=== PATIENT | male | born 1945 | race Caucasian/White ===

== ENCOUNTER 2019-04-30 05:51 | Inpatient (IN) | payer MEDICARE, BC ==
[~2019-04-30 05:51] MED LIST: Buffered Lidocaine 1% SYRIN* 1 ML/SYRINGE INTRADERM ONE
[2019-04-30] MEDS ORDERED: Lactated Ringers 1000 ML Bag* 1,000 ML IV SCH (06:00)
[2019-04-30] MEDS ORDERED: Famotidine IV* 10 MG/ML 2 ML (20 mg) IV ONE (06:00)
[2019-04-30] MEDS ORDERED: Buffered Lidocaine 1% SYRIN* 1 ML/SYRINGE INTRADERM ONE ×2 (06:20→07:14)
[2019-04-30] MEDS ORDERED: Famotidine IV* 10 MG/ML 2 ML (20 mg) ONE (06:20)
[2019-04-30] MEDS ORDERED: ceFAZolin 2 GM in NS PREMIX(*) 2 GM/100 ML BAG IVPB ONE ×2 (06:20→12:35)
[2019-04-30] MEDS ORDERED: Lidocaine 1% MPF wEPI 200,000* 30 ML SDV ONE (06:46)
[2019-04-30] MEDS ORDERED: Bacitracin INJECTION* 50,000 UNITS ONE ×2 (06:47→14:02)
[2019-04-30] MEDS ORDERED: Thrombin 5,000 UNITS* 1 APPLIC KIT - topical use - TOPICAL ONE (06:47)
[2019-04-30 07:38] LABS: Hematocrit 46 % (42-52); Hemoglobin 16.1 g/dL (14.0-18.0); Mean Corpuscular HGB Conc 35 g/dL (31-36); Mean Corpuscular Hemoglobin 32 pg (27-31); Mean Corpuscular Volume 90 fL (80-94); Mean Platelet Volume 8.1 fL (7.4-10.4); Platelet Count 122 10^3/uL (150-450); Red Blood Count 5.08 10^6 /uL (4.18-5.48); Red Cell Distribution Width 13 % (10-15); White Blood Count 3.4 10^3/uL (3.5-10.8)
[2019-04-30] MEDS ORDERED: fentaNYL* 50 MCG/ML 5 ML VIAL (250 MCG VIAL) ONE (07:54)
[2019-04-30] MEDS ORDERED: Midazolam* 1 MG/ML 5 ML VIAL (5 MG) ONE (07:54)
[2019-04-30] MEDS ORDERED: Lidocaine 2% PF * 5 ML VIAL ONE (07:59)
[2019-04-30] MEDS ORDERED: DiMENhydriNATE IV* 50 MG/ML VIAL ONE (07:59)
[2019-04-30] MEDS ORDERED: Dexamethasone IV* 4 MG/ML 1 ML (4 MG) ONE (07:59)
[2019-04-30] MEDS ORDERED: Propofol* 500 MG/50 ML BTL ONE ×2 (07:59→10:42)
[2019-04-30] MEDS ORDERED: Succinylcholine* 20 MG/ML 10 ML VIAL ONE (07:59)
[2019-04-30] MEDS ORDERED: Propofol* 10 MG/ML 20 ML BTL ONE ×3 (07:59→14:12)
[2019-04-30] MEDS ORDERED: Ondansetron INJ* 2 MG/ML VIAL ONE (07:59)
[2019-04-30] MEDS ORDERED: fentaNYL* 50 MCG/ML 2 ML VIAL (100 MCG VIAL) ONE (11:35)
[2019-04-30] MEDS ORDERED: Naloxone* 0.4 MG/ML 1 ML VIAL IV PRN (12:58)
[2019-04-30] MEDS ORDERED: DiMENhydriNATE IV* 50 MG/ML VIAL IV PUSH PRN (12:58)
[2019-04-30] MEDS ORDERED: Acetaminophen IV 1GM/100ML * 1,000 MG/100 ML VIAL IVPB ONE (12:58)
[2019-04-30] MEDS ORDERED: Phenylephrine 10 MG/ML VIAL* 1 ML VIAL ONE (13:26)
[2019-04-30] MEDS ORDERED: Phenylephrine 40 MCG/ML SYRINGE ONE (13:26)
[2019-04-30] MEDS ORDERED: HYDROcodone/ACETAMIN 5-325 MG* 1 TAB PO PRN (15:35)
[2019-04-30] MEDS ORDERED: HYDROmorphone INJ1* 1 MG/ML SYRINGE ONE (15:36)
[2019-04-30] MEDS ORDERED: Acetaminophen IV 1GM/100ML * 100 ML ONE (15:36)
[2019-04-30] MEDS: HYDROmorphone INJ1* 1 MG/ML SYRINGE IV PRN ×5 (15:42→16:23)
[2019-04-30] MEDS ORDERED: Acetaminophen TAB* 325 MG PO PRN (15:59)
--- NOTE | 2019-04-30 18:07 | CONSULT ---
Subjective Date of Service: 04/30/19 Interval History: Date of admission 04/30/2019 Date of consult 04/30/2019 Service: Neurosurgery CC: s/p spine surgery Reason for consult: Cardiac management HISTORY OF PRESENT ILLNESS: Mr. Romeo is a 73-year-old man with a history as below admitted for an elective spine surgery that was uncomplicated. He currently has back pain but denies any CP, dyspnea, palpitations or lightheadedness. His who used to direct palliative medicine at this hospital is at bedside. PAST MEDICAL HISTORY: Significant for: 1. Immune thrombocytopenia. 2. Atrial fibrillation. 3. Lumbar disk disease. 4. Depression. 5. Parkinson's. 6. Chronic diastolic congestive heart failure. Most recent LvEF 01/2019 was 50% 7. History of coronary artery disease with mitral valve repair and bypass surgery. 8. Hypertension. 9. Hyperlipidemia. 10. Paroxysmal atrial fibrillation s/p ablation no longer on anticoagulation, had FIDEL thrombus following MV surgery. 11. VT s/p pacemaker/ICD PAST SURGICAL HISTORY: 1. Bypass surgery. 2. Mitral valve repair. 3. Cardiac catheterization. 4. Pacemaker/icd placement. 5. Bilateral hernia repair. 6. Angioplasty. 7. Laminectomy L3-L4. 8. Fusion of the left toe and right foot. ALLERGIES: To STATINS. FAMILY HISTORY: Father with heart disease, mother with hypertension, sister with diabetes, sister with lung cancer. SOCIAL HISTORY: The patient denies any tobacco. Reports occasional alcohol use. Denies any illicit drug use. He lives with his domestic partner, Sada. Surrogate decision maker in the event he is unable to make his own medical decisions is his partner, Sada. He is a full code. Medications Active Medications: Acetaminophen (Tylenol Tab*) 487.5 mg PO Q6H PRN PRN Reason: PAIN Alprazolam (Xanax Tab*) 3 mg PO BEDTIME EMILEE Amantadine HCl (Symmetrel Cap*) 100 mg PO BID EMILEE Atorvastatin Calcium (Lipitor*) 20 mg PO BEDTIME EMILEE; Protocol Carbidopa/Levodopa (Sinemet 25/100 Tab(*)) 3 tab PO TID EMILEE Docusate Sodium (Colace Cap*) 100 mg PO BID EMILEE Entacapone (Comtan(Nf)) 200 mg PO TID EMILEE Lactated Ringer's (Lactated Ringers 1000 Ml Bag*) 1,000 mls @ 75 mls/hr IV .per rate [facility] Losartan Potassium (Cozaar Tab*) 25 mg PO QAM [facility] Nft: Cyanocobalamin/Cobamamide [Vitamin B-12 5,000 Mcg Tab Sl] 5,000 Mcg) 5, 000 mcg PO QAM [facility] Oxycodone HCl (Roxycodone Tab*) 5 mg PO Q4H PRN PRN Reason: PAIN Oxycodone/Acetaminophen (Percocet 5/325 Tab*) 1 tab PO Q4H PRN PRN Reason: PAIN Sotalol HCl (Betapace Tab*) 80 mg PO BID [facility] Home Medications: ALPRAZolam TAB* [Xanax TAB*] 3 mg PO BEDTIME 11/10/13 [History Confirmed ] Amantadine CAP* [Symmetrel CAP*] 100 mg PO BID 11/10/13 [History Confirmed 04/30] Carbidopa/Levodop 25/100 MG(*) [Sinemet 25/100 TAB(*)] 3 tab PO TID 11/10/13 [ History Confirmed 04/30/19] Cannabidiol (Cbd) Extract [Epidiolex] 100 mg PO BEDTIME 03/30/19 [History Confirmed 04/30/19] Cyanocobalamin/Cobamamide [Vitamin B-12 5,000 Mcg Tab Sl] 5,000 mcg PO QAM 03/30 [History Confirmed 04/30/19] Docusate Sodium [Colace] 100 mg PO BID 03/30/19 [History Confirmed 04/30/19] Entacapone 200 mg PO TID 03/30/19 [History Confirmed 04/30/19] Irbesartan 75 mg PO QAM 03/30/19 [History Confirmed 04/30/19] Rosuvastatin Calcium [Crestor] 10 mg PO BEDTIME 03/30/19 [History Confirmed ] Sotalol HCl [Sotalol] 80 mg PO BID 03/30/19 [History Confirmed 04/30/19] Acetaminophen [Acetaminophen Extra Strength] 500 - 1,000 mg PO Q6H PRN 04/23/19 [History Confirmed 04/30/19] Review of Systems - Measurements Intake and Output: Intake and Output Last 24 Hours 06/04/29/19 04/30/19 05/01/19 06:59 06:59 06:59 06:59 Intake Total 2850 Output Total 600 Balance 2250 Weight 215 lb 220 lb 7.396 oz Intake: IV Fluids 2850 LR 2850 Output: Bentley 600 Other: Estimated Blood Loss 200 Comment - Review of Systems Constitutional Symptoms: Negative: Weight Gain, Weight Loss, Weakness Dermatology: Negative: Skin Lesions, Skin Lumps HEENT: Negative: Change in Hearing, Vertigo Eyes: Negative: Change in Vision, Double Vision Thyroid: Negative: Palpitations Pulmonary: Negative: Cough, Sputum, Respiratory Distress, Exercise Intolerance Cardiology: Negative: Chest Pain, Shortness of Breath, Palpitations, Swelling of Ankles, Peripheral Vascular Dis, Edema, Faintness, Syncope, Claudication, Paroxysmal Nocturnal Dyspnea, Orthopnea Gastroenterology: Negative: Abdominal Pain, Nausea, Vomiting, Anorexia, Blood in Stools, Haematemesis, Melena Genital - Urinary: Negative: Dysuria, Hematuria Musculoskeletal: Negative: Joint Pain, Joint Stiffness Endocrinology: Negative: Family Hx Endocrine Disorders, Polydipsia, Polyuria Hematologic/Lymphatic: Negative: Use of Anticoagulant, Use of Antiplatelet Drugs Neurology: Positive: Normal Negative: Migraines, Change in Vision, Diplopia, Change in Speech, Change in Sphincter Function, Hx Seizures Psychiatry: Negative: Unusual Anxiety, Suicidal Ideation Allergic/Immunologic: Negative: Hx HIV, Immunocompromise Review of Systems Statement: All other review of systems negative, unless stated above. Objective Vital Signs: Temp Pulse Resp BP Pulse Ox 97.4 F 80 8 119/85 100 04/30/19 17:04 04/30/19 17:04 04/30/19 17:04 04/30/19 17:04 04/30/19 17:04 Oxygen Devices in Use Now: Nasal Cannula Appearance: nad, pleasant Ears/Nose/Mouth/Throat: Clear Oropharnyx Neck: NL Appearance and Movements; NL JVP, Trachea Midline Respiratory: Symmetrical Chest Expansion and Respiratory Effort, Clear to Auscultation Cardiovascular: - - RRR, no significant murmur, icd site intact and surgical scar noted Abdominal: NL Sounds; No Tenderness; No Distention Extremities: No Edema, No Clubbing, Cyanosis Skin: No Rash or Ulcers Neurological: Alert and Oriented x 3 Laboratory Results: Diagnostic Imaging: Provider: Gurvinder Gutierrez MD DATE OF CARDIAC CATHETERIZATION: 03/23/2016. INDICATION FOR PROCEDURE: Patient with nonsustained ventricular tachycardia with progressive shortness of breath with exertion, asked by Dr. Jerez to perform diagnostic study to rule out the presence of worsening coronary artery disease with history of prior stents in the past involving reportedly the LAD and the right coronary artery with subsequent bypass to the right coronary artery and valve repair of a flail mitral valve leaflet. Left ventriculography could not be performed as the patient virtually had runs of nonsustained ventricular tachycardia and accuracy would be suboptimal. No attempts were made to suppress this with antiarrhythmic therapy given the fact that the plan was for ablation therapy if there was no progression of coronary artery disease. 1. HEMODYNAMIC DATA: Left heart catheterization - ascending aortic pressure was recorded at 97/64 with a mean of 81. Left ventricular pressure 101/left ventricular end-diastolic pressure on normal beats of 14 to 16 mmHg. 2. CORONARY ARTERIOGRAPHY: A. Right coronary artery - totally occluded in its mid segment with diffuse disease seen proximally leading to an 85 percent stenosis prior to an acute marginal branch. There was no antegrade flow to the distal right coronary artery (this was supplied via the vein graft to the right coronary artery). B. Left coronary artery: 1. Left main - widely patent. 2. Left anterior descending artery - there was calcium seen in the proximal portion. The mid stent was seen in the left anterior descending artery. There was mild to moderate in stent restenosis, the degree of narrowing noted to be approximately 30 to 35 percent. The rest of the left anterior descending artery supplied multiple diagonal branches. There was no significant lesion seen. 3. Circumflex artery - a nondominant vessel supplying a thin first obtuse marginal branch followed by a moderate size mid obtuse marginal branch. The moderate size mid obtuse marginal branch appeared to have a proximal/ostial narrowing of 55 to 60 percent in its worst view, appearing less in other views. The continuation of the circumflex supplied two low lying obtuse marginal branches. No significant disease was seen past this point. Vein graft to right coronary artery widely patent with good anastomosis. There was retrograde filling to the posterior left ventricular branch. No significant obstruction was visualized involving the PDA or the posterior left ventricular branch. OVERALL ASSESSMENT: Mild/mild to moderate in stent restenosis in the left anterior descending artery of 35, perhaps approaching 40 percent. No significant narrowing. 55 to 60 percent ostial to proximal narrowing of a moderate size mid obtuse marginal branch. Totally occluded mid right coronary artery with an 85 percent lesion seen just prior to a mid acute marginal branch to the right ventricle. Normal blood flow to the PDA and posterior left ventricular branch via a patent vein graft to the PDA. Normal left ventricular end-diastolic pressure on normal sinus beats with the inability to obtain an accurate left ventriculogram due to ventricular tachycardia, and as such it was not attempted. EKG Data: ekg 04/30/2019 AP-ASSESSMENT DIRECTOR several [place] beats 04/26/2019 nsr several paced beat small inferior q waves st depression [id number] qtc 441 Assessment/Plan Patient s/p elective spine surgery 1. MV repair 2. CAD s/p CABG/CA - LVEF 50% 3. VT - s/p PM/ICD 4. Afib s/p PVI - Has been in NSR - Not on AC or aspirin due to ITP continue sotalol 80 mg po bid continue ARB check bmp, mg tomorrow at very least should be on aspirin now that platelets are stable but with post- operative status this can be deferred to Dr. Gallegos as an outpatient Thank you for allowing me to participate in the cardiovascular care of this patient. Please do not hesitate to contact me with questions or concerns.
[2019-04-30] MEDS: Lactated Ringers 1000 ML Bag* 1,000 ML IV SCH (18:39)
[2019-04-30] MEDS: oxyCODONE/Acetamin 5/325 MG* TAB PO PRN ×2 (18:43→23:30)
--- NOTE | 2019-04-30 20:42 | OP ---
DATE OF OPERATION: 04/30/19 - ROOM #ICU-01 DATE OF : 49 SURGEON: Bo Maya MD MEDICAL SERVICES MANAGER: JULIO CESAR Gonzalez. The case was done with assistance of surgical PA because of the complexity of the case. ANESTHESIA: General. PRE-OP DIAGNOSES: 1. Degenerative disk disease. 2. Adjacent level disease. POST-OP DIAGNOSES: 1. Degenerative disk disease. 2. Adjacent level disease. OPERATIVE PROCEDURE: The patient underwent left L3-4 MIS TLIF with revision of previous instrumentation and fusion at L4 and L5 with removal of L5 pedicle screws, replacement of L4 pedicle screws and placement of L3 pedicle screws with PEEK expandable interbody cage with left iliac crest bone graft through a separate incision, locally harvested autograft and DBX with intraoperative navigation, intraoperative monitoring. ESTIMATED BLOOD LOSS: 100 cc. COMPLICATIONS: None. SUMMARY: The patient is a very pleasant 73-year-old gentleman with multiple medical comorbidities including Parkinson's disease, heart disease, ITP, who has a history of L4-5 posterolateral fusion with pedicle screws and decompression by Dr. Hanna in 2010. The patient returned with complaints of back pain radiating to both lower extremities, left worse than the right, with MRI findings consistent with adjacent level disease. The patient, after failing conservative treatment modalities was offered the option of surgical intervention in the form of revision of L4-5 instrumentation and fusion and left L3-4 TLIF. After explaining the expectations, limitations, and possible complications of the procedure to the patient and his with complications including, but not limited to bleeding, infection, risk of injury to adjacent structures, coma, paralysis, , need for additional procedures, anesthesia risks, stroke, blindness, cancer, instability, hardware failure, adjacent level disease, pseudoarthrosis, spinal fluid leak, possibility of hematoma, intraabdominal content injury, loss of bladder or bowel control, need for transfusions, massive bleeding, need for prolonged ICU stay, prolonged hospitalization, prolonged rehabilitation, need for tracheostomy or gastrostomy ; the patient and his were agreeable to proceed with surgery and informed consent was obtained. The patient understood that his condition may not improve and in fact may get worse after surgery and that he may need to have additional procedures in the future. He also understood that operative plan may be modified according to intraoperative findings and conditions and that the procedure may be abandoned or done in more than 1 stages. DESCRIPTION OF PROCEDURE: The patient was brought to the operating room and was placed under general anesthesia by the anesthesia team. He was carefully positioned prone on the Miko table and all bony prominences were meticulously padded. His skin was prepped and draped in the standard fashion. After appropriate surgical pause and patient identification, the previous midline incision was identified and extended slightly caudal and more cephalad. The skin was undermined to gain access through a lateral approach, of the Mari type. Through a separate skin incision, left iliac crest bone graft was harvested with a Corex needle and the navigation star was secured in place. Intraoperative O-arm imaging was obtained and the patient's data was transferred to the navigation platform under stereotactic navigation. The trajectories of L3 pedicle screws as well as the position of the L4 and L5 pedicle screws were determined. Two small paramedian incisions were made on the dorsal fascia and under stereotactic navigation, the tubular retractor system was brought into the field exposing the right side L4 and L5 pedicle screws through a Mari trajectory. The screw head caps were then gently removed. Synthes Click'X System was used before. The priscila was then gently removed and the L4 and L5 pedicle screws on the right were removed. The right L4 pedicle screw was then replaced with 6.5x50mm Medtronic Voyager ATS pedicle screws while a same size new pedicle screw was placed on L3 after creating a instructor pilot hole with high-speed drill and cannulating the pedicle with awl-tip tap. The procedure was then repeated for the instrumentation on the left side. Then , attention was brought out to place the METRx retractor system over the left L3 -4 facet in conjunction with the left L3 lamina as well as base of the spinous process. After exposing all the bony elements, high-speed drill and Kerrison punches were used to perform a medial facetectomy, partial laminectomy, as well as partial removal of the pars, as well as removal of part of the superior L4 lamina. Locally harvested bone graft was saved to use for the arthrodesis part of the procedure. The ligamentum flavum was then gently elevated and removed with Kerrison punches. The thecal sac as well as the L4 nerve root were readily identified and were gently retracted. A standard diskectomy and preparation of the disk space was performed after incising the annulus fibrosus with a #15 surgical blade. A series of pituitary rongeurs, dilators and curettes were used to perform the preparation of the endplate and disk space. Then, a mixture of iliac crest bone graft, locally harvested autograft and DBX were placed into the disk space and a 10-mm expandable Elevate Medtronic PEEK cage was inserted after being packed with the mixture of the bone graft. The cage was then expanded and after confirmation of meticulous hemostasis, copious irrigation, and meticulous inspection, the tubular retractor was removed. The priscila size was then determined with use of a caliper and 2 cobalt chrome rods were inserted with the same facia wound incisions and secured with screw head caps. A second O-arm imaging was obtained, which confirmed excellent placement of all hardware. After copious irrigation, confirmation of meticulous hemostasis, and after securing the screw head caps and removing the priscila inserters, the dorsal fascia defects were closed with 0 interrupted Vicryl sutures and the wound was closed by layers with inverted interrupted 0 and 2-0 Vicryl sutures for subcutaneous tissue. 2-0 inverted interrupted Vicryl sutures were used to approximate the subcutaneous tissue at the left iliac crest incision. Both incisions were covered with Dermabond. At the end of the procedure, all counts were reported to be correct. The patient remained hemodynamically stable and intraoperative electro-physiological monitoring remained stable throughout the case. The patient was then turned supine, was extubated and was transferred to Recovery in excellent condition. [id number]/[facility] #: [id number] KEIKO
[2019-04-30] MEDS: ALPRAZolam TAB* 0.5 MG PO SCH (21:12)
[2019-04-30] MEDS: Amantadine CAP* 100 MG PO SCH (21:13)
[2019-04-30] MEDS: Docusate CAP* 100 MG PO SCH (21:13)
[2019-04-30] MEDS: CMCS: Entacapone (NF) 200 MG TAB PO SCH (21:13)
[2019-04-30] MEDS: Atorvastatin* 20 MG TAB PO SCH (21:13)
[2019-04-30] MEDS: Sotalol TAB* 80 MG PO SCH (21:13)
[2019-04-30] MEDS: Carbidopa/Levodop 25/100 MG TAB(*) PO SCH (21:13)
[2019-05-01] MEDS: oxyCODONE TAB* 5 MG TAB PO PRN ×4 (01:12→23:46)
--- NOTE | 2019-05-01 03:07 | CONS ---
[facility] MEDICINE CONSULTATION REPORT: DATE OF CONSULT: 04/30/19 PROVIDER: Kellen Herrera NP ATTENDING PHYSICIAN: Dr. Maya. CONSULTING PHYSICIAN: John Pritchard M.D. REASON FOR CONSULT: Co-management of chronic medical conditions. HISTORY OF PRESENT ILLNESS: Mr. Romeo is a 73-year-old male with a past medical history significant for ITP, atrial fibrillation, past history of apical appendage clot, hypertension, hyperlipidemia, lumbar disk disease, depression, Parkinson's, atrial fibrillation, chronic diastolic congestive heart failure, hyperlipidemia, who presented to [facility] for an elective decompression surgery and fusion of the L-spine with Dr. Maya. For complete details, please see the dictated H and P from Dr. Maya. In brief, the patient had ongoing pain, failed conservative measures. Therefore, opted to have lumbar fusion with Dr. Maya. Due to his history of ITP, atrial fibrillation, Parkinson's, depression, history of coronary artery disease and chronic diastolic congestive heart failure, hypertension, hyperlipidemia, we were asked to consult to help co- manage his chronic medical conditions. PAST MEDICAL HISTORY: Significant for: 1. Immune thrombocytopenia. 2. Atrial fibrillation. 3. Lumbar disk disease. 4. Depression. 5. Parkinson's. 6. Chronic diastolic congestive heart failure. 7. History of coronary artery disease with mitral valve repair and bypass surgery. 8. Hypertension. 9. Hyperlipidemia. PAST SURGICAL HISTORY: 1. Bypass surgery. 2. Mitral valve repair. 3. Cardiac catheterization. 4. Pacemaker placement. 5. Bilateral hernia repair. 6. Angioplasty. 7. Laminectomy L3-L4. 8. Fusion of the left toe and right foot. HOME MEDICATIONS: 1. Alprazolam 3 mg p.o. at bedtime. 2. Symmetrel 100 mg p.o. b.i.d. 3. Atorvastatin 20 mg at bedtime. 4. Carbidopa/levodopa 25/100 3 tablets 3 times a day. 5. Acetaminophen extra strength 500 to 1000 mg every 6 hours as needed for pain. 6. Vitamin B12 5000 mcg p.o. q.a.m. 7. Colace 100 mg p.o. b.i.d. 8. Irbesartan 75 mg p.o. daily. 9. Crestor 10 mg p.o. daily. 10. Sotalol 80 mg p.o. b.i.d. 11. Entacapone 200 mg p.o. t.i.d. ALLERGIES: To STATINS. FAMILY HISTORY: Father with heart disease, mother with hypertension, sister with diabetes, sister with lung cancer. SOCIAL HISTORY: The patient denies any tobacco. Reports occasional alcohol use. Denies any illicit drug use. He lives with his domestic partner, Sada. Surrogate decision maker in the event he is unable to make his own medical decisions is his partner, Sada. He is a full code. REVIEW OF SYSTEMS: He denies any fever, chills, unintended weight loss, chest pain, or edema. Denies any cough, hemoptysis, or shortness of breath. He does report he had an episode of vomiting approximately 2 days ago. No diarrhea or abdominal pain. No hematuria or dysuria. Denies any focal weakness or sensory loss. He does complain of left leg weakness and gait abnormality that is chronic. The left leg is worse than the right due to his Parkinson's. No visual complaints. He does report occasional difficulty swallowing. Denies any arthralgias or myalgias, rashes, lesions or open sores, psychosis or anxiety. PHYSICAL EXAMINATION: General: At this time, Mr. Romeo is a 73-year-old male. He is resting comfortably in his hospital room in bed. He is in no acute distress. Vital Signs: Blood pressure 124/64, heart rate 81, respirations are 16, O2 saturation 99%, temperature of 97.4. HEENT: Head is atraumatic, normocephalic. Eyes: EOMs are intact. Sclerae anicteric and not pale. Oral mucosa appeared to be moist. Neck is supple. Lungs are clear to auscultation bilaterally. No wheezes, rales, or rhonchi. Cardiac: S1, S2. Regular rate and rhythm. No rubs or gallops. Abdomen is soft and nontender. Bowel sounds are present x4. Extremities: He is able to feel bilateral lower extremities. Pedal pulses are +2. Sensation is intact. Neurologic: He is awake, alert, oriented x3. Speech is clear. Thought process is intact. There are no gross focal deficits. LABORATORY DATA AND DIAGNOSTIC STUDIES: WBCs are 3.4, RBCs 5.08, hemoglobin 16.1, hematocrit was 46, platelet count was 122. INR on 04/23/19 was 1.05. Sodium was 139, potassium 4.0, chloride 102, carbon dioxide 32, anion gap was 5 , BUN was 23, creatinine 1.02, glucose was 90, calcium 9.8. Urine was within normal limits with exception of specific gravity of 1.033, ketones were trace. IMPRESSION AND PLAN: Mr. Romeo is a 73-year-old male with past medical history significant for atrial fibrillation with ICD pacemaker, immune thrombocytopenia, lumbar disk disease, depression, Parkinson's, coronary artery disease, status post bypass, hypertension, hyperlipidemia, and chronic diastolic congestive heart failure, who presented to [facility] for an elective lumbar fusion with Dr. Maya. In the immediate postoperative period, he has no complaints. Our recommendations are as follows: 1. Status post lumbar TLIF revision and fusion at L4-L5. Management per Neurosurgery. PT/OT per Neurosurgery. Pain management per Neurosurgery. Bowel regimen per Neurosurgery. 2. Atrial fibrillation and coronary artery disease. I agree with the recommendations from Cardiology. We will get an EKG, repeat a BMP and mag in the a.m. and continue him on his sotalol for atrial fibrillation. 3. Hypertension. We will continue on Avapro 75 mg p.o. daily. 4. Hyperlipidemia. He will continue on his Crestor 10 mg p.o. daily as previously prescribed. 5. Parkinson's. The patient currently takes Sinemet 25/100 3 tablets 3 times a day. I would recommend that we continue his Sinemet as previously prescribed. 6. Anxiety, depression. He should continue on alprazolam 3 mg as previously prescribed. 7. Immune thrombocytopenia. I would recommend repeat CBC and monitor the patient's platelet count. I would avoid anticoagulation unless advised by Hematology and Oncology. We will defer DVT prophylaxis to Oncology and Neurosurgery. 8. FEN. He can have a heart healthy, caffeine okay diet. 9. Code status. He is a full code. 10. DVT prophylaxis. Per Neurosurgery and Hematology-Oncology. TIME SPENT: Time spent on this consultation was 60 minutes, greater than half the time was spent at the bedside reviewing events leading thus far to this hospitalization, performing physical exam and reviewing my plan of care. I discussed this with my attending, Dr. John Pritchard; he is in agreement with my plan. KELLEN HERRERA, FILM DEVELOPING MACHINE OPERATOR [id number]/[facility] #: [id number] [facility] HOSPITALDeonte
[2019-05-01 05:44] LABS: Hematocrit 41 % (42-52); Hemoglobin 14.3 g/dL (14.0-18.0); Mean Corpuscular HGB Conc 35 g/dL (31-36); Mean Corpuscular Hemoglobin 32 pg (27-31); Mean Corpuscular Volume 91 fL (80-94); Mean Platelet Volume 7.8 fL (7.4-10.4); Platelet Count 105 10^3/uL (150-450); Red Blood Count 4.49 10^6 /uL (4.18-5.48); Red Cell Distribution Width 13 % (10-15); White Blood Count 7.3 10^3/uL (3.5-10.8)
[2019-05-01 06:07] LABS: BUN/Creatinine Ratio 16.8 (8-20); Calcium 8.7 mg/dL (8.6-10.3); EGFR African American 94.6 (>60); EGFR Non-African American 78.2 (>60); Magnesium 1.7 mg/dL (1.9-2.7); Potassium 4.4 mmol/L (3.5-5.0)
[2019-05-01] MEDS: oxyCODONE/Acetamin 5/325 MG* TAB PO PRN ×4 (07:03→23:46)
[2019-05-01] MEDS: Lactated Ringers 1000 ML Bag* 1,000 ML IV SCH (07:03)
[2019-05-01] MEDS ORDERED: Magnesium Sulfate IV* 3 GM in NS 0.9% 100 ML* 100 ML IVPB ONE (07:58)
[2019-05-01] MEDS ORDERED: NS 0.9% 100 ML* 100 ML ONE (08:36)
--- NOTE | 2019-05-01 08:36 | PN ---
Progress Note - Progress Note Date of Service: 05/01/19 SOAP: Subjective: 73 y/o male post TLIF of L3/L4, L4/L5 POD # 1 with ITP, AFIB, and BPH, patient is recovering well in ICU. He reports improvement with his radicular and axial pain. He does have some discomfort around the incision, but feels pain has been well controlled with pain medication. The order was put to D/C rubalcava, but patient wanted to keep it in because he typically has frequent urination due to his BPH. This morning he denies SOB, CP or palpations. He has been tolerating orals over night. Patient doing well, will possible be transferred to step down unit. Objective: Vital Signs - 12 hr Temp Pulse Resp BP Pulse Ox 05/01/19 08:01 71 22 111/65 99 05/01/19 08:00 64 23 96 05/01/19 07:03 12 05/01/19 07:01 13 103/59 99 05/01/19 07:00 23 98 05/01/19 06:00 99.1 F 70 11 87/50 100 05/01/19 05:00 68 11 77/47 98 05/01/19 04:00 70 10 84/47 94 05/01/19 03:44 98.9 F 05/01/19 03:02 70 11 78/48 96 05/01/19 03:00 71 12 79/47 97 05/01/19 02:01 76 9 88/49 94 05/01/19 02:00 83 20 95 05/01/19 01:00 80 12 99/66 98 05/01/19 00:18 85 21 93 05/01/19 00:01 86 13 80/55 95 05/01/19 00:00 78 12 94 04/30/19 23:36 99.7 F 04/30/19 23:30 17 04/30/19 23:01 81 7 107/58 97 04/30/19 23:00 84 3 97 04/30/19 22:00 77 16 95 04/30/19 21:12 17 04/30/19 21:00 70 13 99 General: Patient laying flat in bed, NAD Neuro: GCS 15. A&O x 3, CN - XII grossly intact, EOM intact. UPE motor strength 5/5, LE motor strength 5/5 bilaterally Derm: wound C/D/I Assessment: 73 y/o post TLIF of L3/L4, L4/L5 POD#1 doing well, having some some post op pain controlled with medication. Patient has been stable in ICU and will possible be transferred out to step down unit. Plan: 1) Transfer to step down unit 2) continue follow up Medicine recommendations 3) Follow up Cardiology recommendations 4) Follow up Hematology recommendations 5) work with PT/OT 6) Follow up CBC results monitor platelet count 7) Get AP lateral Xrays this morning.
[2019-05-01] MEDS: Sotalol TAB* 80 MG PO SCH ×2 (08:43→21:48)
[2019-05-01] MEDS: Amantadine CAP* 100 MG PO SCH ×2 (08:43→21:47)
[2019-05-01] MEDS: Losartan TAB* 25 MG PO SCH (08:43)
[2019-05-01] MEDS: Carbidopa/Levodop 25/100 MG TAB(*) PO SCH ×3 (08:43→21:48)
[2019-05-01] MEDS: Docusate CAP* 100 MG PO SCH ×2 (08:44→21:48)
[2019-05-01] MEDS: CMCS: Entacapone (NF) 200 MG TAB PO SCH ×3 (08:44→21:49)
[2019-05-01] MEDS: COBAMAMIDE PO SCH (08:45)
[2019-05-01] MEDS: CYANOCOBALAMIN PO SCH (08:45)
--- NOTE | 2019-05-01 09:26 | PN ---
Subjective Date of Service: 05/01/19 Interval History: f/u POD 1 spine surgery, CAD/CABG, MV repair, VT, PM/ICD, Pafib patient has low back pain no cp or dyspnea tele: NSR, paced rhythm intermittent, pvcs Medications Active Medications: Acetaminophen (Tylenol Tab*) 487.5 mg PO Q6H PRN PRN Reason: PAIN Last Admin: 05/01/19 08:43 Dose: 487.5 mg Alprazolam (Xanax Tab*) 3 mg PO BEDTIME [facility] Last Admin: 04/30/19 21:12 Dose: 3 mg Amantadine HCl (Symmetrel Cap*) 100 mg PO BID [facility] Last Admin: 05/01/19 08:43 Dose: 100 mg Atorvastatin Calcium (Lipitor*) 20 mg PO BEDTIME [facility]; Protocol Last Admin: 04/30/19 21:13 Dose: 20 mg Carbidopa/Levodopa (Sinemet 25/100 Tab(*)) 3 tab PO TID [facility] Last Admin: 05/01/19 08:43 Dose: 3 tab Docusate Sodium (Colace Cap*) 100 mg PO BID [facility] Last Admin: 05/01/19 08:44 Dose: 100 mg Entacapone (Comtan(Nf)) 200 mg PO TID [facility] Last Admin: 05/01/19 08:44 Dose: 200 mg Lactated Ringer's (Lactated Ringers 1000 Ml Bag*) 1,000 mls @ 75 mls/hr IV .per rate [facility] Last Admin: 05/01/19 07:03 Dose: 75 mls/hr Magnesium Sulfate 3 gm/ Sodium (Chloride) 106 mls @ 53 mls/hr IVPB ONCE ONE Stop: 05/01/19 09:57 Last Admin: 05/01/19 08:40 Dose: 53 mls/hr Losartan Potassium (Cozaar Tab*) 25 mg PO QAM [facility] Last Admin: 05/01/19 08:43 Dose: 25 mg Nft: Cyanocobalamin/Cobamamide [Vitamin B-12 5,000 Mcg Tab Sl] 5,000 Mcg) 5, 000 mcg PO QAM [facility] Last Admin: 05/01/19 08:45 Dose: Not Given Oxycodone HCl (Roxycodone Tab*) 5 mg PO Q4H PRN PRN Reason: PAIN Last Admin: 05/01/19 01:12 Dose: 5 mg Oxycodone/Acetaminophen (Percocet 5/325 Tab*) 1 tab PO Q4H PRN PRN Reason: PAIN Last Admin: 05/01/19 07:03 Dose: 1 tab Sotalol HCl (Betapace Tab*) 80 mg PO BID [facility] Last Admin: 05/01/19 08:43 Dose: 80 mg Objective Vital Signs: Temp Pulse Resp BP Pulse Ox 99.1 F 72 16 109/67 96 05/01/19 08:00 05/01/19 09:01 05/01/19 09:01 05/01/19 09:01 05/01/19 09:01 Oxygen Devices in Use Now: Nasal Cannula Appearance: nad, pleasant Ears/Nose/Mouth/Throat: Clear Oropharnyx Neck: NL Appearance and Movements; NL JVP, Trachea Midline Respiratory: Symmetrical Chest Expansion and Respiratory Effort, Clear to Auscultation Cardiovascular: - - RRR, no significant murmur, icd site intact and surgical scar noted Abdominal: NL Sounds; No Tenderness; No Distention Extremities: No Edema, No Clubbing, Cyanosis Skin: No Rash or Ulcers Neurological: Alert and Oriented x 3 Laboratory Results: 05/01/19 05:27 05/01/19 05:27 mg 1.7 this am Diagnostic Imaging: Provider: Gurvinder Gutierrez MD DATE OF CARDIAC CATHETERIZATION: 03/23/2016. INDICATION FOR PROCEDURE: Patient with nonsustained ventricular tachycardia with progressive shortness of breath with exertion, asked by Dr. Jerez to perform diagnostic study to rule out the presence of worsening coronary artery disease with history of prior stents in the past involving reportedly the LAD and the right coronary artery with subsequent bypass to the right coronary artery and valve repair of a flail mitral valve leaflet. Left ventriculography could not be performed as the patient virtually had runs of nonsustained ventricular tachycardia and accuracy would be suboptimal. No attempts were made to suppress this with antiarrhythmic therapy given the fact that the plan was for ablation therapy if there was no progression of coronary artery disease. 1. HEMODYNAMIC DATA: Left heart catheterization - ascending aortic pressure was recorded at 97/64 with a mean of 81. Left ventricular pressure 101/left ventricular end-diastolic pressure on normal beats of 14 to 16 mmHg. 2. CORONARY ARTERIOGRAPHY: A. Right coronary artery - totally occluded in its mid segment with diffuse disease seen proximally leading to an 85 percent stenosis prior to an acute marginal branch. There was no antegrade flow to the distal right coronary artery (this was supplied via the vein graft to the right coronary artery). B. Left coronary artery: 1. Left main - widely patent. 2. Left anterior descending artery - there was calcium seen in the proximal portion. The mid stent was seen in the left anterior descending artery. There was mild to moderate in stent restenosis, the degree of narrowing noted to be approximately 30 to 35 percent. The rest of the left anterior descending artery supplied multiple diagonal branches. There was no significant lesion seen. 3. Circumflex artery - a nondominant vessel supplying a thin first obtuse marginal branch followed by a moderate size mid obtuse marginal branch. The moderate size mid obtuse marginal branch appeared to have a proximal/ostial narrowing of 55 to 60 percent in its worst view, appearing less in other views. The continuation of the circumflex supplied two low lying obtuse marginal branches. No significant disease was seen past this point. Vein graft to right coronary artery widely patent with good anastomosis. There was retrograde filling to the posterior left ventricular branch. No significant obstruction was visualized involving the PDA or the posterior left ventricular branch. OVERALL ASSESSMENT: Mild/mild to moderate in stent restenosis in the left anterior descending artery of 35, perhaps approaching 40 percent. No significant narrowing. 55 to 60 percent ostial to proximal narrowing of a moderate size mid obtuse marginal branch. Totally occluded mid right coronary artery with an 85 percent lesion seen just prior to a mid acute marginal branch to the right ventricle. Normal blood flow to the PDA and posterior left ventricular branch via a patent vein graft to the PDA. Normal left ventricular end-diastolic pressure on normal sinus beats with the inability to obtain an accurate left ventriculogram due to ventricular tachycardia, and as such it was not attempted. EKG Data: ekg 04/30/2019 [employer] several hopi beats 04/26/2019 nsr several paced beat small inferior q waves st depression v4-v6 qtc 441 Assessment/Plan Patient s/p elective spine surgery 1. MV repair 2. CAD s/p CABG/CO - LVEF 50% 3. VT - s/p PM/ICD 4. Afib s/p PVI - Has been in NSR - Not on AC or aspirin due to ITP continue sotalol 80 mg po bid continue ARB mg 1.7, give 3 grams IV x 1 now (ordered). Advised start oral supplement as outpatient have level rechecked at some point at very least should be on aspirin now that platelets are stable but with post- operative status this can be deferred to Dr. Gallegos as an outpatient Thank you for allowing me to participate in the cardiovascular care of this patient. Please do not hesitate to contact me with questions or concerns.
[2019-05-01] MEDS: Polyethylene Glycol 3350* 17 GM PACKET PO SCH (12:31)
[2019-05-01] MEDS ORDERED: Cyclobenzaprine TAB* 10 MG PO PRN (16:30)
--- NOTE | 2019-05-01 17:58 | PN ---
Progress Note - Progress Note Date of Service: 05/01/19 SOAP: Subjective: [Patient is POD #1 s/p TLIF. Neurosurgery requested hematology consultation due to h/o ITP. Platelets had been stable at ~35-45K since 2015 without major bleeding episodes. Due to increasing back pain secondary to spinal stenosis and plans for a surgical procedure his ITP was treated initially with high dose dexamethasone starting the end of January. He unfortunately did not respond to dexamethasone and was treated with IVIG after which he had a good response and his preoperative platelets were 120K. Patient reports he is doing well postoperatively. No bleeding complications. Transferred out of ICU to surgical floor earlier today. Objective: [ Vital Signs: Temp Pulse Resp BP Pulse Ox 98.0 F 88 18 110/64 98 05/01/19 15:32 05/01/19 15:32 05/01/19 16:47 05/01/19 15:32 05/01/19 15:32 Acetaminophen (Tylenol Tab*) 487.5 mg PO Q6H PRN PRN Reason: PAIN Last Admin: 05/01/19 08:43 Dose: 487.5 mg Alprazolam (Xanax Tab*) 3 mg PO BEDTIME [facility] Last Admin: 04/30/19 21:12 Dose: 3 mg Amantadine HCl (Symmetrel Cap*) 100 mg PO BID [facility] Last Admin: 05/01/19 08:43 Dose: 100 mg Atorvastatin Calcium (Lipitor*) 20 mg PO BEDTIME [facility]; Protocol Last Admin: 04/30/19 21:13 Dose: 20 mg Carbidopa/Levodopa (Sinemet 25/100 Tab(*)) 3 tab PO TID [facility] Last Admin: 05/01/19 14:08 Dose: 3 tab Cyclobenzaprine HCl (Flexeril Tab*) 10 mg PO TID PRN PRN Reason: muscle ache Last Admin: 05/01/19 16:47 Dose: 10 mg Docusate Sodium (Colace Cap*) 100 mg PO BID [facility] Last Admin: 05/01/19 08:44 Dose: 100 mg Entacapone (Comtan(Nf)) 200 mg PO TID [facility] Last Admin: 05/01/19 14:08 Dose: 200 mg Losartan Potassium (Cozaar Tab*) 25 mg PO QAM [facility] Last Admin: 05/01/19 08:43 Dose: 25 mg Nft: Cyanocobalamin/Cobamamide [Vitamin B-12 5,000 Mcg Tab Sl] 5,000 Mcg) 5, 000 mcg PO QAM [facility] Last Admin: 05/01/19 08:45 Dose: Not Given Oxycodone HCl (Roxycodone Tab*) 5 mg PO Q4H PRN PRN Reason: PAIN Last Admin: 05/01/19 13:08 Dose: 5 mg Oxycodone/Acetaminophen (Percocet 5/325 Tab*) 1 tab PO Q4H PRN PRN Reason: PAIN Last Admin: 05/01/19 13:07 Dose: 1 tab Polyethylene Glycol/Electrolytes (Miralax*) 17 gm PO DAILY [facility] Last Admin: 05/01/19 12:31 Dose: 17 gm Sotalol HCl (Betapace Tab*) 80 mg PO BID [facility] Last Admin: 05/01/19 08:43 Dose: 80 mg Laboratory Results - last 24 hr 05/01/19 05/01/19 05:27 05:27 WBC 7.3 RBC 4.49 Hgb 14.3 Hct 41 L MCV 91 MCH 32 H MCHC 35 RDW 13 Plt Count 105 L MPV 7.8 Sodium 135 Potassium 4.4 Chloride 103 Carbon Dioxide 28 Anion Gap 4 BUN 16 Creatinine 0.95 Est GFR ( Amer) 94.6 Est GFR (Non-Af Amer) 78.2 BUN/Creatinine Ratio 16.8 Glucose 123 H Calcium 8.7 Magnesium 1.7 L Exam: Gen: Relatively well appearing 73 yo male in NAD HEENT: MMM CV: RRR Resp: CTA MS: not examined Skin: no obvious bleeding/bruising] Assessment: [This is a 73 yo male with longstanding history of ITP treated in 02/2019 with IVIG with a subsequent positive response. He has had no bleeding complications perioperatively.] Plan: [1. h/o ITP - platelets remain stable and >100K - recommend daily CBC - if platelets fall, will repeat IVIG 2. Spinal stenosis s/p TLIF - management per neurosurgery Dispo: hematology will follow daily CBC]
--- NOTE | 2019-05-01 18:45 | PN ---
Subjective Date of Service: 05/01/19 Interval History: Seen this morning in ICU before he was transferred to [facility]. He report mild numbness of his right thigh but otherwise no acute events. Surgery cleared him to start PT. taking po well. pain seems to be controlled. Mag was 1.7 supplemented by Cardiology already. Past Medical History: Unchanged from Admission Objective Active Medications: Acetaminophen (Tylenol Tab*) 487.5 mg PO Q6H PRN PRN Reason: PAIN Last Admin: 05/01/19 08:43 Dose: 487.5 mg Alprazolam (Xanax Tab*) 3 mg PO BEDTIME [facility] Last Admin: 04/30/19 21:12 Dose: 3 mg Amantadine HCl (Symmetrel Cap*) 100 mg PO BID [facility] Last Admin: 05/01/19 08:43 Dose: 100 mg Atorvastatin Calcium (Lipitor*) 20 mg PO BEDTIME [facility]; Protocol Last Admin: 04/30/19 21:13 Dose: 20 mg Carbidopa/Levodopa (Sinemet 25/100 Tab(*)) 3 tab PO TID [facility] Last Admin: 05/01/19 14:08 Dose: 3 tab Cyclobenzaprine HCl (Flexeril Tab*) 10 mg PO TID PRN PRN Reason: muscle ache Last Admin: 05/01/19 16:47 Dose: 10 mg Docusate Sodium (Colace Cap*) 100 mg PO BID [facility] Last Admin: 05/01/19 08:44 Dose: 100 mg Entacapone (Comtan(Nf)) 200 mg PO TID [facility] Last Admin: 05/01/19 14:08 Dose: 200 mg Losartan Potassium (Cozaar Tab*) 25 mg PO QAM [facility] Last Admin: 05/01/19 08:43 Dose: 25 mg Nft: Cyanocobalamin/Cobamamide [Vitamin B-12 5,000 Mcg Tab Sl] 5,000 Mcg) 5, 000 mcg PO QAM [facility] Last Admin: 05/01/19 08:45 Dose: Not Given Oxycodone HCl (Roxycodone Tab*) 5 mg PO Q4H PRN PRN Reason: PAIN Last Admin: 05/01/19 13:08 Dose: 5 mg Oxycodone/Acetaminophen (Percocet 5/325 Tab*) 1 tab PO Q4H PRN PRN Reason: PAIN Last Admin: 05/01/19 13:07 Dose: 1 tab Polyethylene Glycol/Electrolytes (Miralax*) 17 gm PO DAILY [facility] Last Admin: 05/01/19 12:31 Dose: 17 gm Sotalol HCl (Betapace Tab*) 80 mg PO BID [facility] Last Admin: 05/01/19 08:43 Dose: 80 mg Vital Signs - 8 hr 05/01/19 05/01/19 05/01/19 11:18 12:36 13:07 Temperature 99 F Pulse Rate 70 Respiratory 18 16 18 Rate Blood Pressure 98/54 (mmHg) O2 Sat by Pulse 98 Oximetry 05/01/19 05/01/19 05/01/19 13:08 15:07 15:32 Temperature 98.0 F Pulse Rate 88 Respiratory 18 16 16 Rate Blood Pressure 110/64 (mmHg) O2 Sat by Pulse 98 Oximetry 05/01/19 16:47 Temperature Pulse Rate Respiratory 18 Rate Blood Pressure (mmHg) O2 Sat by Pulse Oximetry Oxygen Devices in Use Now: None Appearance: awake, alert. no distress Eyes: No Scleral Icterus Ears/Nose/Mouth/Throat: NL Teeth, Lips, Gums, Mucous Membranes Moist Neck: NL Appearance and Movements; NL JVP, Trachea Midline Respiratory: Symmetrical Chest Expansion and Respiratory Effort, Clear to Auscultation Cardiovascular: NL Sounds; No Murmurs; No JVD, RRR Abdominal: NL Sounds; No Tenderness; No Distention Extremities: No Edema Neurological: Alert and Oriented x 3 Result Diagrams: 05/01/19 05:27 05/01/19 05:27 Microbiology and Other Data: Microbiology 04/30/19 17:09 Nasal Screen MRSA (PCR) - Final Nasal Mrsa Not Detected Assess/Plan/Problems-Billing Assessment: 73 y/o male admitted for TLIF of L3/L4, L4/L5 POD # 1 history of ITP, Parkinson , Afib, CAD we were to follow and comanage his parkinsons along with his Hematology for ITP and CAD/Afib with Cardiology - Patient Problems (1) Lumbar stenosis Current Visit: Yes Status: Acute Code(s): M48.061 - SPINAL STENOSIS, LUMBAR REGION WITHOUT NEUROGENIC YEN SNOMED Code(s): 15959377 Comment: - s/p TLIF of L3/L4, L4/L5 POD # 1 - Pain and activity as per neurosurgery (2) History of ITP Current Visit: Yes Status: Acute Code(s): Z86.2 - PRSNL HISTORY OF [facility] Code(s): 940072302 Comment: - Hematology on board - CBC daily and treatment with IVIG if platelet drops (3) Afib Current Visit: Yes Status: Acute Code(s): I48.91 - UNSPECIFIED ATRIAL FIBRILLATION SNOMED Code(s): 15493245 Comment: - Cardiology on board - s/p PPM/ICD. Continue sotalol 80 mg po bid and ARB losartan 25 mg daily - Mg 1.7, s/p 3 grams IV x 1 ordered by cardiology - f/u BMP ang mag in am (4) Depression Current Visit: Yes Status: Acute Code(s): F32.9 - MAJOR DEPRESSIVE DISORDER , SINGLE EPISODE, UNSPECIFIED SNOMED Code(s): 27134675 Comment: - Xanax 3 mg at bedtime (5) Parkinson disease Current Visit: Yes Status: Acute Code(s): G20 - PARKINSON'S DISEASE SNOMED Code(s): 54558264 Comment: - Continue sinemet 25/100 3 tabs tid - Continue amantadine 100 mg bid - Continue entacapone 200mg tid (6) Hyperlipidemia Current Visit: Yes Status: Acute Code(s): E78.5 - HYPERLIPIDEMIA, UNSPECIFIED SNOMED Code(s): 82727968 Comment: - Atorvastatin 20 mg HS (7) Hypertension Current Visit: Yes Status: Acute Code(s): I10 - ESSENTIAL (PRIMARY) HYPERTENSION SNOMED Code(s): 16652972 (8) DVT prophylaxis Current Visit: Yes Status: Acute Code(s): Z29.9 - ENCOUNTER FOR PROPHYLACTIC MEASURES, UNSPECIFIED SNOMED Code(s): 381629764 Comment: - AT present time ambulation - heparin product contraindicated given his ITP, however if needed for any other reason arixtra off label can be utilized.
[2019-05-01] MEDS: Atorvastatin* 20 MG TAB PO SCH (21:48)
[2019-05-01] MEDS: ALPRAZolam TAB* 0.5 MG PO SCH (21:50)
[2019-05-02 06:10] LABS: Hematocrit 39 % (42-52); Hemoglobin 13.4 g/dL (14.0-18.0); Mean Corpuscular HGB Conc 35 g/dL (31-36); Mean Corpuscular Hemoglobin 31 pg (27-31); Mean Corpuscular Volume 90 fL (80-94); Mean Platelet Volume 7.7 fL (7.4-10.4); Platelet Count 98 10^3/uL (150-450); Red Blood Count 4.32 10^6 /uL (4.18-5.48); Red Cell Distribution Width 13 % (10-15); White Blood Count 6.3 10^3/uL (3.5-10.8)
[2019-05-02 06:11] LABS: ABS Eosinophils 0.1 10^3/ul (0-0.6); ABS Neutrophils 4.1 10^3/ul (1.5-7.7); Eosinophil % 1.1 %; Lymphocyte % 16.3 %; Nucleated Red Blood Cells % 0.1
[2019-05-02 06:22] LABS: BUN/Creatinine Ratio 18.8 (8-20); Calcium 8.3 mg/dL (8.6-10.3); EGFR African American 115.3 (>60); EGFR Non-African American 95.3 (>60); Magnesium 1.9 mg/dL (1.9-2.7); Potassium 3.7 mmol/L (3.5-5.0)
--- NOTE | 2019-05-02 08:43 | PN ---
Progress Note - Progress Note Date of Service: 05/02/19 SOAP: Subjective: 73 y/o male s/p TLIF POD #2, he was transferred to [facility] yesterday, he been doing well. Patient reports that his pain has improved, but has some some discomfort around incision. Patient has been getting out of bed to use restroom, but has not walked with PT/OT. He reports having some dizziness with standing. The pain in his back and legs have improved, reports some numbness in the right lateral thigh that is improving. He tolerates orals, has been passing gas, but has not had BM. Overall patient is doing is currently pending OT consult to possible referral to [facility]. Objective: Vital Signs - 12 hr Temp Pulse Resp BP Pulse Ox 05/02/19 07:25 99.4 F 61 16 113/66 96 05/02/19 03:26 98.3 F 76 18 117/68 98 05/02/19 02:01 18 05/01/19 23:51 16 05/01/19 23:46 16 05/01/19 23:23 98.9 F 56 16 105/64 92 05/01/19 21:50 18 05/01/19 21:28 18 05/01/19 21:27 18 General: laying in bed elevated comfortable, at bed side. Neuro: GCS 15, A&O x 3, CN II - XII, UPE motor strength 5/5, LE motor strength 5/5, decrease sensation of lateral thigh with light touch. Abdomen: Soft non tender, BS active in all quadrants Derm: wound C/D/I Assessment: 73 y/o male post TLIF POD # 2, pain control better managed, patient still feel a little unsteady on feet, will possible need some acute rehab. Plan: D/C planning to [facility] Continue to follow platelet continue Continue work with PT/OT Follow Medicine Recommendations Follow Cardiology recommendations Follow Hematology recommendations Give suppository PRN
[2019-05-02] MEDS: oxyCODONE TAB* 5 MG TAB PO PRN ×3 (09:01→22:20)
[2019-05-02] MEDS: oxyCODONE/Acetamin 5/325 MG* TAB PO PRN ×3 (09:01→17:43)
[2019-05-02] MEDS: Carbidopa/Levodop 25/100 MG TAB(*) PO SCH ×3 (09:20→20:31)
[2019-05-02] MEDS: Sotalol TAB* 80 MG PO SCH ×2 (09:20→20:31)
[2019-05-02] MEDS: Amantadine CAP* 100 MG PO SCH ×2 (09:22→20:30)
[2019-05-02] MEDS: Docusate CAP* 100 MG PO SCH ×2 (09:24→20:30)
[2019-05-02] MEDS: CMCS: Entacapone (NF) 200 MG TAB PO SCH ×3 (09:25→20:32)
[2019-05-02] MEDS: Polyethylene Glycol 3350* 17 GM PACKET PO SCH (09:25)
[2019-05-02] MEDS: Losartan TAB* 25 MG PO SCH (09:26)
[2019-05-02] MEDS: COBAMAMIDE PO SCH (09:31)
[2019-05-02] MEDS: CYANOCOBALAMIN PO SCH (09:31)
[2019-05-02] MEDS: Bisacodyl SUPP* 10 MG SUPP PR PRN (12:00)
[2019-05-02] MEDS ORDERED: Potassium Chlor TAB* 10 MEQ TAB.ER PO ONE (18:26)
--- NOTE | 2019-05-02 18:29 | PN ---
Subjective Date of Service: 05/02/19 Interval History: f/u POD 2 spine surgery, CAD/CABG, MV repair, VT, PM/ICD, Pafib sitting up currently no cp or dyspnea Medications Active Medications: Acetaminophen (Tylenol Tab*) 487.5 mg PO Q6H PRN PRN Reason: PAIN Last Admin: 05/01/19 08:43 Dose: 487.5 mg Alprazolam (Xanax Tab*) 3 mg PO BEDTIME [facility] Last Admin: 05/01/19 21:50 Dose: 3 mg Amantadine HCl (Symmetrel Cap*) 100 mg PO BID [facility] Last Admin: 05/02/19 09:22 Dose: 100 mg Atorvastatin Calcium (Lipitor*) 20 mg PO BEDTIME [facility]; Protocol Last Admin: 05/01/19 21:48 Dose: 20 mg Bisacodyl (Dulcolax Supp*) 10 mg [place] DAILY PRN PRN Reason: CONSTIPATION Last Admin: 05/02/19 12:00 Dose: 10 mg Carbidopa/Levodopa (Sinemet 25/100 Tab(*)) 3 tab PO TID [facility] Last Admin: 05/02/19 14:10 Dose: 3 tab Cyclobenzaprine HCl (Flexeril Tab*) 10 mg PO TID PRN PRN Reason: muscle ache Last Admin: 05/01/19 16:47 Dose: 10 mg Docusate Sodium (Colace Cap*) 100 mg PO BID [facility] Last Admin: 05/02/19 09:24 Dose: 100 mg Entacapone (Comtan(Nf)) 200 mg PO TID [facility] Last Admin: 05/02/19 14:10 Dose: 200 mg Losartan Potassium (Cozaar Tab*) 25 mg PO QAM [facility] Last Admin: 05/02/19 09:26 Dose: 25 mg Magnesium Oxide (Magox 400 Tab*) 400 mg PO DAILY [facility] Nft: Cyanocobalamin/Cobamamide [Vitamin B-12 5,000 Mcg Tab Sl] 5,000 Mcg) 5, 000 mcg PO QAM [facility] Last Admin: 05/02/19 09:31 Dose: Not Given Oxycodone HCl (Roxycodone Tab*) 5 mg PO Q4H PRN PRN Reason: PAIN Last Admin: 05/02/19 13:00 Dose: 5 mg Oxycodone/Acetaminophen (Percocet 5/325 Tab*) 1 tab PO Q4H PRN PRN Reason: PAIN Last Admin: 05/02/19 17:43 Dose: 1 tab Pneumococcal Polyvalent Vaccine (Pneumococcal Vac 23-Polyvalent*) 0.5 ml IM .ONCE ONE Stop: 05/03/19 09:01 Polyethylene Glycol/Electrolytes (Miralax*) 17 gm PO DAILY [facility] Last Admin: 05/02/19 09:25 Dose: 17 gm Potassium Chloride (Klor Con Er Tab*) 40 meq PO ONCE ONE Stop: 05/02/19 18:27 Sotalol HCl (Betapace Tab*) 80 mg PO BID [facility] Last Admin: 05/02/19 09:20 Dose: 80 mg Objective Vital Signs: Temp Pulse Resp BP Pulse Ox 97.6 F 80 16 100/57 99 05/02/19 15:18 05/02/19 15:18 05/02/19 17:43 05/02/19 15:18 05/02/19 15:18 Oxygen Devices in Use Now: None Appearance: nad, pleasant Ears/Nose/Mouth/Throat: Clear Oropharnyx Neck: NL Appearance and Movements; NL JVP, Trachea Midline Respiratory: Symmetrical Chest Expansion and Respiratory Effort Cardiovascular: - - RRR, Abdominal: - - soft, not tender Extremities: No Edema Neurological: Alert and Oriented x 3 Laboratory Results: 05/02/19 05:33 05/02/19 05:33 Diagnostic Imaging: Provider: Gurvinder Gutierrez MD DATE OF CARDIAC CATHETERIZATION: 03/23/2016. INDICATION FOR PROCEDURE: Patient with nonsustained ventricular tachycardia with progressive shortness of breath with exertion, asked by Dr. Jerez to perform diagnostic study to rule out the presence of worsening coronary artery disease with history of prior stents in the past involving reportedly the LAD and the right coronary artery with subsequent bypass to the right coronary artery and valve repair of a flail mitral valve leaflet. Left ventriculography could not be performed as the patient virtually had runs of nonsustained ventricular tachycardia and accuracy would be suboptimal. No attempts were made to suppress this with antiarrhythmic therapy given the fact that the plan was for ablation therapy if there was no progression of coronary artery disease. 1. HEMODYNAMIC DATA: Left heart catheterization - ascending aortic pressure was recorded at 97/64 with a mean of 81. Left ventricular pressure 101/left ventricular end-diastolic pressure on normal beats of 14 to 16 mmHg. 2. CORONARY ARTERIOGRAPHY: A. Right coronary artery - totally occluded in its mid segment with diffuse disease seen proximally leading to an 85 percent stenosis prior to an acute marginal branch. There was no antegrade flow to the distal right coronary artery (this was supplied via the vein graft to the right coronary artery). B. Left coronary artery: 1. Left main - widely patent. 2. Left anterior descending artery - there was calcium seen in the proximal portion. The mid stent was seen in the left anterior descending artery. There was mild to moderate in stent restenosis, the degree of narrowing noted to be approximately 30 to 35 percent. The rest of the left anterior descending artery supplied multiple diagonal branches. There was no significant lesion seen. 3. Circumflex artery - a nondominant vessel supplying a thin first obtuse marginal branch followed by a moderate size mid obtuse marginal branch. The moderate size mid obtuse marginal branch appeared to have a proximal/ostial narrowing of 55 to 60 percent in its worst view, appearing less in other views. The continuation of the circumflex supplied two low lying obtuse marginal branches. No significant disease was seen past this point. Vein graft to right coronary artery widely patent with good anastomosis. There was retrograde filling to the posterior left ventricular branch. No significant obstruction was visualized involving the PDA or the posterior left ventricular branch. OVERALL ASSESSMENT: Mild/mild to moderate in stent restenosis in the left anterior descending artery of 35, perhaps approaching 40 percent. No significant narrowing. 55 to 60 percent ostial to proximal narrowing of a moderate size mid obtuse marginal branch. Totally occluded mid right coronary artery with an 85 percent lesion seen just prior to a mid acute marginal branch to the right ventricle. Normal blood flow to the PDA and posterior left ventricular branch via a patent vein graft to the PDA. Normal left ventricular end-diastolic pressure on normal sinus beats with the inability to obtain an accurate left ventriculogram due to ventricular tachycardia, and as such it was not attempted. EKG Data: ekg 04/30/2019 [facility]RIBUTION several platinum beats 04/26/2019 nsr several paced beat small inferior q waves st depression v4-v6 qtc 441 Assessment/Plan Patient s/p elective spine surgery pod 2 1. MV repair 2. CAD s/p CABG/AK - LVEF 50% 3. VT - s/p PM/ICD 4. 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 Given 40 meq k x 1 now (ordered) and mag oxide 400 mg po daily ( ordered) while on sotalol at very least should be on aspirin now that platelets are stable but with post- operative status this can be deferred to Dr. Gallegos as an outpatient Thank you for allowing me to participate in the cardiovascular care of this patient. Please do not hesitate to contact me with questions or concerns.
--- NOTE | 2019-05-02 18:32 | PN ---
Subjective Date of Service: 05/02/19 Interval History: seen late afternoon, sitting up in chair. participated in PT. No acute distress. Plt 98. no active bleed Past Medical History: Unchanged from Admission Objective Active Medications: Acetaminophen (Tylenol Tab*) 487.5 mg PO Q6H PRN PRN Reason: PAIN Last Admin: 05/01/19 08:43 Dose: 487.5 mg Alprazolam (Xanax Tab*) 3 mg PO BEDTIME [facility] Last Admin: 05/01/19 21:50 Dose: 3 mg Amantadine HCl (Symmetrel Cap*) 100 mg PO BID [facility] Last Admin: 05/02/19 09:22 Dose: 100 mg Atorvastatin Calcium (Lipitor*) 20 mg PO BEDTIME [facility]; Protocol Last Admin: 05/01/19 21:48 Dose: 20 mg Bisacodyl (Dulcolax Supp*) 10 mg [place] DAILY PRN PRN Reason: CONSTIPATION Last Admin: 05/02/19 12:00 Dose: 10 mg Carbidopa/Levodopa (Sinemet 25/100 Tab(*)) 3 tab PO TID [facility] Last Admin: 05/02/19 14:10 Dose: 3 tab Cyclobenzaprine HCl (Flexeril Tab*) 10 mg PO TID PRN PRN Reason: muscle ache Last Admin: 05/01/19 16:47 Dose: 10 mg Docusate Sodium (Colace Cap*) 100 mg PO BID [facility] Last Admin: 05/02/19 09:24 Dose: 100 mg Entacapone (Comtan(Nf)) 200 mg PO TID [facility] Last Admin: 05/02/19 14:10 Dose: 200 mg Losartan Potassium (Cozaar Tab*) 25 mg PO QAM [facility] Last Admin: 05/02/19 09:26 Dose: 25 mg Magnesium Oxide (Magox 400 Tab*) 400 mg PO DAILY [facility] Nft: Cyanocobalamin/Cobamamide [Vitamin B-12 5,000 Mcg Tab Sl] 5,000 Mcg) 5, 000 mcg PO QAM [facility] Last Admin: 05/02/19 09:31 Dose: Not Given Oxycodone HCl (Roxycodone Tab*) 5 mg PO Q4H PRN PRN Reason: PAIN Last Admin: 05/02/19 13:00 Dose: 5 mg Oxycodone/Acetaminophen (Percocet 5/325 Tab*) 1 tab PO Q4H PRN PRN Reason: PAIN Last Admin: 05/02/19 17:43 Dose: 1 tab Pneumococcal Polyvalent Vaccine (Pneumococcal Vac 23-Polyvalent*) 0.5 ml IM .ONCE ONE Stop: 05/03/19 09:01 Polyethylene Glycol/Electrolytes (Miralax*) 17 gm PO DAILY [facility] Last Admin: 05/02/19 09:25 Dose: 17 gm Sotalol HCl (Betapace Tab*) 80 mg PO BID [facility] Last Admin: 05/02/19 09:20 Dose: 80 mg Vital Signs - 8 hr 05/02/19 05/02/19 05/02/19 11:00 11:30 12:58 Temperature 98.2 F Pulse Rate 73 Respiratory 12 16 14 Rate Blood Pressure 101/52 (mmHg) O2 Sat by Pulse 96 Oximetry 05/02/19 05/02/19 05/02/19 13:00 14:40 15:18 Temperature 97.6 F Pulse Rate 80 Respiratory 14 16 16 Rate Blood Pressure 100/57 (mmHg) O2 Sat by Pulse 99 Oximetry 05/02/19 17:43 Temperature Pulse Rate Respiratory 16 Rate Blood Pressure (mmHg) O2 Sat by Pulse Oximetry Oxygen Devices in Use Now: None Appearance: resting in chair no distress Eyes: No Scleral Icterus Ears/Nose/Mouth/Throat: Mucous Membranes Moist Neck: NL Appearance and Movements; NL JVP, Trachea Midline Respiratory: Symmetrical Chest Expansion and Respiratory Effort Neurological: Alert and Oriented x 3 Result Diagrams: 05/03/19 05:48 05/03/19 05:48 Microbiology and Other Data: Microbiology 04/30/19 17:09 Nasal Screen MRSA (PCR) - Final Nasal Mrsa Not Detected Assess/Plan/Problems-Billing Assessment: 73 y/o male admitted for TLIF of L3/L4, L4/L5 POD # 1 history of ITP, Parkinson , Afib, CAD we were to follow and comanage his parkinsons along with his Hematology for ITP and CAD/Afib with Cardiology - Patient Problems (1) Lumbar stenosis Current Visit: Yes Status: Acute Code(s): M48.061 - SPINAL STENOSIS, LUMBAR REGION WITHOUT NEUROGENIC YEN SNOMED Code(s): 31516122 Comment: - s/p TLIF of L3/L4, L4/L5 POD # 2 - Pain and activity as per neurosurgery (2) History of ITP Current Visit: Yes Status: Acute Code(s): Z86.2 - PRSNL HISTORY OF DIS OF THE BLD/BLD-FORM ORG/IMMUN [facility] SNOMED Code(s): 036416594 Comment: - Hematology on board. Plt 98 05/02/19. - CBC daily and treatment with IVIG if platelet drops (3) Afib Current Visit: Yes Status: Acute Code(s): I48.91 - UNSPECIFIED ATRIAL FIBRILLATION SNOMED Code(s): 35217223 Comment: - Cardiology on board - s/p PPM/ICD. Continue sotalol 80 mg po bid and ARB losartan 25 mg daily - f/u BMP and lytes (4) Depression Current Visit: Yes Status: Acute Code(s): F32.9 - MAJOR DEPRESSIVE DISORDER , SINGLE EPISODE, UNSPECIFIED SNOMED Code(s): 28370711 Comment: - Xanax 3 mg at bedtime (5) Parkinson disease Current Visit: Yes Status: Acute Code(s): G20 - PARKINSON'S DISEASE SNOMED Code(s): 69162851 Comment: - Continue sinemet 25/100 3 tabs tid - Continue amantadine 100 mg bid - Continue entacapone 200mg tid (6) Hyperlipidemia Current Visit: Yes Status: Acute Code(s): E78.5 - HYPERLIPIDEMIA, UNSPECIFIED SNOMED Code(s): 63006512 Comment: - Atorvastatin 20 mg HS (7) Hypertension Current Visit: Yes Status: Acute Code(s): I10 - ESSENTIAL (PRIMARY) HYPERTENSION SNOMED Code(s): 93107014 (8) DVT prophylaxis Current Visit: Yes Status: Acute Code(s): Z29.9 - ENCOUNTER FOR PROPHYLACTIC MEASURES, UNSPECIFIED SNOMED Code(s): 083564962 Comment: - AT present time ambulation - heparin product contraindicated given his ITP, however if needed for any other reason arixtra off label can be utilized. Status and Disposition: Patient is medically stable, discharge plan as per neurosurgery. Will follow up prn
[2019-05-02] MEDS: Atorvastatin* 20 MG TAB PO SCH (20:29)
[2019-05-02] MEDS: Magnesium Oxide TAB* 400 MG PO SCH (20:31)
[2019-05-02] MEDS: ALPRAZolam TAB* 0.5 MG PO SCH (22:20)
[2019-05-03 05:54] LABS: ABS Eosinophils 0.1 10^3/ul (0-0.6); ABS Monocytes 0.9 10^3/ul (0-0.8); ABS Neutrophils 3.1 10^3/ul (1.5-7.7); Eosinophil % 1.8 %; Hematocrit 39 % (42-52); Hemoglobin 13.3 g/dL (14.0-18.0); Lymphocyte % 19.1 %; Mean Corpuscular HGB Conc 34 g/dL (31-36); Mean Corpuscular Hemoglobin 31 pg (27-31); Mean Corpuscular Volume 90 fL (80-94); Mean Platelet Volume 7.4 fL (7.4-10.4); Nucleated Red Blood Cells % 0.2; Platelet Count 107 10^3/uL (150-450); Red Blood Count 4.28 10^6 /uL (4.18-5.48); Red Cell Distribution Width 13 % (10-15); White Blood Count 5.1 10^3/uL (3.5-10.8)
[2019-05-03 06:11] LABS: BUN/Creatinine Ratio 17.1 (8-20); Calcium 9.1 mg/dL (8.6-10.3); EGFR African American 112.1 (>60); EGFR Non-African American 92.6 (>60); Magnesium 1.9 mg/dL (1.9-2.7); Phosphorus 2.8 mg/dL (2.5-5.0); Potassium 3.9 mmol/L (3.5-5.0)
[2019-05-03] MEDS: oxyCODONE/Acetamin 5/325 MG* TAB PO PRN ×2 (06:26→11:20)
[2019-05-03] MEDS: Polyethylene Glycol 3350* 17 GM PACKET PO SCH (08:48)
[2019-05-03] MEDS: Losartan TAB* 25 MG PO SCH (08:49)
[2019-05-03] MEDS: Magnesium Oxide TAB* 400 MG PO SCH (08:49)
[2019-05-03] MEDS: Carbidopa/Levodop 25/100 MG TAB(*) PO SCH (08:49)
[2019-05-03] MEDS: Amantadine CAP* 100 MG PO SCH (08:49)
[2019-05-03] MEDS: Docusate CAP* 100 MG PO SCH (08:50)
[2019-05-03] MEDS: Sotalol TAB* 80 MG PO SCH (08:50)
[2019-05-03] MEDS: CMCS: Entacapone (NF) 200 MG TAB PO SCH (08:51)
[2019-05-03] MEDS ORDERED: Pneumococcal *Vac Polyvalent 0.5 ML VIAL IM ONE (09:00)
[2019-05-03] MEDS: COBAMAMIDE PO SCH (09:12)
[2019-05-03] MEDS: CYANOCOBALAMIN PO SCH (09:12)
[2019-05-03] MEDS: Bisacodyl SUPP* 10 MG SUPP PR PRN (10:44)
[2019-05-03 11:19] VITALS: BP 125/73
[2019-05-03] MEDS ORDERED: Mineral Oil ENEMA* 1 BOTTLE PR ONE (11:20)
--- NOTE | 2019-05-04 00:46 | PN ---
Progress Note - Progress Note Date of Service: 05/03/19 SOAP: Subjective: []Delayed entry. Patient seen earlier in am in [facility]. No events ON. Tolerates PO well, Voids, Ambulates. Postop pain well controlled Objective: []VSS, Afebrile Wound s,c,d AAOx3, ROMY, CN II-XII grossly intact Motor 5/5 Sensory grossly intact to light touch Assessment: []73 yom Left L3-4 TLIF with revision of hardware, ITP Plan: []Monitor VS, Neurochecks Transfer to PMRU today. Monitor PLT Full instructions were given Appreciate IM, Oncology, PMRU care Ree Maya MD
--- NOTE | 2019-05-05 23:18 | DS ---
DISCHARGE SUMMARY: DATE OF ADMISSION: 04/30/19 DATE OF DISCHARGE: 05/03/19 Diagnosis on Discharge: Lumbar Spondylolisthesis ATTENDING PROVIDER: Dr. Maya * (DICTATED BY JULIO CESAR RAMIREZ) DISPOSITION ON DISCHARGE: Good. PLACE OF DISCHARGE: [facility]. HOSPITAL COURSE: This is a pleasant 73-year-old gentleman with multiple medical comorbidities including Parkinson's disease, heart disease, ITP, who has history of L4-5 post lateral fusion with pedicle screws and decompression with Dr. Hanna in 2010. This patient returned with complaints of back pain radiating to both lower extremities left worse than right. 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 After failing conservative treatment modalities, he was offered the option of surgical intervention in the form of revision of L4-5 with instrumentation and fusion and a left L3-L4 TLIF. The patient tolerated the procedure well and transferred to short-stay unit where he was under observation. He did well, but was unsteady with standing and walking. Physical Therapy and Occupational Therapy were consulted to work with him. It was recommended that he be discharged to the [facility] so he can continue therapy. Upon discharge, the patient was given discharge instructions, which included no heavy lifting, bending, twisting. His physical activity would be directed by the staff in the [facility] facility. The patient was also given a brace , which he was previously fitted for to wear anytime he standing upright. The patient will follow up with Neurosurgery [facility] in 1 week. It has been a pleasure to care for this patient. JULIO CESAR RAMIREZ [id number]/[facility] #: [id number] MTDD
== END 2019-05-03 13:30 | DRG 460 ==
LOC: AA 05:51 → ICU 17:02 → SSU 05-01 09:40
PROVIDERS: ADMIT Neurological Surgery; ATTEND Neurological Surgery
PROC: 0QP004Z Removal of Internal Fixation Device from Lumbar Vertebra, Open Approach (ICD-10-PCS; 2019-04-30)
PROC: 07DR3ZZ Extraction of Iliac Bone Marrow, Percutaneous Approach (ICD-10-PCS; 2019-04-30)
PROC: 0SG00AJ Fusion of Lumbar Vertebral Joint with Interbody Fusion Device, Posterior Approach, Anterior Column, Open Approach (ICD-10-PCS; principal; 2019-04-30 07:30)
DX: M48.062 Spinal stenosis, lumbar region with neurogenic claudication (principal); D69.3 Immune thrombocytopenic purpura; I47.2 Ventricular tachycardia; I50.32 Chronic diastolic (congestive) heart failure; I11.0 Hypertensive heart disease with heart failure; G20 Parkinson's disease; I48.0 Paroxysmal atrial fibrillation; D69.59 Other secondary thrombocytopenia; M51.36 Other intervertebral disc degeneration, lumbar region; I25.10 Atherosclerotic heart disease of native coronary artery without angina pectoris; F32.9 Major depressive disorder, single episode, unspecified; N40.1 Benign prostatic hyperplasia with lower urinary tract symptoms; R35.0 Frequency of micturition; E78.5 Hyperlipidemia, unspecified; Z95.1 Presence of aortocoronary bypass graft; Z95.810 Presence of automatic (implantable) cardiac defibrillator; I25.2 Old myocardial infarction; Z79.899 Other long term (current) drug therapy; Z79.1 Long term (current) use of non-steroidal anti-inflammatories (NSAID); Z88.8 Allergy status to other drugs, medicaments and biological substances; Z83.3 Family history of diabetes mellitus; Z82.49 Family history of ischemic heart disease and other diseases of the circulatory system; Z80.1 Family history of malignant neoplasm of trachea, bronchus and lung
CPT/HCPCS: 36415; 72100; 76000; 80048; 83735; 84100; 85025; 85027; 87641; 88300; 90732; 93005; 99232; A9270-GY; C1713; C9359; G8978-GP-CK; G8979-GP-CI; G8987-GO-CL; G8988-GO-CI; J0330; J0690; J1100; J1170; J1240; J2001; J2250; J2405; J2704; J3010; J3475

== ENCOUNTER 2019-05-03 09:32 | Inpatient (IN) | payer MEDICARE, BC ==
[2019-05-03] MEDS ORDERED: Al Hydrox/Mg Hydrox/Simet LIQ* 30 ML UDC PO PRN (11:15)
[2019-05-03] MEDS ORDERED: Bisacodyl SUPP* 10 MG SUPP PR PRN (11:15)
[2019-05-03] MEDS ORDERED: Mineral Oil ENEMA* 1 BOTTLE PR ONE (11:24)
[2019-05-03] MEDS: Carbidopa/Levodop 25/100 MG TAB(*) PO SCH ×2 (14:19→21:33)
[2019-05-03] MEDS: ENTACAPONE 200 MG PO SCH ×2 (14:20→21:33)
--- NOTE | 2019-05-03 14:25 | HP ---
CC: Dr. Whitfield; Dr. Gallegos; Dr. Maya; Dr. Jerez * REHABILITATION ADMISSION: DATE OF ADMISSION: 05/03/19 PRIMARY CARE PROVIDER: Dr. Gallegos. NEUROLOGIST: Dr. Whitfield. NEUROSURGEON: Dr. Maya. BENCH MOLDER: Dr. Jerez at [place]. REASON FOR ADMISSION: Status post L3-4 TLIF with revision of prior L4-5 fusion with PEEK and Parkinson disease. HISTORY OF PRESENT ILLNESS: This is a 73-year-old man with Parkinson disease, who over the course of the last year, had noticed increasing difficulty with walking. He developed numbness within his left leg and seemed weaker. He could no longer stand up straight. On followup with his neurologist, an MRI of the lumbar spine revealed that he had stenosis above the level of prior fusion at L4 -5 that he had had in 2009. At that point also, he had left leg numbness as well. CT lumbar spine without contrast was completed on 01/05/19 and showed severe narrowing of the central canal at L3-4 and mild narrowing at L2-3. He is known to have immune thrombocytopenia and therefore some preoperative planning with the help of Hematology/Oncology was necessary. Initially, he was given steroids, but his platelets did not respond to that. Then he received a series of doses of IVIG with good response. He was admitted on 04/30/[address] Maya for L3-4 TLIF with revision of prior L4-5 fusion with PEEK expandable interbody cage and left iliac crest bone graft. Postoperatively, he has been seen by Dr. Araya in Cardiology due to his history of paroxysmal atrial fibrillation, ventricular tachycardia, congestive heart failure, coronary artery disease status post CABG, mitral valve replacement, as well as management of his pacemaker and ICD that was placed in 2016. He has remained on his regular medications. He has been allowed to mobilize out of bed, using a brace. The patient notes that he has had some new right lateral thigh numbness since surgery. He still has numbness in his left foot but he feels like he is able to stand easier. He does have back pain that has been treated with narcotic pain medications and Tylenol. In this immediate postoperative period, he has not been on any DVT prophylaxis due to his history of ITP. Dr. Conroy today advises that he can use subcutaneous heparin for DVT prophylaxis as his platelets have been stable and today are 107. He has also been treated for hypomagnesemia with IV and oral replacement. He has also received some potassium replacement. Yesterday, he was dizzy while standing. Prior to admission, he was independent using a cane or walking stick as well as independent with ADLs. With physical therapy, he has required minimal assistance for bed mobility, minimal assist for transfers using a rolling walker and has been able to ambulate with contact guard assistance and cues using a rolling walker. With occupational therapy, he has required a maximum amount of assistance x2 for dressing and toileting. Bathing has not been tested. He has been constipated since admission. This was also a problem prior to his admission secondary to his Parkinson disease and he routinely used mineral oil with prune juice orally as well as MiraLAX and a variety of other laxatives. PAST MEDICAL HISTORY: 1. Parkinson disease. 2. Coronary artery disease status post coronary artery bypass graft surgery. 3. Status post mitral valve replacement with CABG and MVR, complicated by FIDEL thrombus. 4. Immune thrombocytopenia. 5. Lumbar stenosis status post L4-5 decompression and fusion in 2009 and L3-4 TLIF with revision of L4-5 on 04/30/19. See history of present illness. 6. Paroxysmal atrial fibrillation status post ablation. 7. History of ventricular tachycardia, status post pacemaker placement and ICD in 2016, followed at [place] by Dr. Jerez. 8. Depression. 9. History of congestive heart failure with ejection fraction 50%. 10. Hypertension. 11. Hyperlipidemia. 12. Status post bilateral hernia repair. 13. History of left toe and right foot fusions. 14. Anxiety. MEDICATIONS: 1. Sotalol 80 mg b.i.d. 2. Colace 100 mg b.i.d. 3. Entacapone 200 mg t.i.d. 4. Cozaar 25 mg q.a.m. which is substitution for irbesartan 75 mg daily. 5. Cyanocobalamin 5000 mcg q.a.m. 6. Lipitor 20 mg q.h.s. which is auto-sub for his home Crestor of 10 mg daily. 7. Magnesium oxide 400 mg daily. 8. MiraLAX 17 g daily. 9. Sinemet 25/100 three tablets t.i.d. 10. Amantadine 100 mg b.i.d. 11. Xanax 3 mg q.h.s. 12. Dulcolax suppository p.r.n. 13. Flexeril 10 mg t.i.d. p.r.n. muscle spasm. 14. Percocet 1 tablet q.4 hours p.r.n. pain. 15. Roxicodone 5 mg q.4 hours p.r.n. pain. 16. Tylenol 500mg p.o. q.6 hours p.r.n. pain. ALLERGIES: No known drug allergies. FAMILY HISTORY: Father, coronary artery disease. Mother, hypertension. Sister , diabetes mellitus. Sister, lung cancer. SOCIAL HISTORY: He lives with his female partner, Sada, who is also his healthcare proxy. Her phone number is [phone]. No smoking. He has occasional alcohol. Their home has no steps to enter. There are 3 levels but he plans to come in at the front of the home and then ascend 9 steps to the upstairs bedroom, where there is a bathroom and living space. Leticia is available to assist him after discharge as well as multiple friends. REVIEW OF SYSTEMS: See history of present illness and past medical history. He has not had a bowel movement since surgery. Remainder of the 13-system review is completed. No significant findings. PHYSICAL EXAMINATION GENERAL: Well-developed, well-nourished, appearing stated age. MENTAL STATUS: No acute distress. Alert and appropriate. VITAL SIGNS: Temperature 97.9, heart rate 84, oxygenation 99%, blood pressure 113/70, respirations 18. HEENT: Normocephalic, atraumatic. Oropharynx is clear. Moist mucous membranes. LUNGS: Clear to auscultation bilaterally. HEART: Currently regular rate and rhythm. ABDOMEN: Active bowel sounds. Soft, nontender, nondistended. EXTREMITIES: No clubbing, cyanosis, or edema. NEUROLOGIC EXAM: Cranial nerves II through XII are intact. He has slight masked facies. Motor exam shows 5/5 strength in bilateral upper and lower extremities with some mild pain limitations in the lower extremities. He has decreased sensation throughout his left foot as well as in his right great toe secondary to his toe and foot surgery. There is also a patch at the right lateral thigh that is also numb. Sensation is intact in bilateral upper extremities. At this time, I do not appreciate any cogwheeling or rigidity. MUSCULOSKELETAL EXAM: He has functional range of motion in all of his major joints except for those that have been fused in his feet. DIAGNOSTIC STUDIES/LAB DATA: Today, his magnesium is 1.9, potassium 3.9. White blood cells 5.1; hemoglobin 13.9; hematocrit 39; platelets 107, up from 98 yesterday. IMPRESSION: A 73-year-old man with Parkinson disease status post L3-4 TLIF with revision of prior L4-5 fusion, including left iliac crest bone graft. He will be admitted to [facility], so he can return to independent living with family support. PLAN: 1. Status post lumbar fusion. He will continue using the lumbar support when he is out of bed. His pain will be controlled. He is to follow up with Dr. Maya in 1 week. 2. DVT prophylaxis. I discussed this with Dr. Conroy as well as Dr. Maya. Hematology/Oncology feels that it is okay for him to have DVT prophylaxis at this point as long as his platelets are greater than 50,000. Neurosurgery prefers his platelets to be kept above 75,000 for at least 7 days postoperatively. He will be started on heparin 5000 units q.12 hours. We will also use SCD and TEDs. Daily CBC. 3. Immune thrombocytopenia. He will have daily CBCs to follow his platelet count. If his platelets dip below 75,000, consult with Hematology/Oncology on additional IVIG and consider discontinuation of heparin. 4. History of paroxysmal atrial fibrillation, ventricular tachycardia, coronary artery disease, mitral valve replacement, congestive heart failure. He has a pacemaker and ICD. Continue with current medications. He is to follow up with his [employer] advisor after discharge. Cardiology here has suggested considering starting aspirin as an outpatient since his platelets have been relatively stable. This is deferred to his outpatient providers. 5. Parkinson disease. Continue with his current medications. 6. Constipation. I will order a mineral oil enema and continue with scheduled bowel medications. Also, I will order mineral oil orally daily as he uses this routinely at home. 7. Anxiety. Continue with Xanax at bedtime. 8. Impaired mobility. He will be seen by Physical Therapy for bed mobility, transfer, gait, and stair training using a rolling walker with least restrictive assistive device. 9. Impaired self-care. He will be seen by Occupational Therapy for ADL training and equipment evaluation. This will include management of the brace. 10. Advance directives. He is a full code. His female partner, Leticia, is his healthcare proxy. Her phone number is [phone]. ESTIMATED LENGTH OF STAY: 5 to 7 days, then return to home with family support. Family training as appropriate. [id number]/CPS #: [id number] KEIKO
[2019-05-03] MEDS: oxyCODONE/Acetamin 5/325 MG* TAB PO PRN ×2 (16:01→22:30)
[2019-05-03] MEDS: Heparin VIAL(*) 5000 UNITS/ML VIAL (FIVE THOUSAND) SUBCUT SCH (19:49)
[2019-05-03] MEDS: oxyCODONE TAB* 5 MG TAB PO PRN (19:51)
[2019-05-03] MEDS: Senna TAB PO SCH (21:32)
[2019-05-03] MEDS: Docusate CAP* 100 MG PO SCH (21:32)
[2019-05-03] MEDS: Atorvastatin* 20 MG TAB PO SCH (21:32)
[2019-05-03] MEDS: Sotalol TAB* 80 MG PO SCH (21:32)
[2019-05-03] MEDS: Amantadine CAP* 100 MG PO SCH (21:32)
[2019-05-03] MEDS: ALPRAZolam TAB* 0.5 MG PO SCH (22:26)
[2019-05-04] MEDS: oxyCODONE TAB* 5 MG TAB PO PRN ×3 (02:43→16:45)
[2019-05-04 05:22] LABS: ABS Eosinophils 0.1 10^3/ul (0-0.6); ABS Monocytes 0.9 10^3/ul (0-0.8); ABS Neutrophils 2.9 10^3/ul (1.5-7.7); Eosinophil % 1.9 %; Hematocrit 38 % (42-52); Hemoglobin 13.1 g/dL (14.0-18.0); Lymphocyte % 20.5 %; Mean Corpuscular HGB Conc 34 g/dL (31-36); Mean Corpuscular Hemoglobin 31 pg (27-31); Mean Corpuscular Volume 90 fL (80-94); Mean Platelet Volume 7.7 fL (7.4-10.4); Nucleated Red Blood Cells % 0.1; Platelet Count 132 10^3/uL (150-450); Red Blood Count 4.23 10^6 /uL (4.18-5.48); Red Cell Distribution Width 13 % (10-15); White Blood Count 4.8 10^3/uL (3.5-10.8)
[2019-05-04] MEDS: oxyCODONE/Acetamin 5/325 MG* TAB PO PRN ×3 (05:36→21:11)
[2019-05-04 05:38] LABS: Albumin/Globulin Ratio 0.8 (1-3); BUN/Creatinine Ratio 15.7 (8-20); Calcium 8.6 mg/dL (8.6-10.3); EGFR Non-African American 84.3 (>60); Globulin 3.9 g/dL (2-4); Potassium 4.1 mmol/L (3.5-5.0); Total Bilirubin 0.6 mg/dL (0.2-1.0); Total Protein 6.9 g/dL (6.4-8.9)
[2019-05-04] MEDS: Carbidopa/Levodop 25/100 MG TAB(*) PO SCH ×3 (08:40→21:01)
[2019-05-04] MEDS: Magnesium Oxide TAB* 400 MG PO SCH (08:42)
[2019-05-04] MEDS: Losartan TAB* 25 MG PO SCH (08:42)
[2019-05-04] MEDS: Amantadine CAP* 100 MG PO SCH ×2 (08:42→20:59)
[2019-05-04] MEDS: Docusate CAP* 100 MG PO SCH ×2 (08:43→21:00)
[2019-05-04] MEDS: ENTACAPONE 200 MG PO SCH ×3 (08:43→21:00)
[2019-05-04] MEDS: Heparin VIAL(*) 5000 UNITS/ML VIAL (FIVE THOUSAND) SUBCUT SCH ×2 (08:45→20:59)
[2019-05-04] MEDS: Polyethylene Glycol 3350* 17 GM PACKET PO SCH (08:46)
[2019-05-04] MEDS: Mineral Oil, LAXITIVE* 30 ML UDC PO SCH (08:46)
[2019-05-04] MEDS: Sotalol TAB* 80 MG PO SCH ×2 (08:46→21:01)
[2019-05-04] MEDS: Cyanocobalamin TAB* 500 MCG PO SCH (08:50)
--- NOTE | 2019-05-04 18:02 | PN ---
Progress Note Date of Service: 05/04/19 Note: MARISOL NOLAN JR was visited. Therapy notes read and reviewed. We had a long talk about subcutaneous heparin and DVT prevention as well as his current labs. He has been refusing the subcutaneous heparin as he is very worried about his platelets and risk of bleeding. He has told me that he will continue to refuse heparin, and use TEDs and SCDs. He otherwise is ok. Current Medications: Active Medications Generic Name Dose Route Start Last Admin Trade Name Freq PRN Reason Stop Dose Admin Acetaminophen 650 mg 05/03/19 11:15 Tylenol Tab* PO Q6H PRN FEVER > 101 Al Hydrox/Mg Hydrox/Simethicone 30 ml 05/03/19 11:15 05/03/19 17:51 Maalox Plus* PO 30 ml Q6H PRN Administration INDIGESTION Alprazolam 3 mg 05/03/19 21:00 05/03/19 22:26 Xanax Tab* PO 3 mg BEDTIME EMILEE Administration Amantadine HCl 100 mg 05/03/19 21:00 05/04/19 08:42 Symmetrel Cap* PO 100 mg BID EMILEE Administration Atorvastatin Calcium 20 mg 05/03/19 21:00 05/03/19 21:32 Lipitor* PO 20 mg 2100 EMILEE Administration Bisacodyl 10 mg 05/03/19 11:15 Dulcolax Supp* [place] DAILY PRN CONSTIPATION Carbidopa/Levodopa 3 tab 05/03/19 14:00 05/04/19 13:25 Sinemet 25/100 Tab(*) PO 3 tab TID EMILEE Administration Cyanocobalamin 5,000 mcg 05/04/19 09:00 05/04/19 08:50 Vitamin B12 Tab* PO Not Given DAILY EMILEE Docusate Sodium 100 mg 05/03/19 21:00 05/04/19 08:43 Colace Cap* PO 100 mg BID EMILEE Administration Entacapone 200 mg 05/03/19 14:00 05/04/19 13:25 Comtan(Nf) PO 200 mg TID EMILEE Administration Heparin Sodium (Porcine) 5,000 units 05/03/19 21:00 05/04/19 08:45 Heparin Vial(*) SUBCUT Not Given Q12HR EMILEE Lactulose 30 ml 05/03/19 11:15 Lactulose* PO Q6H PRN CONSTIPATION Losartan Potassium 25 mg 05/04/19 09:00 05/04/19 08:42 Cozaar Tab* PO 25 mg DAILY EMILEE Administration Magnesium Hydroxide 30 ml 05/03/19 11:15 Milk Of Magnesia Liq* PO Q6H PRN CONSTIPATION Magnesium Oxide 400 mg 05/04/19 09:00 05/04/19 08:42 Magox 400 Tab* PO 400 mg DAILY EMILEE Administration Methocarbamol 750 mg 05/03/19 11:34 Robaxin Tab* PO TID PRN muscle spasm Mineral Oil 30 ml 05/04/19 09:00 05/04/19 08:46 Mineral Oil* PO Not Given DAILY EMILEE Oxycodone HCl 5 mg 05/03/19 11:34 05/04/19 16:45 Roxycodone Tab* PO 5 mg Q4H PRN Administration PAIN Oxycodone/Acetaminophen 1 tab 05/03/19 11:34 05/04/19 13:25 Percocet 5/325 Tab* PO 1 tab Q4H PRN Administration PAIN Polyethylene Glycol/Electrolytes 17 gm 05/04/19 09:00 05/04/19 08:46 Miralax* PO 17 gm DAILY EMILEE Administration Senna 2 tab 05/03/19 21:00 05/03/19 21:32 Senokot Tab* PO 2 tab BEDTIME EMILEE Administration Sotalol HCl 80 mg 05/03/19 21:00 05/04/19 08:46 Betapace Tab* PO 80 mg BID EMILEE Administration Vital Signs: Vital Signs Temp Pulse Resp BP Pulse Ox 97.8 F 67 18 107/66 97 05/04/19 15:26 05/04/19 15:26 05/04/19 16:45 05/04/19 15:26 05/04/19 15:26 Lab Results: Laboratory Results - last 24 hr 05/04/19 05/04/19 05:16 05:16 WBC 4.8 RBC 4.23 Hgb 13.1 L Hct 38 L MCV 90 MCH 31 MCHC 34 RDW 13 Plt Count 132 L MPV 7.7 Neut % (Auto) 59.0 Lymph % (Auto) 20.5 [place] % (Auto) 17.9 Eos % (Auto) 1.9 Baso % (Auto) 0.7 Absolute Neuts (auto) 2.9 Absolute Lymphs (auto) 1.0 Absolute Monos (auto) 0.9 H Absolute Eos (auto) 0.1 Absolute Basos (auto) 0.0 Absolute Nucleated RBC 0.0 Nucleated RBC % 0.1 Sodium 133 L Potassium 4.1 Chloride 101 Carbon Dioxide 30 Anion Gap 2 BUN 14 Creatinine 0.89 Est GFR ( Amer) 102.0 Est GFR (Non-Af Amer) 84.3 BUN/Creatinine Ratio 15.7 Glucose 139 H Calcium 8.6 Total Bilirubin 0.60 AST 17 ALT 3 L Alkaline Phosphatase 56 Total Protein 6.9 Albumin 3.0 L Globulin 3.9 Albumin/Globulin Ratio 0.8 L Exam: HEENT: EOMI LUNGS: Clear bilaterally HEART: Regular rhythm ABDOMEN: Soft +BS EXTREMITIES: Slightly increased tone NEUROLOGIC: Snesation intact. Muscle strength 4+/5 Assessment/Plan: 1. Lumbar Spinal Stenosis, S/P L3/4 TLIF with revision of L4/5 fusion with PEEK: PT/OT. Brace when OOB 2. Parkinson's Disease: Comtan/Sinemet/Amantadine 3. History of A Fib, S/P ablation: Betapace 4. History of ICD: stable 5. DVT Prophylaxis: SCDs and TEDs. He is refusing Heparin 6. Advanced Directives: Full code 7. Anxiety: Xanx 8. ITP: Platelets 132 K today 05/04/19 18:05 05/04/19 18:07 05/04/19 18:07
[2019-05-04] MEDS: Atorvastatin* 20 MG TAB PO SCH (21:00)
[2019-05-04] MEDS: Senna TAB PO SCH (21:00)
[2019-05-04] MEDS: ALPRAZolam TAB* 0.5 MG PO SCH (22:09)
[2019-05-05] MEDS: oxyCODONE TAB* 5 MG TAB PO PRN (00:33)
[2019-05-05 07:47] LABS: ABS Eosinophils 0.1 10^3/ul (0-0.6); ABS Lymphocytes 0.9 10^3/ul (1.0-4.8); ABS Monocytes 0.8 10^3/ul (0-0.8); ABS Neutrophils 2.1 10^3/ul (1.5-7.7); Eosinophil % 3.5 %; Hematocrit 38 % (42-52); Hemoglobin 13.6 g/dL (14.0-18.0); Lymphocyte % 23.3 %; Mean Corpuscular HGB Conc 36 g/dL (31-36); Mean Corpuscular Hemoglobin 32 pg (27-31); Mean Corpuscular Volume 90 fL (80-94); Mean Platelet Volume 7.4 fL (7.4-10.4); Platelet Count 142 10^3/uL (150-450); Red Blood Count 4.24 10^6 /uL (4.18-5.48); Red Cell Distribution Width 13 % (10-15); White Blood Count 3.9 10^3/uL (3.5-10.8)
[2019-05-05] MEDS: oxyCODONE/Acetamin 5/325 MG* TAB PO PRN ×4 (09:00→20:56)
[2019-05-05] MEDS: Carbidopa/Levodop 25/100 MG TAB(*) PO SCH ×3 (09:01→20:58)
[2019-05-05] MEDS: Amantadine CAP* 100 MG PO SCH ×2 (09:01→20:57)
[2019-05-05] MEDS: Docusate CAP* 100 MG PO SCH ×2 (09:02→21:00)
[2019-05-05] MEDS: Magnesium Oxide TAB* 400 MG PO SCH (09:02)
[2019-05-05] MEDS: ENTACAPONE 200 MG PO SCH ×3 (09:02→20:57)
[2019-05-05] MEDS: Losartan TAB* 25 MG PO SCH (09:02)
[2019-05-05] MEDS: Polyethylene Glycol 3350* 17 GM PACKET PO SCH (09:03)
[2019-05-05] MEDS: Sotalol TAB* 80 MG PO SCH ×2 (09:03→21:54)
[2019-05-05] MEDS: Heparin VIAL(*) 5000 UNITS/ML VIAL (FIVE THOUSAND) SUBCUT SCH ×2 (09:08→20:59)
[2019-05-05] MEDS: Cyanocobalamin TAB* 500 MCG PO SCH (09:08)
[2019-05-05] MEDS: Acetaminophen TAB* 325 MG PO PRN (10:50)
[2019-05-05] MEDS: Mineral Oil, LAXITIVE* 30 ML UDC PO SCH (11:03)
--- NOTE | 2019-05-05 11:55 | PN ---
Progress Note Date of Service: 05/05/19 Note: MARISOL Diaz AN HATCH was visited. Therapy notes read and reviewed. I observed him in therapy. He was better able to transfer in the gym than last night. Will discuss in interdisciplinary team rounds. He is saying one Percocet is not enough Current Medications: Active Medications Generic Name Dose Route Start Last Admin Trade Name Freq PRN Reason Stop Dose Admin Acetaminophen 650 mg 05/03/19 11:15 05/05/19 10:50 Tylenol Tab* PO 650 mg Q6H PRN Administration FEVER > 101 Al Hydrox/Mg Hydrox/Simethicone 30 ml 05/03/19 11:15 05/03/19 17:51 Maalox Plus* PO 30 ml Q6H PRN Administration INDIGESTION Alprazolam 3 mg 05/03/19 21:00 05/04/19 22:09 Xanax Tab* PO 3 mg BEDTIME EMILEE Administration Amantadine HCl 100 mg 05/03/19 21:00 05/05/19 09:01 Symmetrel Cap* PO 100 mg BID EMILEE Administration Atorvastatin Calcium 20 mg 05/03/19 21:00 05/04/19 21:00 Lipitor* PO 20 mg 2100 EMILEE Administration Bisacodyl 10 mg 05/03/19 11:15 Dulcolax Supp* [place] DAILY PRN CONSTIPATION Carbidopa/Levodopa 3 tab 05/03/19 14:00 05/05/19 09:01 Sinemet 25/100 Tab(*) PO 3 tab TID EMILEE Administration Cyanocobalamin 5,000 mcg 05/04/19 09:00 05/05/19 09:08 Vitamin B12 Tab* PO Not Given DAILY EMILEE Docusate Sodium 100 mg 05/03/19 21:00 05/05/19 09:02 Colace Cap* PO 100 mg BID EMILEE Administration Entacapone 200 mg 05/03/19 14:00 05/05/19 09:02 Comtan(Nf) PO 200 mg TID EMILEE Administration Heparin Sodium (Porcine) 5,000 units 05/03/19 21:00 05/05/19 09:08 Heparin Vial(*) SUBCUT Not Given Q12HR EMILEE Lactulose 30 ml 05/03/19 11:15 Lactulose* PO Q6H PRN CONSTIPATION Losartan Potassium 25 mg 05/04/19 09:00 05/05/19 09:02 Cozaar Tab* PO 25 mg DAILY EMILEE Administration Magnesium Hydroxide 30 ml 05/03/19 11:15 Milk Of Magnesia Liq* PO Q6H PRN CONSTIPATION Magnesium Oxide 400 mg 05/04/19 09:00 05/05/19 09:02 Magox 400 Tab* PO 400 mg DAILY EMILEE Administration Methocarbamol 750 mg 05/03/19 11:34 Robaxin Tab* PO TID PRN muscle spasm Mineral Oil 30 ml 05/04/19 09:00 05/05/19 11:03 Mineral Oil* PO Not Given DAILY EMILEE Oxycodone/Acetaminophen 1 tab 05/03/19 11:34 05/05/19 09:00 Percocet 5/325 Tab* PO 1 tab Q4H PRN Administration PAIN Polyethylene Glycol/Electrolytes 17 gm 05/04/19 09:00 05/05/19 09:03 Miralax* PO 17 gm DAILY EMILEE Administration Senna 2 tab 05/03/19 21:00 05/04/19 21:00 Senokot Tab* PO 2 tab BEDTIME EMILEE Administration Sotalol HCl 80 mg 05/03/19 21:00 05/05/19 09:03 Betapace Tab* PO 80 mg BID EMILEE Administration Vital Signs: Vital Signs Temp Pulse Resp BP Pulse Ox 97.4 F 66 14 105/67 98 05/05/19 06:00 05/05/19 06:00 05/05/19 09:00 05/05/19 06:00 05/05/19 06:00 Lab Results: Laboratory Results - last 24 hr 05/05/19 07:35 WBC 3.9 RBC 4.24 Hgb 13.6 L Hct 38 L MCV 90 MCH 32 H MCHC 36 RDW 13 Plt Count 142 L MPV 7.4 Neut % (Auto) 52.9 Lymph % (Auto) 23.3 [place] % (Auto) 19.8 Eos % (Auto) 3.5 Baso % (Auto) 0.5 Absolute Neuts (auto) 2.1 Absolute Lymphs (auto) 0.9 L Absolute Monos (auto) 0.8 Absolute Eos (auto) 0.1 Absolute Basos (auto) 0.0 Absolute Nucleated RBC 0.0 Nucleated RBC % 0.0 Exam: HEENT: EOMI LUNGS: Clear bilaterally HEART: Regular rhythm ABDOMEN: Soft +BS EXTREMITIES: Slightly increased tone NEUROLOGIC: Snesation intact. Muscle strength 4+/5 SKIN: Back wound c/d/i Assessment/Plan: 1. Lumbar Spinal Stenosis, S/P L3/4 TLIF with revision of L4/5 fusion with PEEK: PT/OT. Brace when OOB 2. Parkinson's Disease: Comtan/Sinemet/Amantadine 3. History of A Fib, S/P ablation: Betapace 4. History of ICD: stable 5. DVT Prophylaxis: SCDs and TEDs. He is refusing Heparin 6. Advanced Directives: Full code 7. Anxiety: Xanx 8. ITP: Platelets 142 K today 9. Analgesia: Adjusted pain medications 05/05/19 11:55 05/05/19 11:56
--- NOTE | 2019-05-05 12:44 | PMRUTEAM ---
PMRU: Team Meeting Current Status: Nursing: Current Status Skin Deviations [Left Lower Rash Back] Skin Deviations [Midline Back] Incision Skin Deviation Description [ left from the incision Left Lower Back] Skin Deviation Description [ drsg in place Midline Back] Physical Therapy: Current Status Bed Mobility Assistance Min Assist Transfer Mobility Assistance Min Assist Transfer/Bed Mobility Rolling Walker Recommended Devices Ambulation Assistance Min Assist Ambulation Assistive Devices Rolling Walker Number of Feet Patient 150 Ambulated Stairs Assistance Min Assist Stairs Recommended Devices Two Rails Number of Stairs 5 Objective Comments timed up and go: 1 min 10 sec with RW pre-gait: standing marches, anterior stepping, static standing seated: LAQ, heel slides, ankle pumps Occupational Therapy: Current Status Upper Body Dressing Supervision Lower Body Dressing Mod Assist,2 Person Assist Bathing Contact Guard Assist,2 Person Assist Toileting Contact Guard Assist Toilet Transfer Contact Guard Assist Eating Independent Rec Therapy: Current Status Summary of Assessment and Recreation Therapy services introduced and Clinical Impression assessment is complete. Pt. is open to continued leisure visits and participated in pet therapy. Treatment Goals Pt. will engage in leisure activities while on the unit. Treatment Plan Provide recreation therapy and encourage involvement. Social Work: Current Status Discharge Plan return home with home care svs and family support Potential for Family Training pt's partner is involved and supportive Anticipated Discharge Home Destination Discharge With home care svs and family support Nutrition: Current Status Monitoring pt with hx Parkinson's admitted to [facility] s/p L3-L4 transforaminal lumbar interbody fusion with revision of prior L4-L5 fusion, including L iliac crest bone graft (per H&P). Ate 25% D last night; 90% B, 30% L today. Eating independently. Heart healthy diet appropriate given cardiac hx (per H&P ). Last BM yesterday (formed). Labs reviewed. No skin breakdown noted per nursing assessments. Full nutrition to follow per protocol. Goals: Physical Therapy: Initial Goals Bed Mobility Assistance Independent Transfer Mobility Assistance Independent Transfer/Bed Mobility Rolling Walker Recommended Devices Ambulation Independent Ambulation Recommended Devices Rolling Walker Ambulation Distance 150 Stairs Assistance Independent Stair Recommended Devices One Rail Number of Stairs 8 Physical Therapy: Updated Goals Transfer/Bed Mobility Rolling Walker Recommended Devices Occupational Therapy: Initial Goals Goals to be Completed in (Days 7-10 ) Upper Body Bathing Routine Independent Lower Body Bathing Routine Modified Independent with Lower Body Bathing Assistive Long handled sponge Devices Comment Upper Body Dressing Routine Independent Lower Body Dressing Routine Modified Independent with Lower Body Dressing Assistive fruit raiser and sock-aid Devices Toilet Hygeine and Clothing Modified Independent with Management Routine Toilet Hygeine and Clothing OTC Management Assistive Devices Toilet Transfer Routine Modified Independent with Toilet Transfer Assistive OTC and FWW Devices Tub Transfer Routine Modified Independent with Tub Trasnfer Assistive Devices tub bench Functional Transfers for ADL Modified Independent with Functional Transfers for ADl FWW Assistive Devices Grooming Routine Independent Feeding Routine Independent Light Housekeeping Tasks Modified Independent with Light Housekeeping Tasks FWW Assistive Devices Nutrition: Goals Intervention Goals 1. PO will remain adequate to maintain stable wt and promote post-op healing 2. Pt will maintain regular bowel pattern without constipation/diarrhea Social Work: Goals Discharge Plan return home with home care svs and family support Potential for Family Training pt's partner is involved and supportive Anticipated Discharge Home Destination Discharge With home care svs and family support Care Plan: Care Plan ADL's - Improve/Maintain Start: 05/04/19 16:14 Freq: DAILY Status: Active Target: Protocol: Activity Type Activity Date Activity User E-Sign Co-Sign Detail Recorded Client Recorded Date Recorded By Document 05/04/19 16:14 [id number] 05/04/19 16:14 [id number] 05/04/19 16:14 PMRU Outcome: ADL's/ADL Transfers Orders/Interventions Occupational Therapy Evaluation & Treatment Communication Tool in Patient Room Device Yes Address Deficits Secondary To: lumbar fusion, h/o Parkinson's Patient to receive OT 5x/wk for 60-120 Therex min/day Self Care Management Group Therapy UE/LE ADL's with Assist Yes: Loco ADL Transfers with Assist Yes: Loco Toileting: Transfers,Clothing Management Yes: Loco ,Hygeine w/Assist Progression Toward Outcome/Goals Progressing Outcome/Goals Met Pt is a 73 yo male s/p lumbar spinal fusion and has Parkinson's. Pt has limited independence in ADLs d/t decreased balance from parkinson's and spinal precautions. Pt has decreased endurance, as he was fatigued from PT earlier in the morning. Pt will have help at home from partner Sada if needed, but pt has good potential for making progress in rehab d/t pt being independent before being admitted. Pt will benefit from skilled OT services. Cardiovascular- Improve/Maintain Start: 05/03/19 17:21 Freq: QSHIFT Status: Active Target: Protocol: Activity Type Activity Date Activity User E-Sign Co-Sign Detail Recorded Client Recorded Date Recorded By Document 05/04/19 21:00 [id number] 05/04/19 22:32 [id number] 05/04/19 21:00 PMRU Outcome: Cardiovascular Vital Signs q Shift for 48hrs Then BID Yes Daily Weight Ordered No Current Cardiovascular Outcome/Goal Maintain/ Achieve Baseline HR, BP , Perfusion Maintain/ Achieve Hemodynamic Stability Free of Abnormal Cardiac Symptoms Progression Toward Outcome/Goal Progressing Discharge Planning - Improve/Maintain Start: 05/03/19 17:21 Freq: DAILY Status: Active Target: Protocol: Activity Type Activity Date Activity User E-Sign Co-Sign Detail Recorded Client Recorded Date Recorded By Document 05/04/19 21:00 [id number] [id number] 05/04/19 22:32 [id number] 05/04/19 21:00 PMRU Outcome: Discharge Planning Update Patient Family No Outcome/Goals Demonstrates Understanding of Discharge Plan Progression Toward Outcome/Goals Progressing /GI-Improve/Maintain Start: 05/03/19 17:21 Freq: QSHIFT Status: Active Target: Protocol: Activity Type Activity Date Activity User E-Sign Co-Sign Detail Recorded Client Recorded Date Recorded By Document 05/04/19 21:00 [id number] 05/04/19 22:32 [id number] 05/04/19 21:00 PMRU Outcome: Genitourinary/ Gastrointestinal Genitourinary- Outcome/Goals Maintain/ Achieve Urinary Continence Maintain/ Achieve Adequate Urinary Output Gastrointestinal-Outcome/Goals Maintain/ Achieve Bowel Regularity in Accordance with Pt's Baseline Prevent Constipation Progression Toward Outcome/Goals - Progressing Pain/Comfort- Improve/Maintain Start: 05/03/19 17:21 Freq: QSHIFT Status: Active Target: Protocol: Activity Type Activity Date Activity User E-Sign Co-Sign Detail Recorded Client Recorded Date Recorded By Document 05/04/19 21:00 [id number] 05/04/19 22:32 [id number] 05/04/19 21:00 PMRU Outcome: Pain/Comfort Outcome/Goals Demonstrates Knowledge and Use of Available Comfort Measures Achieves Acceptable Comfort/Pain Level as Determined by Patient/Condit Maintain Comfort Level Allowing Patient to Fully Participate in Rehab Progression Toward Outcome/Goals Progressing Outcome/Goals Met Comment pain medication given Safety- Improve/Maintain Start: 05/03/19 17:21 Freq: QSHIFT Status: Active Target: Protocol: Activity Type Activity Date Activity User E-Sign Co-Sign Detail Recorded Client Recorded Date Recorded By Document 05/04/19 21:00 [id number] 05/04/19 22:32 [id number] 05/04/19 21:00 PMRU Outcome: Safety Outcome/Goals Remain Free of Injury or Harm Cooperates with Safety Measures for Least Restrictive Environment Prevent Falls/ Injury Progression Toward Outcome/Goals Progressing Outcome/Goals Met Comment pt uses cb appropriately Skin- Improve/Maintain Start: 05/03/19 17:21 Freq: QSHIFT Status: Active Target: Protocol: Activity Type Activity Date Activity User E-Sign Co-Sign Detail Recorded Client Recorded Date Recorded By Document 05/04/19 21:00 [id number] 05/04/19 22:32 [id number] 05/04/19 21:00 PMRU Outcome: Skin Skin Risk Level Medium Skin Orders Dressing Change Outcome/Goals Maintain/ Improve Skin Intergrity Maintain/ Improve Wound Status Surgical Incisions Healing Progression Toward Outcome/Goals Progressing Medicine Note: Length of Stay: 1 week Anticipated Discharge Destination: Home Tentative Discharge Date: 05/12/19 Discharged to: Home
[2019-05-05] MEDS ORDERED: Hydrocortisone SUPP* 25 MG SUPP (2.5%) PR PRN (15:59)
[2019-05-05] MEDS: Magnesium Hydroxide LIQ* 30 ML UDC PO PRN (17:46)
[2019-05-05] MEDS: Atorvastatin* 20 MG TAB PO SCH (20:57)
[2019-05-05] MEDS: Senna TAB PO SCH (21:00)
[2019-05-05] MEDS: ALPRAZolam TAB* 0.5 MG PO SCH (21:58)
[2019-05-06] MEDS: oxyCODONE/Acetamin 5/325 MG* TAB PO PRN ×5 (01:28→19:48)
[2019-05-06 05:05] LABS: ABS Eosinophils 0.1 10^3/ul (0-0.6); ABS Monocytes 0.7 10^3/ul (0-0.8); ABS Neutrophils 1.5 10^3/ul (1.5-7.7); Eosinophil % 3.4 %; Hematocrit 36 % (42-52); Hemoglobin 12.5 g/dL (14.0-18.0); Lymphocyte % 29.1 %; Mean Corpuscular HGB Conc 35 g/dL (31-36); Mean Corpuscular Hemoglobin 31 pg (27-31); Mean Corpuscular Volume 90 fL (80-94); Mean Platelet Volume 7.5 fL (7.4-10.4); Nucleated Red Blood Cells % 0.2; Platelet Count 151 10^3/uL (150-450); Red Blood Count 4.01 10^6 /uL (4.18-5.48); Red Cell Distribution Width 13 % (10-15); White Blood Count 3.3 10^3/uL (3.5-10.8)
[2019-05-06] MEDS: Amantadine CAP* 100 MG PO SCH ×2 (08:24→21:12)
[2019-05-06] MEDS: Carbidopa/Levodop 25/100 MG TAB(*) PO SCH ×3 (08:25→21:12)
[2019-05-06] MEDS: Heparin VIAL(*) 5000 UNITS/ML VIAL (FIVE THOUSAND) SUBCUT SCH ×2 (08:26→21:23)
[2019-05-06] MEDS: Losartan TAB* 25 MG PO SCH (08:26)
[2019-05-06] MEDS: ENTACAPONE 200 MG PO SCH ×3 (08:26→21:13)
[2019-05-06] MEDS: Sotalol TAB* 80 MG PO SCH ×2 (08:26→21:28)
[2019-05-06] MEDS: Magnesium Oxide TAB* 400 MG PO SCH (08:26)
[2019-05-06] MEDS: Docusate CAP* 100 MG PO SCH ×2 (09:25→21:23)
[2019-05-06] MEDS: Cyanocobalamin TAB* 500 MCG PO SCH (09:25)
[2019-05-06] MEDS: Mineral Oil, LAXITIVE* 30 ML UDC PO SCH (09:25)
[2019-05-06] MEDS: Polyethylene Glycol 3350* 17 GM PACKET PO SCH (09:26)
[2019-05-06] MEDS: Acetaminophen TAB* 325 MG PO PRN (12:39)
--- NOTE | 2019-05-06 19:30 | PN ---
Progress Note Date of Service: 05/06/19 Note: MARISOL NOLAN was visited. Therapy notes read and reviewed. He was able to have a bowel movement. He has better control of his pain. He feels like he is transferring better Current Medications: Active Medications Generic Name Dose Route Start Last Admin Trade Name Freq PRN Reason Stop Dose Admin Acetaminophen 650 mg 05/03/19 11:15 05/06/19 12:39 Tylenol Tab* PO 650 mg Q6H PRN Administration FEVER > 101 Al Hydrox/Mg Hydrox/Simethicone 30 ml 05/03/19 11:15 05/03/19 17:51 Maalox Plus* PO 30 ml Q6H PRN Administration INDIGESTION Alprazolam 3 mg 05/03/19 21:00 05/05/19 21:58 Xanax Tab* PO 3 mg BEDTIME EMILEE Administration Amantadine HCl 100 mg 05/03/19 21:00 05/06/19 08:24 Symmetrel Cap* PO 100 mg BID EMILEE Administration Atorvastatin Calcium 20 mg 05/03/19 21:00 05/05/19 20:57 Lipitor* PO 20 mg 2100 EMILEE Administration Bisacodyl 10 mg 05/03/19 11:15 Dulcolax Supp* [place] DAILY PRN CONSTIPATION Carbidopa/Levodopa 3 tab 05/03/19 14:00 05/06/19 14:22 Sinemet 25/100 Tab(*) PO 3 tab TID EMILEE Administration Cyanocobalamin 5,000 mcg 05/04/19 09:00 05/06/19 09:25 Vitamin B12 Tab* PO Not Given DAILY EMILEE Docusate Sodium 100 mg 05/03/19 21:00 05/06/19 09:25 Colace Cap* PO Not Given BID EMILEE Entacapone 200 mg 05/03/19 14:00 05/06/19 14:22 Comtan(Nf) PO 200 mg TID EMILEE Administration Heparin Sodium (Porcine) 5,000 units 05/03/19 21:00 05/06/19 08:26 Heparin Vial(*) SUBCUT Not Given Q12HR EMILEE Hydrocortisone 25 mg 05/05/19 15:59 Anusol Hc Supp* [place] BID PRN hemorrhoids Lactulose 30 ml 05/03/19 11:15 Lactulose* PO Q6H PRN CONSTIPATION Losartan Potassium 25 mg 05/04/19 09:00 05/06/19 08:26 Cozaar Tab* PO 25 mg DAILY EMILEE Administration Magnesium Hydroxide 30 ml 05/03/19 11:15 05/05/19 17:46 Milk Of Magnbelen Liq* PO 30 ml Q6H PRN Administration CONSTIPATION Magnesium Oxide 400 mg 05/04/19 09:00 05/06/19 08:26 Magox 400 Tab* PO 400 mg DAILY EMILEE Administration Methocarbamol 750 mg 05/03/19 11:34 Robaxin Tab* PO TID PRN muscle spasm Mineral Oil 30 ml 05/04/19 09:00 05/06/19 09:25 Mineral Oil* PO Not Given DAILY EMILEE Oxycodone/Acetaminophen 1 tab 05/03/19 11:34 05/06/19 18:23 Percocet 5/325 Tab* PO 1 tab Q4H PRN Administration PAIN Oxycodone/Acetaminophen 2 tab 05/05/19 11:53 05/06/19 08:27 Percocet 5/325 Tab* PO 2 tab Q4H PRN Administration PAIN - SEVERE Polyethylene Glycol/Electrolytes 17 gm 05/04/19 09:00 05/06/19 09:26 Miralax* PO Not Given DAILY EMILEE Senna 2 tab 05/03/19 21:00 05/05/19 21:00 Senokot Tab* PO Not Given BEDTIME EMILEE Sotalol HCl 80 mg 05/03/19 21:00 05/06/19 08:26 Betapace Tab* PO 80 mg BID EMILEE Administration Vital Signs: Vital Signs Temp Pulse Resp BP Pulse Ox 97.6 F 64 18 115/73 99 05/06/19 16:19 05/06/19 16:19 05/06/19 18:23 05/06/19 16:19 05/06/19 16:19 Lab Results: Laboratory Results - last 24 hr 05/06/19 04:54 WBC 3.3 L RBC 4.01 L Hgb 12.5 L Hct 36 L MCV 90 MCH 31 MCHC 35 RDW 13 Plt Count 151 MPV 7.5 Neut % (Auto) 46.8 Lymph % (Auto) 29.1 [place] % (Auto) 20.0 Eos % (Auto) 3.4 Baso % (Auto) 0.7 Absolute Neuts (auto) 1.5 Absolute Lymphs (auto) 1.0 Absolute Monos (auto) 0.7 Absolute Eos (auto) 0.1 Absolute Basos (auto) 0.0 Absolute Nucleated RBC 0.0 Nucleated RBC % 0.2 Exam: HEENT: EOMI LUNGS: Clear bilaterally HEART: Regular rhythm ABDOMEN: Soft +BS EXTREMITIES: Slightly increased tone NEUROLOGIC: Snesation intact. Muscle strength 4+/5 SKIN: Back wound c/d/i Assessment/Plan: 1. Lumbar Spinal Stenosis, S/P L3/4 TLIF with revision of L4/5 fusion with PEEK: PT/OT. Brace when OOB 2. Parkinson's Disease: Comtan/Sinemet/Amantadine 3. History of A Fib, S/P ablation: Betapace 4. History of ICD: stable 5. DVT Prophylaxis: SCDs and TEDs. He is refusing Heparin 6. Advanced Directives: Full code 7. Anxiety: Ativan, then back to Xanax 8. ITP: Platelets 151 K today 9. Analgesia: Adjusted pain medications 05/06/19 19:30 05/06/19 19:31
[2019-05-06] MEDS: Atorvastatin* 20 MG TAB PO SCH (21:12)
[2019-05-06] MEDS: Senna TAB PO SCH (21:23)
[2019-05-06] MEDS: Methocarbamol TAB* 500 MG PO PRN (21:27)
[2019-05-06] MEDS: ALPRAZolam TAB* 0.5 MG PO SCH (22:02)
[2019-05-07] MEDS: oxyCODONE/Acetamin 5/325 MG* TAB PO PRN ×5 (00:02→22:17)
[2019-05-07] MEDS: Methocarbamol TAB* 500 MG PO PRN (04:29)
[2019-05-07] MEDS: Losartan TAB* 25 MG PO SCH (08:49)
[2019-05-07] MEDS: ENTACAPONE 200 MG PO SCH ×3 (08:49→21:16)
[2019-05-07] MEDS: Amantadine CAP* 100 MG PO SCH ×2 (08:49→21:16)
[2019-05-07] MEDS: Docusate CAP* 100 MG PO SCH ×2 (08:49→21:20)
[2019-05-07] MEDS: Carbidopa/Levodop 25/100 MG TAB(*) PO SCH ×3 (08:49→21:17)
[2019-05-07] MEDS: Mineral Oil, LAXITIVE* 30 ML UDC PO SCH (08:50)
[2019-05-07] MEDS: Polyethylene Glycol 3350* 17 GM PACKET PO SCH (08:50)
[2019-05-07] MEDS: Magnesium Oxide TAB* 400 MG PO SCH (08:50)
[2019-05-07] MEDS: Acetaminophen TAB* 325 MG PO PRN ×2 (08:50→18:23)
[2019-05-07] MEDS: Sotalol TAB* 80 MG PO SCH ×2 (08:50→21:16)
[2019-05-07] MEDS: Heparin VIAL(*) 5000 UNITS/ML VIAL (FIVE THOUSAND) SUBCUT SCH ×2 (08:58→21:20)
[2019-05-07] MEDS: Cyanocobalamin TAB* 500 MCG PO SCH (08:58)
--- NOTE | 2019-05-07 17:27 | PN ---
Progress Note Date of Service: 05/07/19 Note: MARISOL Diaz AN HATCH was visited. Therapy notes read and reviewed. He has minimal complaints. Moving a little better with getting out of bed. Current Medications: Active Medications Generic Name Dose Route Start Last Admin Trade Name Freq PRN Reason Stop Dose Admin Acetaminophen 650 mg 05/03/19 11:15 05/07/19 08:50 Tylenol Tab* PO 650 mg Q6H PRN Administration FEVER > 101 Al Hydrox/Mg Hydrox/Simethicone 30 ml 05/03/19 11:15 05/03/19 17:51 Maalox Plus* PO 30 ml Q6H PRN Administration INDIGESTION Alprazolam 3 mg 05/03/19 21:00 05/06/19 22:02 Xanax Tab* PO 3 mg BEDTIME EMILEE Administration Amantadine HCl 100 mg 05/03/19 21:00 05/07/19 08:49 Symmetrel Cap* PO 100 mg BID EMILEE Administration Atorvastatin Calcium 20 mg 05/03/19 21:00 05/06/19 21:12 Lipitor* PO 20 mg 2100 EMILEE Administration Bisacodyl 10 mg 05/03/19 11:15 Dulcolax Supp* [place] DAILY PRN CONSTIPATION Carbidopa/Levodopa 3 tab 05/03/19 14:00 05/07/19 14:26 Sinemet 25/100 Tab(*) PO 3 tab TID EMILEE Administration Cyanocobalamin 5,000 mcg 05/04/19 09:00 05/07/19 08:58 Vitamin B12 Tab* PO Not Given DAILY EMILEE Docusate Sodium 100 mg 05/03/19 21:00 05/07/19 08:49 Colace Cap* PO 100 mg BID EMILEE Administration Entacapone 200 mg 05/03/19 14:00 05/07/19 14:26 Comtan(Nf) PO 200 mg TID EMILEE Administration Heparin Sodium (Porcine) 5,000 units 05/03/19 21:00 05/07/19 08:58 Heparin Vial(*) SUBCUT Not Given Q12HR EMILEE Hydrocortisone 25 mg 05/05/19 15:59 05/06/19 20:55 Anusol Hc Supp* [place] 25 mg BID PRN Administration hemorrhoids Lactulose 30 ml 05/03/19 11:15 Lactulose* PO Q6H PRN CONSTIPATION Losartan Potassium 25 mg 05/04/19 09:00 05/07/19 08:49 Cozaar Tab* PO 25 mg DAILY EMILEE Administration Magnesium Hydroxide 30 ml 05/03/19 11:15 05/05/19 17:46 Milk Of Magnesia Liq* PO 30 ml Q6H PRN Administration CONSTIPATION Magnesium Oxide 400 mg 05/04/19 09:00 05/07/19 08:50 Magox 400 Tab* PO 400 mg DAILY EMILEE Administration Methocarbamol 750 mg 05/03/19 11:34 05/07/19 04:29 Robaxin Tab* PO 750 mg TID PRN Administration muscle spasm Mineral Oil 30 ml 05/04/19 09:00 05/07/19 08:50 Mineral Oil* PO 30 ml DAILY EMILEE Administration Oxycodone/Acetaminophen 1 tab 05/03/19 11:34 05/07/19 12:23 Percocet 5/325 Tab* PO 1 tab Q4H PRN Administration PAIN Oxycodone/Acetaminophen 2 tab 05/05/19 11:53 05/07/19 06:51 Percocet 5/325 Tab* PO 2 tab Q4H PRN Administration PAIN - SEVERE Polyethylene Glycol/Electrolytes 17 gm 05/04/19 09:00 05/07/19 08:50 Miralax* PO Not Given DAILY EMILEE Senna 2 tab 05/03/19 21:00 05/06/19 21:23 Senokot Tab* PO Not Given BEDTIME EMILEE Sotalol HCl 80 mg 05/03/19 21:00 05/07/19 08:50 Betapace Tab* PO 80 mg BID EMILEE Administration Vital Signs: Vital Signs Temp Pulse Resp BP Pulse Ox 97.7 F 52 20 104/53 99 05/07/19 15:45 05/07/19 15:45 05/07/19 15:45 05/07/19 15:45 05/07/19 15:45 Exam: HEENT: EOMI LUNGS: Clear bilaterally HEART: Regular rhythm ABDOMEN: Soft +BS EXTREMITIES: Slightly increased tone NEUROLOGIC: Sensation intact. Muscle strength 4+/5 SKIN: Back wound c/d/i Assessment/Plan: 1. Lumbar Spinal Stenosis, S/P L3/4 TLIF with revision of L4/5 fusion with PEEK: PT/OT. Brace when OOB 2. Parkinson's Disease: Comtan/Sinemet/Amantadine 3. History of A Fib, S/P ablation: Betapace 4. History of ICD: stable 5. DVT Prophylaxis: SCDs and TEDs. He is refusing Heparin 6. Advanced Directives: Full code 7. Anxiety: Xanax 8. ITP: Platelets 151 K yesterday 9. Analgesia: Adjusted pain medications 05/07/19 17:27
[2019-05-07] MEDS: Magnesium Hydroxide LIQ* 30 ML UDC PO PRN (19:38)
[2019-05-07] MEDS: Atorvastatin* 20 MG TAB PO SCH (21:16)
[2019-05-07] MEDS: Senna TAB PO SCH (21:20)
[2019-05-07] MEDS: ALPRAZolam TAB* 0.5 MG PO SCH (22:15)
[2019-05-08] MEDS: Methocarbamol TAB* 500 MG PO PRN ×3 (01:34→17:20)
[2019-05-08 06:26] LABS: ABS Eosinophils 0.1 10^3/ul (0-0.6); ABS Monocytes 0.7 10^3/ul (0-0.8); ABS Neutrophils 2.3 10^3/ul (1.5-7.7); Eosinophil % 2.3 %; Hematocrit 37 % (42-52); Hemoglobin 12.8 g/dL (14.0-18.0); Lymphocyte % 23.8 %; Mean Corpuscular HGB Conc 35 g/dL (31-36); Mean Corpuscular Hemoglobin 31 pg (27-31); Mean Corpuscular Volume 90 fL (80-94); Mean Platelet Volume 7.3 fL (7.4-10.4); Nucleated Red Blood Cells % 0.1; Platelet Count 171 10^3/uL (150-450); Red Blood Count 4.11 10^6 /uL (4.18-5.48); Red Cell Distribution Width 13 % (10-15); White Blood Count 4.1 10^3/uL (3.5-10.8)
[2019-05-08] MEDS: Mineral Oil, LAXITIVE* 30 ML UDC PO SCH (09:05)
[2019-05-08] MEDS: Losartan TAB* 25 MG PO SCH (09:05)
[2019-05-08] MEDS: Sotalol TAB* 80 MG PO SCH ×2 (09:05→21:09)
[2019-05-08] MEDS: Magnesium Oxide TAB* 400 MG PO SCH (09:05)
[2019-05-08] MEDS: Polyethylene Glycol 3350* 17 GM PACKET PO SCH (09:05)
[2019-05-08] MEDS: Carbidopa/Levodop 25/100 MG TAB(*) PO SCH ×3 (09:06→21:09)
[2019-05-08] MEDS: Amantadine CAP* 100 MG PO SCH ×2 (09:06→21:09)
[2019-05-08] MEDS: oxyCODONE/Acetamin 5/325 MG* TAB PO PRN ×2 (09:06→18:58)
[2019-05-08] MEDS: ENTACAPONE 200 MG PO SCH ×3 (09:06→21:09)
[2019-05-08] MEDS: Heparin VIAL(*) 5000 UNITS/ML VIAL (FIVE THOUSAND) SUBCUT SCH ×2 (09:33→21:20)
[2019-05-08] MEDS: Docusate CAP* 100 MG PO SCH ×2 (09:33→21:09)
[2019-05-08] MEDS: Cyanocobalamin TAB* 500 MCG PO SCH (09:33)
--- NOTE | 2019-05-08 10:25 | PN ---
Progress Note Date of Service: 05/08/19 Note: MARISOL Diaz AN HATCH was visited. Nursing and therapy notes read and reviewed. No new issues overnight. He wonders how long he needs to use the brace out of bed. No chest pain, shortness of breath or abdominal pain. He feels his sensation is almost back to normal. Current Medications: Active Medications Generic Name Dose Route Start Last Admin Trade Name Freq PRN Reason Stop Dose Admin Acetaminophen 650 mg 05/03/19 11:15 05/07/19 18:23 Tylenol Tab* PO 325 mg Q6H PRN Administration FEVER > 101 Al Hydrox/Mg Hydrox/Simethicone 30 ml 05/03/19 11:15 05/03/19 17:51 Maalox Plus* PO 30 ml Q6H PRN Administration INDIGESTION Alprazolam 3 mg 05/03/19 21:00 05/07/19 22:15 Xanax Tab* PO 3 mg BEDTIME EMILEE Administration Amantadine HCl 100 mg 05/03/19 21:00 05/08/19 09:06 Symmetrel Cap* PO 100 mg BID EMILEE Administration Atorvastatin Calcium 20 mg 05/03/19 21:00 05/07/19 21:16 Lipitor* PO 20 mg 2100 EMILEE Administration Bisacodyl 10 mg 05/03/19 11:15 Dulcolax Supp* [place] DAILY PRN CONSTIPATION Carbidopa/Levodopa 3 tab 05/03/19 14:00 05/08/19 09:06 Sinemet 25/100 Tab(*) PO 3 tab TID EMILEE Administration Cyanocobalamin 5,000 mcg 05/04/19 09:00 05/08/19 09:33 Vitamin B12 Tab* PO Not Given DAILY EMILEE Docusate Sodium 100 mg 05/03/19 21:00 05/08/19 09:33 Colace Cap* PO Not Given BID EMILEE Entacapone 200 mg 05/03/19 14:00 05/08/19 09:06 Comtan(Nf) PO 200 mg TID EMILEE Administration Heparin Sodium (Porcine) 5,000 units 05/03/19 21:00 05/08/19 09:33 Heparin Vial(*) SUBCUT Not Given Q12HR EMILEE Hydrocortisone 25 mg 05/05/19 15:59 05/06/19 20:55 Anusol Hc Supp* [place] 25 mg BID PRN Administration hemorrhoids Lactulose 30 ml 05/03/19 11:15 Lactulose* PO Q6H PRN CONSTIPATION Losartan Potassium 25 mg 05/04/19 09:00 05/08/19 09:05 Cozaar Tab* PO 25 mg DAILY EMILEE Administration Magnesium Hydroxide 30 ml 05/03/19 11:15 05/07/19 19:38 Milk Of Magnesia Liq* PO 30 ml Q6H PRN Administration CONSTIPATION Magnesium Oxide 400 mg 05/04/19 09:00 05/08/19 09:05 Magox 400 Tab* PO 400 mg DAILY EMILEE Administration Methocarbamol 750 mg 05/03/19 11:34 05/08/19 01:34 Robaxin Tab* PO 750 mg TID PRN Administration muscle spasm Mineral Oil 30 ml 05/04/19 09:00 05/08/19 09:05 Mineral Oil* PO Not Given DAILY EMILEE Oxycodone/Acetaminophen 1 tab 05/03/19 11:34 05/07/19 22:17 Percocet 5/325 Tab* PO 1 tab Q4H PRN Administration PAIN Oxycodone/Acetaminophen 2 tab 05/05/19 11:53 05/08/19 09:06 Percocet 5/325 Tab* PO 2 tab Q4H PRN Administration PAIN - SEVERE Polyethylene Glycol/Electrolytes 17 gm 05/04/19 09:00 05/08/19 09:05 Miralax* PO Not Given DAILY EMILEE Senna 2 tab 05/03/19 21:00 05/07/19 21:20 Senokot Tab* PO Not Given BEDTIME EMILEE Sotalol HCl 80 mg 05/03/19 21:00 05/08/19 09:05 Betapace Tab* PO 80 mg BID EMILEE Administration Vital Signs: Vital Signs Temp Pulse Resp BP Pulse Ox 97.7 F 70 18 108/64 100 05/08/19 05:55 05/08/19 05:55 05/08/19 09:08 05/08/19 05:55 05/08/19 05:55 Lab Results: Laboratory Results - last 24 hr 05/08/19 05:38 WBC 4.1 RBC 4.11 L Hgb 12.8 L Hct 37 L MCV 90 MCH 31 MCHC 35 RDW 13 Plt Count 171 MPV 7.3 L Neut % (Auto) 56.7 Lymph % (Auto) 23.8 [place] % (Auto) 16.6 Eos % (Auto) 2.3 Baso % (Auto) 0.6 Absolute Neuts (auto) 2.3 Absolute Lymphs (auto) 1.0 Absolute Monos (auto) 0.7 Absolute Eos (auto) 0.1 Absolute Basos (auto) 0.0 Absolute Nucleated RBC 0.0 Nucleated RBC % 0.1 Exam: GEN: no acute distress. alert and appropriate. LUNGS: Clear to auscultation bilaterally HEART: Regular rate and rhythm ABDOMEN: Soft, + bowel sounds, non-tender, non-distended EXTREMITIES: no edema NEUROLOGIC: Sensation intact. Muscle strength 4+/5 BLE. Assessment/Plan: 1. Lumbar Spinal Stenosis, S/P L3/4 TLIF with revision of L4/5 fusion with PEEK: PT/OT. Brace when OOB. f/u with Dr. Maya 2. Parkinson's Disease: Comtan/Sinemet/Amantadine 3. History of A Fib, S/P ablation: Betapace 4. History of ICD and pacemaker: stable 5. DVT Prophylaxis: SCDs and TEDs. He is refusing Heparin despite normal platelets. 6. Advanced Directives: Full code. Leticia is hcp. 7. Anxiety: Xanax 8. ITP: Platelets 171 9. Analgesia: pain medications 10. Estimated LOS: 05/12/19 05/08/19 10:25
[2019-05-08] MEDS ORDERED: Mineral Oil ENEMA* 1 BOTTLE PR ONE (20:00)
[2019-05-08] MEDS: Atorvastatin* 20 MG TAB PO SCH (21:09)
[2019-05-08] MEDS: Senna TAB PO SCH (21:50)
[2019-05-08] MEDS: ALPRAZolam TAB* 0.5 MG PO SCH (22:09)
[2019-05-09] MEDS: Methocarbamol TAB* 500 MG PO PRN ×3 (00:31→21:19)
[2019-05-09] MEDS: oxyCODONE/Acetamin 5/325 MG* TAB PO PRN ×4 (00:31→21:18)
[2019-05-09] MEDS: Mineral Oil, LAXITIVE* 30 ML UDC PO SCH (08:34)
[2019-05-09] MEDS: Polyethylene Glycol 3350* 17 GM PACKET PO SCH (08:34)
[2019-05-09] MEDS: Losartan TAB* 25 MG PO SCH (08:35)
[2019-05-09] MEDS: Carbidopa/Levodop 25/100 MG TAB(*) PO SCH ×3 (08:36→21:13)
[2019-05-09] MEDS: Sotalol TAB* 80 MG PO SCH ×2 (08:38→21:14)
[2019-05-09] MEDS: Amantadine CAP* 100 MG PO SCH ×2 (08:38→21:12)
[2019-05-09] MEDS: ENTACAPONE 200 MG PO SCH ×3 (08:38→21:12)
[2019-05-09] MEDS: Docusate CAP* 100 MG PO SCH ×2 (08:38→21:13)
[2019-05-09] MEDS: Magnesium Oxide TAB* 400 MG PO SCH (08:38)
[2019-05-09] MEDS: Cyanocobalamin TAB* 500 MCG PO SCH (08:38)
--- NOTE | 2019-05-09 09:33 | PN ---
Progress Note Date of Service: 05/09/19 Note: MARISOL Diaz AN HATCH was visited. Nursing and therapy notes read and reviewed. No chest pain, shortness of breath or abdominal pain. He notes some increased urine frequency intermittently but also says he has a large prostate. Current Medications: Active Medications Generic Name Dose Route Start Last Admin Trade Name Freq PRN Reason Stop Dose Admin Acetaminophen 650 mg 05/03/19 11:15 05/07/19 18:23 Tylenol Tab* PO 325 mg Q6H PRN Administration FEVER > 101 Al Hydrox/Mg Hydrox/Simethicone 30 ml 05/03/19 11:15 05/03/19 17:51 Maalox Plus* PO 30 ml Q6H PRN Administration INDIGESTION Alprazolam 3 mg 05/03/19 21:00 05/08/19 22:09 Xanax Tab* PO 3 mg BEDTIME EMILEE Administration Amantadine HCl 100 mg 05/03/19 21:00 05/09/19 08:38 Symmetrel Cap* PO 100 mg BID EMILEE Administration Atorvastatin Calcium 20 mg 05/03/19 21:00 05/08/19 21:09 Lipitor* PO 20 mg 2100 EMILEE Administration Bisacodyl 10 mg 05/03/19 11:15 Dulcolax Supp* [place] DAILY PRN CONSTIPATION Carbidopa/Levodopa 3 tab 05/03/19 14:00 05/09/19 08:36 Sinemet 25/100 Tab(*) PO 3 tab TID EMILEE Administration Cyanocobalamin 5,000 mcg 05/04/19 09:00 05/09/19 08:38 Vitamin B12 Tab* PO Not Given DAILY EMILEE Docusate Sodium 100 mg 05/03/19 21:00 05/09/19 08:38 Colace Cap* PO 100 mg BID EMILEE Administration Entacapone 200 mg 05/03/19 14:00 05/09/19 08:38 Comtan(Nf) PO 200 mg TID EMILEE Administration Heparin Sodium (Porcine) 5,000 units 05/03/19 21:00 05/08/19 21:20 Heparin Vial(*) SUBCUT Not Given Q12HR EMILEE Hydrocortisone 25 mg 05/05/19 15:59 05/06/19 20:55 Anusol Hc Supp* [place] 25 mg BID PRN Administration hemorrhoids Lactulose 30 ml 05/03/19 11:15 Lactulose* PO Q6H PRN CONSTIPATION Losartan Potassium 25 mg 05/04/19 09:00 05/09/19 08:35 Cozaar Tab* PO 25 mg DAILY EMILEE Administration Magnesium Hydroxide 30 ml 05/03/19 11:15 05/07/19 19:38 Milk Of Magnesia Liq* PO 30 ml Q6H PRN Administration CONSTIPATION Magnesium Oxide 400 mg 05/04/19 09:00 05/09/19 08:38 Magox 400 Tab* PO 400 mg DAILY EMILEE Administration Methocarbamol 750 mg 05/03/19 11:34 05/09/19 00:31 Robaxin Tab* PO 750 mg TID PRN Administration muscle spasm Mineral Oil 30 ml 05/04/19 09:00 05/09/19 08:34 Mineral Oil* PO 30 ml DAILY EMILEE Administration Oxycodone/Acetaminophen 1 tab 05/03/19 11:34 05/09/19 08:36 Percocet 5/325 Tab* PO 1 tab Q4H PRN Administration PAIN Oxycodone/Acetaminophen 2 tab 05/05/19 11:53 05/08/19 09:06 Percocet 5/325 Tab* PO 2 tab Q4H PRN Administration PAIN - SEVERE Polyethylene Glycol/Electrolytes 17 gm 05/04/19 09:00 05/09/19 08:34 Miralax* PO 17 gm DAILY EMILEE Administration Senna 2 tab 05/03/19 21:00 05/08/19 21:50 Senokot Tab* PO Not Given BEDTIME EMILEE Sotalol HCl 80 mg 05/03/19 21:00 05/09/19 08:38 Betapace Tab* PO 80 mg BID EMILEE Administration Vital Signs: Vital Signs Temp Pulse Resp BP Pulse Ox 97.5 F 68 16 135/82 100 05/09/19 05:30 05/09/19 05:30 05/09/19 08:36 05/09/19 05:30 05/09/19 05:30 Exam: GEN: no acute distress. alert and appropriate. LUNGS: Clear to auscultation bilaterally HEART: Regular rate and rhythm ABDOMEN: Soft, + bowel sounds, non-tender, non-distended EXTREMITIES: no edema NEUROLOGIC: Sensation intact. Muscle strength 4+/5 BLE. Assessment/Plan: 1. Lumbar Spinal Stenosis, S/P L3/4 TLIF with revision of L4/5 fusion with PEEK: PT/OT. Brace when OOB. f/u with Dr. Maya 2. Parkinson's Disease: Comtan/Sinemet/Amantadine 3. History of A Fib, S/P ablation: Betapace 4. History of ICD and pacemaker: stable 5. DVT Prophylaxis: SCDs and TEDs. He is refusing Heparin despite normal platelets. 6. Advanced Directives: Full code. Leticia is hcp. 7. Anxiety: Xanax 8. ITP: Platelets 171 on 05/08. 9. Analgesia: pain medications 10. Estimated LOS: 05/12/19 11. Urine frequency: check UA. 05/09/19 09:32
[2019-05-09] MEDS: Heparin VIAL(*) 5000 UNITS/ML VIAL (FIVE THOUSAND) SUBCUT SCH ×2 (09:42→21:15)
[2019-05-09 15:54] LABS: Urine Appearance Clear; Urine Bilirubin Negative (Negative); Urine Blood Negative (Negative); Urine Color Amber; Urine Glucose Negative (Negative); Urine Ketones Trace (Negative); Urine Nitrite Negative (Negative); Urine Protein Negative (Negative); Urine Specific Gravity 1.021 (1.010-1.030); Urine Urobilinogen Negative (Negative)
[2019-05-09] MEDS: Acetaminophen TAB* 325 MG PO PRN (18:39)
[2019-05-09] MEDS: Senna TAB PO SCH (21:13)
[2019-05-09] MEDS: Atorvastatin* 20 MG TAB PO SCH (21:14)
[2019-05-09] MEDS: ALPRAZolam TAB* 0.5 MG PO SCH (21:53)
--- NOTE | 2019-05-09 23:02 | PN ---
Progress Note - Progress Note Date of Service: 05/09/19 Note: PAtient seen and examined this am. Ambulates, Tolerates Po well, Voids. Preop back pain significantly improved, Preop LE pain resolved. Wound s,c,d Neuro intact. Appreciate PMRU care Follow up in the office in 1 month with XR of lumbar spine. Ree Maya MD
[2019-05-10] MEDS: oxyCODONE/Acetamin 5/325 MG* TAB PO PRN ×3 (07:44→20:58)
[2019-05-10] MEDS: Methocarbamol TAB* 500 MG PO PRN ×2 (07:47→15:44)
[2019-05-10] MEDS: Cyanocobalamin TAB* 500 MCG PO SCH (08:33)
[2019-05-10] MEDS: Docusate CAP* 100 MG PO SCH ×2 (08:33→20:57)
[2019-05-10] MEDS: Amantadine CAP* 100 MG PO SCH ×2 (08:33→20:58)
[2019-05-10] MEDS: Carbidopa/Levodop 25/100 MG TAB(*) PO SCH ×3 (08:33→20:57)
[2019-05-10] MEDS: Heparin VIAL(*) 5000 UNITS/ML VIAL (FIVE THOUSAND) SUBCUT SCH ×2 (08:34→21:01)
[2019-05-10] MEDS: ENTACAPONE 200 MG PO SCH ×3 (08:34→20:58)
[2019-05-10] MEDS: Magnesium Oxide TAB* 400 MG PO SCH (08:34)
[2019-05-10] MEDS: Losartan TAB* 25 MG PO SCH (08:34)
[2019-05-10] MEDS: Mineral Oil, LAXITIVE* 30 ML UDC PO SCH (08:35)
[2019-05-10] MEDS: Sotalol TAB* 80 MG PO SCH ×2 (08:35→20:57)
[2019-05-10] MEDS: Polyethylene Glycol 3350* 17 GM PACKET PO SCH (08:35)
--- NOTE | 2019-05-10 09:24 | PN ---
Progress Note Date of Service: 05/10/19 Note: MARISOL NOLAN JR was visited. Nursing notes read and reviewed. No chest pain , shortness of breath or abdominal pain. Current Medications: Active Medications Generic Name Dose Route Start Last Admin Trade Name Freq PRN Reason Stop Dose Admin Acetaminophen 650 mg 05/03/19 11:15 05/09/19 18:39 Tylenol Tab* PO 650 mg Q6H PRN Administration FEVER > 101 Al Hydrox/Mg Hydrox/Simethicone 30 ml 05/03/19 11:15 05/03/19 17:51 Maalox Plus* PO 30 ml Q6H PRN Administration INDIGESTION Alprazolam 3 mg 05/03/19 21:00 05/09/19 21:53 Xanax Tab* PO 3 mg BEDTIME EMILEE Administration Amantadine HCl 100 mg 05/03/19 21:00 05/10/19 08:33 Symmetrel Cap* PO 100 mg BID EMILEE Administration Atorvastatin Calcium 20 mg 05/03/19 21:00 05/09/19 21:14 Lipitor* PO 20 mg 2100 EMILEE Administration Bisacodyl 10 mg 05/03/19 11:15 Dulcolax Supp* [place] DAILY PRN CONSTIPATION Carbidopa/Levodopa 3 tab 05/03/19 14:00 05/10/19 08:33 Sinemet 25/100 Tab(*) PO 3 tab TID EMILEE Administration Docusate Sodium 100 mg 05/03/19 21:00 05/10/19 08:33 Colace Cap* PO 100 mg BID EMILEE Administration Entacapone 200 mg 05/03/19 14:00 05/10/19 08:34 Comtan(Nf) PO 200 mg TID EMILEE Administration Heparin Sodium (Porcine) 5,000 units 05/03/19 21:00 05/10/19 08:34 Heparin Vial(*) SUBCUT Not Given Q12HR EMILEE Hydrocortisone 25 mg 05/05/19 15:59 05/06/19 20:55 Anusol Hc Supp* [place] 25 mg BID PRN Administration hemorrhoids Lactulose 30 ml 05/03/19 11:15 Lactulose* PO Q6H PRN CONSTIPATION Losartan Potassium 25 mg 05/04/19 09:00 05/10/19 08:34 Cozaar Tab* PO 25 mg DAILY EMILEE Administration Magnesium Hydroxide 30 ml 05/03/19 11:15 05/07/19 19:38 Milk Of Magnesia Liq* PO 30 ml Q6H PRN Administration CONSTIPATION Magnesium Oxide 400 mg 05/04/19 09:00 05/10/19 08:34 Magox 400 Tab* PO 400 mg DAILY EMILEE Administration Methocarbamol 750 mg 05/03/19 11:34 05/10/19 07:47 Robaxin Tab* PO 750 mg TID PRN Administration muscle spasm Mineral Oil 30 ml 05/04/19 09:00 05/10/19 08:35 Mineral Oil* PO Not Given DAILY EMILEE Oxycodone/Acetaminophen 1 tab 05/03/19 11:34 05/10/19 07:44 Percocet 5/325 Tab* PO 1 tab Q4H PRN Administration PAIN Oxycodone/Acetaminophen 2 tab 05/05/19 11:53 05/08/19 09:06 Percocet 5/325 Tab* PO 2 tab Q4H PRN Administration PAIN - SEVERE Polyethylene Glycol/Electrolytes 17 gm 05/04/19 09:00 05/10/19 08:35 Miralax* PO 17 gm DAILY EMILEE Administration Senna 2 tab 05/03/19 21:00 05/09/19 21:13 Senokot Tab* PO 2 tab BEDTIME EMILEE Administration Sotalol HCl 80 mg 05/03/19 21:00 05/10/19 08:35 Betapace Tab* PO 80 mg BID EMILEE Administration Vital Signs: Vital Signs Temp Pulse Resp BP Pulse Ox 98.3 F 64 18 105/59 97 05/10/19 06:28 05/10/19 06:28 05/10/19 08:00 05/10/19 06:28 05/10/19 08:00 Lab Results: Laboratory Results - last 24 hr 05/09/19 13:56 Urine Color Lisa Urine Appearance Clear Urine pH 6.0 Ur Specific [place] 1.021 Urine Protein Negative Urine Ketones Trace A Urine Blood Negative Urine Nitrate Negative Urine Bilirubin Negative Urine Urobilinogen Negative Ur Leukocyte Esterase Negative Urine Glucose Negative Exam: GEN: no acute distress. alert and appropriate. LUNGS: Clear to auscultation bilaterally HEART: Regular rate and rhythm ABDOMEN: Soft, + bowel sounds, non-tender, non-distended EXTREMITIES: no edema NEUROLOGIC: Sensation intact. Muscle strength 4+/5 BLE. SPINE: Mepilex dressing intact Assessment/Plan: 1. Lumbar Spinal Stenosis, S/P L3/4 TLIF with revision of L4/5 fusion with PEEK : PT/OT. Brace when OOB. f/u with Dr. Maya in 1 month. Dressing changed to mepilex by neurosurgery 05/09/19. 2. Parkinson's Disease: Comtan/Sinemet/Amantadine 3. History of A Fib, S/P ablation: Betapace 4. History of ICD and pacemaker: stable 5. DVT Prophylaxis: SCDs and TEDs. He is refusing Heparin despite normal platelets. 6. Advanced Directives: Full code. Leticia is hcp. 7. Anxiety: Xanax 8. ITP: Platelets 171 on 05/08. 9. Analgesia: pain medications 10. Estimated LOS: 05/12/19 11. Urine frequency: UA negative 05/09. 12. Hypomagnesemia: recheck level tomorrow. 05/10/19 09:23
[2019-05-10] MEDS: Senna TAB PO SCH (20:57)
[2019-05-10] MEDS: Atorvastatin* 20 MG TAB PO SCH (20:57)
[2019-05-10] MEDS: ALPRAZolam TAB* 0.5 MG PO SCH (21:55)
[2019-05-11 05:52] LABS: Albumin 3.3 g/dL (3.2-5.2); Calcium 9.1 mg/dL (8.6-10.3); Magnesium 1.8 mg/dL (1.9-2.7); Potassium 4.3 mmol/L (3.5-5.0); Total Bilirubin 0.5 mg/dL (0.2-1.0)
[2019-05-11 05:58] LABS: Albumin/Globulin Ratio 0.9 (1-3); BUN/Creatinine Ratio 19.3 (8-20); EGFR African American 110.5 (>60); EGFR Non-African American 91.3 (>60); Globulin 3.5 g/dL (2-4); Total Protein 6.8 g/dL (6.4-8.9)
[2019-05-11 07:11] LABS: ABS Eosinophils 0.1 10^3/ul (0-0.6); ABS Lymphocytes 0.7 10^3/ul (1.0-4.8); ABS Monocytes 0.8 10^3/ul (0-0.8); ABS Neutrophils 2.6 10^3/ul (1.5-7.7); Eosinophil % 1.6 %; Hematocrit 37 % (42-52); Hemoglobin 13.2 g/dL (14.0-18.0); Lymphocyte % 15.9 %; Mean Corpuscular HGB Conc 35 g/dL (31-36); Mean Corpuscular Hemoglobin 31 pg (27-31); Mean Corpuscular Volume 89 fL (80-94); Mean Platelet Volume 7.2 fL (7.4-10.4); Nucleated Red Blood Cells % 0.3; Platelet Count 164 10^3/uL (150-450); Red Blood Count 4.19 10^6 /uL (4.18-5.48); Red Cell Distribution Width 13 % (10-15); White Blood Count 4.2 10^3/uL (3.5-10.8)
[2019-05-11] MEDS: Carbidopa/Levodop 25/100 MG TAB(*) PO SCH ×3 (08:11→21:14)
[2019-05-11] MEDS: Magnesium Oxide TAB* 400 MG PO SCH (08:11)
[2019-05-11] MEDS: Docusate CAP* 100 MG PO SCH ×2 (08:11→21:14)
[2019-05-11] MEDS: Sotalol TAB* 80 MG PO SCH ×2 (08:12→21:14)
[2019-05-11] MEDS: Mineral Oil, LAXITIVE* 30 ML UDC PO SCH (08:12)
[2019-05-11] MEDS: Polyethylene Glycol 3350* 17 GM PACKET PO SCH (08:12)
[2019-05-11] MEDS: Losartan TAB* 25 MG PO SCH (08:12)
[2019-05-11] MEDS: Amantadine CAP* 100 MG PO SCH ×2 (08:13→21:15)
[2019-05-11] MEDS: ENTACAPONE 200 MG PO SCH ×3 (08:13→21:16)
[2019-05-11] MEDS: Heparin VIAL(*) 5000 UNITS/ML VIAL (FIVE THOUSAND) SUBCUT SCH ×2 (08:14→20:44)
--- NOTE | 2019-05-11 08:31 | PN ---
Progress Note Date of Service: 05/11/19 Note: MARISOL Diaz AN HATCH was visited. Nursing notes read and reviewed. No new issues over night. He is eager to go home tomorrow. No chest pain, shortness of breath or abdominal pain. Current Medications: Active Medications Generic Name Dose Route Start Last Admin Trade Name Freq PRN Reason Stop Dose Admin Acetaminophen 650 mg 05/03/19 11:15 05/09/19 18:39 Tylenol Tab* PO 650 mg Q6H PRN Administration FEVER > 101 Al Hydrox/Mg Hydrox/Simethicone 30 ml 05/03/19 11:15 05/03/19 17:51 Maalox Plus* PO 30 ml Q6H PRN Administration INDIGESTION Alprazolam 3 mg 05/03/19 21:00 05/10/19 21:55 Xanax Tab* PO 3 mg BEDTIME EMILEE Administration Amantadine HCl 100 mg 05/03/19 21:00 05/11/19 08:13 Symmetrel Cap* PO 100 mg BID EMILEE Administration Atorvastatin Calcium 20 mg 05/03/19 21:00 05/10/19 20:57 Lipitor* PO 20 mg 2100 EMILEE Administration Bisacodyl 10 mg 05/03/19 11:15 Dulcolax Supp* [place] DAILY PRN CONSTIPATION Carbidopa/Levodopa 3 tab 05/03/19 14:00 05/11/19 08:11 Sinemet 25/100 Tab(*) PO 3 tab TID EMILEE Administration Docusate Sodium 100 mg 05/03/19 21:00 05/11/19 08:11 Colace Cap* PO 100 mg BID EMILEE Administration Entacapone 200 mg 05/03/19 14:00 05/11/19 08:13 Comtan(Nf) PO 200 mg TID EMILEE Administration Heparin Sodium (Porcine) 5,000 units 05/03/19 21:00 05/11/19 08:14 Heparin Vial(*) SUBCUT Not Given Q12HR EMILEE Hydrocortisone 25 mg 05/05/19 15:59 05/06/19 20:55 Anusol Hc Supp* [place] 25 mg BID PRN Administration hemorrhoids Lactulose 30 ml 05/03/19 11:15 Lactulose* PO Q6H PRN CONSTIPATION Losartan Potassium 25 mg 05/04/19 09:00 05/11/19 08:12 Cozaar Tab* PO 25 mg DAILY EMILEE Administration Magnesium Hydroxide 30 ml 05/03/19 11:15 05/07/19 19:38 Milk Of Magnesia Liq* PO 30 ml Q6H PRN Administration CONSTIPATION Magnesium Oxide 400 mg 05/04/19 09:00 05/11/19 08:11 Magox 400 Tab* PO 400 mg DAILY EMILEE Administration Methocarbamol 750 mg 05/03/19 11:34 05/10/19 15:44 Robaxin Tab* PO 750 mg TID PRN Administration muscle spasm Mineral Oil 30 ml 05/04/19 09:00 05/11/19 08:12 Mineral Oil* PO Not Given DAILY EMILEE Oxycodone/Acetaminophen 1 tab 05/03/19 11:34 05/10/19 20:58 Percocet 5/325 Tab* PO 1 tab Q4H PRN Administration PAIN Oxycodone/Acetaminophen 2 tab 05/05/19 11:53 05/08/19 09:06 Percocet 5/325 Tab* PO 2 tab Q4H PRN Administration PAIN - SEVERE Polyethylene Glycol/Electrolytes 17 gm 05/04/19 09:00 05/11/19 08:12 Miralax* PO 17 gm DAILY EMILEE Administration Senna 2 tab 05/03/19 21:00 05/10/19 20:57 Senokot Tab* PO 2 tab BEDTIME EMILEE Administration Sotalol HCl 80 mg 05/03/19 21:00 05/11/19 08:12 Betapace Tab* PO 80 mg BID EMILEE Administration Vital Signs: Vital Signs Temp Pulse Resp BP Pulse Ox 97.9 F 70 16 124/79 100 05/11/19 05:41 05/11/19 05:41 05/11/19 05:41 05/11/19 05:41 05/11/19 05:41 Lab Results: Laboratory Results - last 24 hr 05/11/19 05/11/19 05:05 06:48 WBC 4.2 RBC 4.19 Hgb 13.2 L Hct 37 L MCV 89 MCH 31 MCHC 35 RDW 13 Plt Count 164 MPV 7.2 L Neut % (Auto) 62.0 Lymph % (Auto) 15.9 [place] % (Auto) 19.9 Eos % (Auto) 1.6 Baso % (Auto) 0.6 Absolute Neuts (auto) 2.6 Absolute Lymphs (auto) 0.7 L Absolute Monos (auto) 0.8 Absolute Eos (auto) 0.1 Absolute Basos (auto) 0.0 Absolute Nucleated RBC 0.0 Nucleated RBC % 0.3 Sodium 134 L Potassium 4.3 Chloride 101 Carbon Dioxide 27 Anion Gap 6 BUN 16 Creatinine 0.83 Est GFR ( Amer) 110.5 Est GFR (Non-Af Amer) 91.3 BUN/Creatinine Ratio 19.3 Glucose 118 H Calcium 9.1 Magnesium 1.8 L Total Bilirubin 0.50 AST 13 ALT 3 L Alkaline Phosphatase 82 Total Protein 6.8 Albumin 3.3 Globulin 3.5 Albumin/Globulin Ratio 0.9 L Exam: GEN: no acute distress. alert and appropriate. LUNGS: Clear to auscultation bilaterally HEART: Regular rate and rhythm ABDOMEN: Soft, + bowel sounds, non-tender, non-distended EXTREMITIES: no edema NEUROLOGIC: Sensation intact. Muscle strength 4+/5 BLE. SPINE: Mepilex dressing intact Assessment/Plan: 1. Lumbar Spinal Stenosis, S/P L3/4 TLIF with revision of L4/5 fusion with PEEK : PT/OT. Brace when OOB. f/u with Dr. Maya in 1 month. Dressing changed to mepilex by neurosurgery 05/09/19. 2. Parkinson's Disease: Comtan/Sinemet/Amantadine 3. History of A Fib, S/P ablation: Betapace 4. History of ICD and pacemaker: stable 5. DVT Prophylaxis: SCDs and TEDs. He is refusing Heparin despite normal platelets. 6. Advanced Directives: Full code. Leticia is hcp. 7. Anxiety: Xanax 8. ITP: Platelets 171 on 05/08. 9. Analgesia: pain medications 10. Estimated LOS: d/c home tomorrow 11. Urine frequency: UA negative 05/09. 12. Hypomagnesemia: continue supplement and f/u with PCP. 05/11/19 08:30
[2019-05-11] MEDS: Methocarbamol TAB* 500 MG PO PRN ×2 (10:35→21:14)
[2019-05-11] MEDS: oxyCODONE/Acetamin 5/325 MG* TAB PO PRN (10:36)
[2019-05-11] MEDS: Acetaminophen TAB* 325 MG PO PRN (21:13)
[2019-05-11] MEDS: Atorvastatin* 20 MG TAB PO SCH (21:14)
[2019-05-11] MEDS: Senna TAB PO SCH (21:16)
[2019-05-11] MEDS: ALPRAZolam TAB* 0.5 MG PO SCH (22:19)
[2019-05-12 05:17] VITALS: BP 124/78
[2019-05-12] MEDS: Mineral Oil, LAXITIVE* 30 ML UDC PO SCH (09:03)
[2019-05-12] MEDS: Polyethylene Glycol 3350* 17 GM PACKET PO SCH (09:03)
[2019-05-12] MEDS: Amantadine CAP* 100 MG PO SCH (09:04)
[2019-05-12] MEDS: Docusate CAP* 100 MG PO SCH (09:05)
[2019-05-12] MEDS: ENTACAPONE 200 MG PO SCH ×2 (09:05→14:22)
[2019-05-12] MEDS: Losartan TAB* 25 MG PO SCH (09:06)
[2019-05-12] MEDS: Magnesium Oxide TAB* 400 MG PO SCH (09:07)
[2019-05-12] MEDS: Sotalol TAB* 80 MG PO SCH (09:07)
[2019-05-12] MEDS: Methocarbamol TAB* 500 MG PO PRN (09:08)
[2019-05-12] MEDS: Carbidopa/Levodop 25/100 MG TAB(*) PO SCH ×2 (09:21→14:23)
[2019-05-12] MEDS: Heparin VIAL(*) 5000 UNITS/ML VIAL (FIVE THOUSAND) SUBCUT SCH (09:23)
[2019-05-12] MEDS: oxyCODONE/Acetamin 5/325 MG* TAB PO PRN (11:29)
--- NOTE | 2019-05-12 22:41 | DS ---
CC: Dr. Connor Gallegos * DISCHARGE SUMMARY: DATE OF ADMISSION: 05/03/19 DATE OF DISCHARGE: 05/12/19 DISCHARGE DIAGNOSES: 1. Status post L3-4 transforaminal lumbar interbody fusion with revision of prior L4-5 fusion with PEEK cages. 2. Parkinson disease. 3. Immune thrombocytopenia. 4. Status post mitral valve replacement with coronary artery bypass grafting. 5. Coronary artery disease. 6. Paroxysmal atrial fibrillation, status post ablation. 7. History of ventricular tachycardia, status post pacemaker placement and ICD in 2016. HISTORY OF ILLNESS AND HOSPITAL COURSE: For complete history of the events leading up to his rehab stay, please see the history and physical dictated by Dr. Kellen Perez on 05/03/19. While on the rehab unit, the patient was largely stable from a medical point of view. He was maintained on his Parkinson 's medications. The patient refused anticoagulation with subcutaneous heparin because of his history of ITP as well as his recent back surgery. The patient continued to use MANOJ stockings and SCDs. The patient was otherwise medically stable. His wounds looked clean. The patient was seen in followup by Dr. Maya on May 09. The patient worked with both physical therapy and occupational therapy and made good gains with both disciplines. With physical therapy at the time of admission, the patient required minimal amount of assistance for transfer, contact guard to min assist to ambulate 60 feet. With occupational therapy at the time of admission, the patient required supervision for upper body dressing, mod assist for lower body dressing, contact guard for toileting, contact guard for toilet transfers. By the time of discharge, the patient was independent in transfers, independent ambulating greater than 150 feet, independent going up and down 10 steps with one rail, independent dressing , independent in toileting, toilet transfers, supervision for tub transfers. The patient was discharged home on 05/12/19. CONDITION AT DISCHARGE: The patient was discharged in stable condition. DISCHARGE DIET: Regular. DISCHARGE MEDICATIONS: Include: 1. Xanax 3 mg at bedtime. 2. Amantadine 100 mg twice a day. 3. Lipitor 20 mg at 9 p.m. 4. Sinemet 25/100 three tablets orally 3 times a day. 5. Comtan 200 mg 3 times a day. 6. Cozaar 25 mg orally daily. 7. Magnesium oxide 400 mg daily. 8. Robaxin 750 mg 3 times a day as needed. 9. The patient also took Tylenol 650 mg every 6 hours as needed. SERVICES AFTER DISCHARGE: Through the visiting nurse service, he will have home nursing and home physical therapy. Follow up with Mike Coulter in the neurosurgery office on May 20. He will also follow up with Dr. Maya on June [address] Connor Gallegos, his primary care doctor. TIME SPENT: Time for this discharge was approximately 50 minutes, greater than half of that was spent with the patient explaining post rehabilitation medications, therapies, and followup appointments. [id number] #: [id number]
== END 2019-05-12 14:30 | disposition home health service (06) | DRG 560 ==
LOC: PMRU 13:38
PROVIDERS: ADMIT Physical Medicine & Rehabilitation; ATTEND Physical Medicine & Rehabilitation
PROC: F07Z5ZZ Bed Mobility Treatment (ICD-10-PCS; principal; 2019-05-03)
PROC: F07Z9ZZ Gait Training/Functional Ambulation Treatment (ICD-10-PCS; 2019-05-03)
PROC: F07Z8ZZ Transfer Training Treatment (ICD-10-PCS; 2019-05-03)
PROC: F08Z0ZZ Bathing/Showering Techniques Treatment (ICD-10-PCS; 2019-05-03)
PROC: F08Z1ZZ Dressing Techniques Treatment (ICD-10-PCS; 2019-05-03)
PROC: F08Z3ZZ Feeding/Eating Treatment (ICD-10-PCS; 2019-05-03)
DX: Z47.89 Encounter for other orthopedic aftercare (principal); I47.2 Ventricular tachycardia; D69.3 Immune thrombocytopenic purpura; G20 Parkinson's disease; I25.10 Atherosclerotic heart disease of native coronary artery without angina pectoris; I48.0 Paroxysmal atrial fibrillation; F32.9 Major depressive disorder, single episode, unspecified; I11.0 Hypertensive heart disease with heart failure; I50.9 Heart failure, unspecified; E78.5 Hyperlipidemia, unspecified; F41.9 Anxiety disorder, unspecified; E83.42 Hypomagnesemia; R35.0 Frequency of micturition; K59.00 Constipation, unspecified; Z95.2 Presence of prosthetic heart valve; Z95.810 Presence of automatic (implantable) cardiac defibrillator; Z95.1 Presence of aortocoronary bypass graft; Z79.1 Long term (current) use of non-steroidal anti-inflammatories (NSAID); Z79.899 Other long term (current) drug therapy; Z82.49 Family history of ischemic heart disease and other diseases of the circulatory system; Z83.3 Family history of diabetes mellitus; Z80.1 Family history of malignant neoplasm of trachea, bronchus and lung
CPT/HCPCS: 36415; 80053; 81003; 83735; 85025; A9270-GY; J1644

== ENCOUNTER 2019-05-21 10:29 | Emergency (ER) | payer MEDICARE, BC ==
[2019-05-21 11:07] LABS: ABS Eosinophils 0.1 10^3/ul (0-0.6); ABS Lymphocytes 0.6 10^3/ul (1.0-4.8); ABS Monocytes 0.6 10^3/ul (0-0.8); Hematocrit 40 % (42-52); Hemoglobin 13.4 g/dL (14.0-18.0); Lymphocyte % 11.6 %; Mean Corpuscular HGB Conc 34 g/dL (31-36); Mean Corpuscular Hemoglobin 30 pg (27-31); Mean Corpuscular Volume 90 fL (80-94); Platelet Count 170 10^3/uL (150-450); Red Blood Count 4.41 10^6 /uL (4.18-5.48); Red Cell Distribution Width 13 % (10-15); White Blood Count 5.3 10^3/uL (3.5-10.8)
--- NOTE | 2019-05-21 11:29 | ED ---
Dizziness - HPI Summary HPI Summary: Patient is a 73 y old M presenting to the [facility] accompanied by with a chief complaint of a dizziness and vomiting that occurred at 0930 this morning, 05/21/19. Symptoms are aggravated by nothing. Symptoms are alleviated by nothing. Patient reports a surgery 3 weeks ago where hardware that was put in 2009 was removed and L3, L4, and L5 were fused. Patient reports to have taken Bactrim and his other normal medications this morning at 0900 and after 30 minutes had an episode of diaphoresis before he experienced dizziness, lightheadedness, and vomiting that lasted for 15 minutes while he was at rest. Patients reports that visiting nurse came to their house this morning at 0930 after his episode of dizziness and vomiting and saw that he was very pale and could not get a BP, leading to his arrival to the [facility]. Patients is concerned that the symptoms arose because the patient did not eat enough today before taking medications. Patient reports to have had constipation due to Parkinsons and Percocet but has had 2 episodes of diarrhea in the past possibly due to the Bactrim and another episode this morning, 05/21/19. Patient reports to have seen Dr. Maya, neuro surgeon, 05/18/19, who saw that his incision on his back post-surgery was scabbing over well but had some discharge in the lower region where he sits. Patients reports that the doctor was concerned that the lack of air in the bandaging and brace caused this, so they have changed the dressings to those more conducive of air flow. Patient reports that he takes 2-3 doses of Percocet (5 mg) a day which he took early this morning at 0400 and muscle relaxants which he took a dose of last night. Patient prefers [facility]den[facility], at [facility]. Patient denies CP, chest pressure, arm or jaw pain, SOB, abdominal pain, fever, chills, erythema of eyes, sore throat, cough, dysuria, hematuria, myalgia, edema, or rash. - History Of Current Complaint Chief Complaint: EDDizziness Stated Complaint: LOW PULSE/CANT GET BP PER PT Time Seen by Provider: 05/21/19 10:52 Hx Obtained From: Patient, Family/Talent Advisor - Onset/Duration: Suddenly Timing: Minutes - 15 minute episode Severity Initially: Moderate Severity Currently: Mild Character: Lightheaded, Dizzy Aggravating Factor(s): Nothing Alleviating Factor(s): Nothing Associated Signs And Symptoms: Positive: Nausea, Vomiting, Diarrhea, Diaphoresis , Change In Medication - new use of Bactrim, Other: - NEGATIVE: abdominal pain, fever, erythema of eyes, sore throat, cough, dysuria, hematuria, myalgia, edema , or rash. Negative: Chest Pain, SOB, Fever, Chills - Allergies/Home Medications Allergies/Adverse Reactions: Allergies Allergy/AdvReac Type Severity Reaction Status Date / Time sulfamethoxazole Allergy Diarrhea Verified 05/21/19 14:39 [From Bactrim] trimethoprim [From Bactrim] Allergy Diarrhea Verified 05/21/19 14:39 Home Medications: Home Medications Cannabidiol (CBD) Extract (NF) [Epidiolex (NF)] 100 mg PO BEDTIME 05/21/19 [ History Confirmed 05/21/19] Docusate CAP* [Colace Cap*] 100 mg PO BID 05/21/19 [History Confirmed 05/21/19] Entacapone (NF) [Comtan (NF)] 200 mg PO TID 05/21/19 [History Confirmed 05/21/19 ] Methocarbamol TAB* [Robaxin 500 MG TAB*] 750 mg PO Q6HR PRN 05/21/19 [History Confirmed 05/21/19] Polyethylene Glycol 3350* [Miralax*] 17 gm PO DAILY PRN 05/21/19 [History Confirmed 05/21/19] Rosuvastatin (NF) [Crestor (NF)] 10 mg PO BEDTIME 05/21/19 [History Confirmed ] Sotalol TAB* [Betapace 80 MG TAB*] 80 mg PO BID 05/21/19 [History Confirmed 09/29] PMH/Surg Hx/FS Hx/Imm Hx Endocrine/Hematology History: Denies: Hx Diabetes Cardiovascular History: Reports: Hx Angina - many years ago, Hx Cardiomegaly - SLIGHTLY ENLARGED, Hx Congestive Heart Failure, Hx Coronary Artery Disease - STENTS-1985, 2002, 2004;- 2010- [facility], Hx Hypertension, Hx Pacemaker/ICD, Hx Valvular Heart Disease, Other Cardiovascular Problems/Disorders - a-fib Denies: Hx Peripheral Vascular Disease Respiratory History: Reports: Hx Sleep Apnea - mild- no CPAP, Other Respiratory Problems/Disorders - [place] Denies: Hx Asthma, Hx Chronic Obstructive Pulmonary Disease (COPD) GI History: Reports: Hx Gastroesophageal Reflux Disease, Hx Hiatal Hernia - repaired in 1998, Other GI Disorders - constipation, urinary frequency History: Reports: Other Problems/Disorders - BPH Denies: Hx Dialysis, Hx Renal Disease Musculoskeletal History: Reports: Hx Arthritis - RIGHT GREAT TOE- FUSION DONE- 2009, Hx Tendonitis - achilles tendon -resolved Sensory History: Reports: Hx Cataracts - BILATERAL, Hx Contacts or Glasses Denies: Hx Hearing Aid Opthamlomology History: Reports: Hx Cataracts - BILATERAL, Hx Contacts or Glasses Neurological History: Reports: Hx Nerve Disease - parkinsons, 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 CARDIAC [id number],2002,2004(OK TO SCAN PER DR MARTINS). RIGHT GREAT TOE FUSION. 2008-L3 -4 FUSION. HERNIA REPAIR BILATERAL-1998. DEFIBRILLATOR. CATARACTS. 2019- L3_ L5 fusion, TLIF Hx Anesthesia Reactions: No - Immunization History Immunizations Up to Date: Yes Infectious Disease History: No Infectious Disease History: Denies: Traveled Outside the [place] in Last 30 Days - Family History Known Family History: Positive: Hypertension - Social History Alcohol Use: Daily Alcohol Amount: glass of wine every other day Hx Substance Use: No Substance Use Type: Reports: None Substance Use Comment - Amount & Last Used: rarely since 2005 Hx Tobacco Use: No Smoking Status (MU): Never Smoked Tobacco Review of Systems Positive: Skin Diaphoresis, Other - new use of Bactrim. Negative: Fever, Chills Negative: Erythema Negative: Sore Throat Negative: Chest Pain Negative: Shortness Of Breath, Cough Positive: Vomiting, Diarrhea, Nausea. Negative: Abdominal Pain Negative: dysuria, hematuria Negative: Myalgia - no arm or jaw pain, Edema Negative: Rash Neurological: Other - dizziness and lightheadedness Positive: Syncope - near syncope All Other Systems Reviewed And Are Negative: Yes Physical Exam - Summary Physical Exam Summary: Constitutional: Well-developed, Well-nourished, Alert. (-) Distressed Skin: Midline incision draining small amount of serous fluid at most inferior aspect, no surrounding erythema, no induration or fluctuance, Warm, Dry HENT: Normocephalic; Atraumatic Eyes: Conjunctiva normal Neck: Musculoskeletal ROM normal neck. (-) JVD, (-) Stridor, (-) Tracheal deviation Cardio: Rhythm regular, rate normal, Heart sounds normal; Intact distal pulses; The pedal pulses are 2+ and symmetric. Radial pulses are 2+ and symmetric. (-) Murmur Pulmonary/Chest wall: Effort normal. (-) Respiratory distress, (-) Wheezes, (-) Rales Abd: Soft, (-) tenderness, (-) Distension, (-) Guarding, (-) Rebound Musculoskeletal: (-) Edema Lymph: (-) Cervical adenopathy Neuro: Alert, Oriented x3, Lower extremity strength 5/5 Psych: Mood and affect Normal Rectal Exam: Brown stool, no silvestre blood Triage Information Reviewed: Yes Vital Signs On Initial Exam: Initial Vitals Temp Pulse Resp BP Pulse Ox 96.0 F 70 18 91/60 99 05/21/19 10:31 05/21/19 10:31 05/21/19 10:31 05/21/19 10:31 05/21/19 10:31 Vital Signs Reviewed: Yes Diagnostics - Vital Signs Vital Signs Temp Pulse Resp BP Pulse Ox 05/21/19 10:40 70 98 05/21/19 10:38 70 101/63 99 05/21/19 10:31 96.0 F 70 18 91/60 99 - Laboratory Lab Results: Lab Results 05/21/19 Range/Units 11:02 WBC 5.3 (3.5-10.8) 10^3/uL RBC 4.41 (4.18-5.48) 10^6 /uL Hgb 13.4 L (14.0-18.0) g/dL Hct 40 L (42-52) % MCV 90 (80-94) fL MCH 30 (27-31) pg MCHC 34 (31-36) g/dL RDW 13 (10-15) % Plt Count 170 (150-450) 10^3/uL MPV 7.0 L (7.4-10.4) fL Neut % (Auto) 75.9 % Lymph % (Auto) 11.6 % Daggett % (Auto) 10.9 % Eos % (Auto) 1.0 % Baso % (Auto) 0.6 % Absolute Neuts (auto) 4.0 (1.5-7.7) 10^3/ul Absolute Lymphs (auto) 0.6 L (1.0-4.8) 10^3/ul Absolute Monos (auto) 0.6 (0-0.8) 10^3/ul Absolute Eos (auto) 0.1 (0-0.6) 10^3/ul Absolute Basos (auto) 0.0 (0-0.2) 10^3/ul Absolute Nucleated RBC 0.0 10^3/ul Nucleated RBC % 0.0 Result Diagrams: 05/21/19 11:02 05/21/19 11:02 Lab Statement: Any lab studies that have been ordered have been reviewed, and results considered in the medical decision making process. - Radiology Chest X-Ray Radiology Interpretation Completed By: Radiologist Summary of Radiographic Findings: Per radiologist, NO ACTIVE CARDIOPULMONARY DISEASE. ED physician has reviewed this report. - EKG 1113 Cardiac Rate: NL - 70 BPM EKG Rhythm: Sinus Rhythm EKG Comparison: No Significant Change - No real EKG changes since 04/23/2019 because biphasic T-waves are present on EKG but are not present on 04/30/19 EKG. Summary of EKG Findings: 70 BPM, Sinus Rhythem, No STEMI, Biphasic T-waves V4-V6 Re-Evaluation - Re-Evaluation First Eval Re-Evaluation Time: 14:32 Comment: Unable to provide stool sample. Will be sent home with a stool cup. Physician offered to change antibiotics but patient chose to discontinue his Bactrim and will call Dr. Henning for guidance on antibotic. Physician recommended consuming a lot of liquids with electrolytes. Second Eval Re-Evaluation Time: 14:40 Comment: I discussed discharge plan with the patient. Dizzy Course/Dx - Course Course Of Treatment: Patient is a 73 y old M presenting to [facility] accompanied by with a chief complaint of dizziness and vomiting that occurred at 0920 this morning, 05/21/19. Patient reports to have taken Bactrim and other medications this morning at 0900 and after 30 minutes had an episode of diaphoresis before he experienced dizziness, lightheadedness, and vomiting that lasted for 15 minutes during which he was at rest. Patients reports patient has had 2 episodes of diarrhea in the past possibly due to the Bactrim and another episode this morning, 05/21/19. Patient denies CP, chest pressure, arm or jaw pain, SOB, abdominal pain, fever, chills, erythema of eyes, sore throat, cough, nausea, dysuria, hematuria, myalgia, edema, or rash. Physical exam reveals midline incision draining small amount of serous fluid at most inferior aspect, no surrounding erythema, no induration or fluctuance, lower extremity strength 5/5. Rectal exam reveals brown stool with no silvestre blood. Tests show no abnormalities except for Hgb 13.4, Hct 40, MPV 7.0, Absolute Lymphs 0.6, Glucose 133, AST 12, ALT <3, Alkaline Phosphatase 124, and Albumin/ Globulin Ratio 0.9. Patient was given carbidopa/Levodopa 3 tab, Entacapone 200 mg, and saline in the ED. Chest X-Ray reveals no active cardiopulmonary disease. EKG reveals 70 BPM, sinus rhythm, no STEMI, and biphasic T-waves V4- V6. In the blood work, there were no significant electrolyte changes, although the patient has been unable to provide a stool sample. I suggested to the patient to drink plenty of liquids with electrolytes, and he will be sent home with a stool cup. I offered to change antibiotics but patient chose to discontinue his Bactrim, and he will call Dr. Henning for guidance on antibotics. PI additionally suspect near syncope due to adverse effect of Bactrim and diarrhea. He will follow up with Dr. Maya and his PCP. I discussed discharge with the patient. Patient agrees with plan. - Diagnoses Provider Diagnoses: Near syncope, Adverse effect of antibiotic Discharge - Sign-Out/Discharge Documenting (check all that apply): Patient Departure - discharge Patient Received Moderate/Deep Sedation with Procedure: No - Discharge Plan Condition: Stable Disposition: HOME Patient Education Materials: Acute Diarrhea (ED), Near Syncope (ED) Referrals: Bo Maya MD [Medical Doctor] - 3 Days Connor Gallegos MD [Primary Care Provider] - 3 Days Additional Instructions: Follow up with Dr. Maya in 2-3 days. Follow up with primary care provider in 2-3 days. Discontinue Bactrim. Return to ED if symptoms worsen. - Billing Disposition and Condition Condition: STABLE Disposition: Home - Attestation Statements Document Initiated by Scribe: Yes Documenting Scribe: Zora Mendez Provider For Whom Scribe is Documenting (Include Credential): Kb Maza MD Scribe Attestation: Zora Mendez, scribed for Kb Maza MD on 05/21/19 at [id number]. Status of Scribe Document: Ready
[2019-05-21 11:32] LABS: ALT < 3 U/L (7-52); AST 12 U/L (13-39); Albumin 3.5 g/dL (3.2-5.2); Albumin/Globulin Ratio 0.9 (1-3); Alkaline Phosphatase 124 U/L (34-104); Anion Gap 3 mmol/L (2-11); BUN/Creatinine Ratio 17.1 (8-20); Blood Urea Nitrogen 19 mg/dL (6-24); CO2 Carbon Dioxide 31 mmol/L (22-32); Calcium 9.6 mg/dL (8.6-10.3); Chloride 102 mmol/L (101-111); EGFR Non-African American 65.3 (>60); Globulin 3.8 g/dL (2-4); Glucose 133 mg/dL (70-100); Magnesium 1.9 mg/dL (1.9-2.7); Potassium 4.5 mmol/L (3.5-5.0); Sodium 136 mmol/L (135-145); Total Protein 7.3 g/dL (6.4-8.9)
[2019-05-21 11:42] LABS: TSH (Thyroid Stimulating Horm) 0.82 mcIU/mL (0.34-5.60)
[2019-05-21] MEDS ORDERED: Carbidopa/Levodop 25/100 MG TAB(*) PO ONE (11:42)
[2019-05-21] MEDS ORDERED: Entacapone (NF) 200 MG TAB PO ONE (11:43)
[2019-05-21] MEDS ORDERED: NS 0.9% 500 ML* 500 ML IV ONE (11:51)
[2019-05-21 15:00] VITALS: BP 104/68
== END 2019-05-21 14:58 | disposition home or self-care (01) ==
LOC: ED 10:29
DX: R55 Syncope and collapse (principal); T36.95XA Adverse effect of unspecified systemic antibiotic, initial encounter; I50.9 Heart failure, unspecified; I11.0 Hypertensive heart disease with heart failure; I25.119 Atherosclerotic heart disease of native coronary artery with unspecified angina pectoris; Z95.810 Presence of automatic (implantable) cardiac defibrillator; K21.9 Gastro-esophageal reflux disease without esophagitis; Z88.1 Allergy status to other antibiotic agents; Z88.2 Allergy status to sulfonamides; Z79.899 Other long term (current) drug therapy
CPT/HCPCS: 36415; 71045; 80053; 83605; 83735; 84443; 84484; 85025; 93005; 96360; 99283; A9270-GY

== ENCOUNTER 2022-12-03 12:26 | Inpatient (IN) ==
[2022-12-03] MEDS ORDERED: NS 0.9% 500 ml BAG 500 ML IV ONE ×2 (12:32→17:41)
[2022-12-03 13:23] LABS: ABS Eosinophils 0.1 10^3/ul (0-0.6); ABS Lymphocytes 0.7 10^3/ul (1.0-4.8); ABS Monocytes 1.4 10^3/ul (0-0.8); ABS Neutrophils 7.2 10^3/ul (1.5-7.7); Eosinophil % 0.6 %; Hematocrit 37 % (42-52); Hemoglobin 13.2 g/dL (14.0-18.0); Lymphocyte % 7.5 %; Mean Corpuscular HGB Conc 35 g/dL (31-36); Mean Corpuscular Hemoglobin 31 pg (27-31); Mean Corpuscular Volume 87 fL (80-94); Mean Platelet Volume 7.4 fL (7.4-10.4); Platelet Count 162 10^3/uL (150-450); Red Cell Distribution Width 13 % (10-15); White Blood Count 9.4 10^3/uL (3.5-10.8)
[2022-12-03 13:54] LABS: Albumin 3.1 g/dL (3.2-5.2); Albumin/Globulin Ratio 1.4 (1-3); C Reactive Protein 164.25 mg/L (<8.01); Calcium 8.1 mg/dL (8.6-10.3); Creatinine, Serum 0.89 mg/dL (0.67-1.17); Globulin 2.2 g/dL (2-4); Magnesium 1.8 mg/dL (1.9-2.7); Phosphorus 3.2 mg/dL (2.5-5.0); Potassium 3.9 mmol/L (3.5-5.0); Total Bilirubin 1.2 mg/dL (0.2-1.0); Total Protein 5.3 g/dL (6.4-8.9); eGFR CKD-EPI 89.4 (>60)
[2022-12-03 14:36] LABS: Urine Appearance Clear; Urine Bilirubin Negative (Negative); Urine Blood Negative (Negative); Urine Color Amber; Urine Glucose Negative (Negative); Urine Ketones Trace (Negative); Urine Nitrite Negative (Negative); Urine Protein Negative (Negative); Urine Specific Gravity 1.015 (1.002-1.030); Urine Urobilinogen Positive (Negative)
[2022-12-03 15:08] LABS: High Sensitivity Troponin 1 Hr 10 pg/mL (<20)
[2022-12-03 16:18] LABS: Uric Acid 2.9 mg/dL (4.4-7.6)
[2022-12-03 16:29] LABS: TSH Ultra Thyroid Stim Horm 1.38 mcIU/mL (0.34-5.60)
[2022-12-03 17:41] LABS: Erythrocyte Sed Rate 50 mm/Hr (0-19)
[2022-12-03 19:22] LABS: Vitamin D Total 25(OH) 40.2 ng/mL (20-50)
[2022-12-03] MEDS: fentaNYL Patch Check Q Shift NOTE FOLLOW UP SCH (19:47)
[2022-12-03] MEDS: DULoxetine DR 60 mg CAP PO SCH (19:48)
[2022-12-03] MEDS ORDERED: Heparin 5000 UNITS/ML 1 mL VIAL SUBCUT SCH (21:00)
[2022-12-03] MEDS: NS 0.9% 1000 ml BAG 1,000 ML IV SCH (21:11)
[2022-12-03] MEDS: Carbidopa/Levodop 25/100 MG TAB PO SCH (21:14)
[2022-12-03] MEDS: ENTACAPONE 200 MG PO SCH (21:18)
[2022-12-03] MEDS: fentaNYL PATCH 12 MCG/HR 1 PATCH TRANSDERM SCH (22:34)
[2022-12-04 06:28] LABS: Hematocrit 35 % (42-52); Hemoglobin 11.8 g/dL (14.0-18.0); Mean Corpuscular HGB Conc 34 g/dL (31-36); Mean Corpuscular Hemoglobin 30 pg (27-31); Mean Corpuscular Volume 88 fL (80-94); Mean Platelet Volume 7.4 fL (7.4-10.4); Platelet Count 205 10^3/uL (150-450); Red Blood Count 3.98 10^6 /uL (4.18-5.48); Red Cell Distribution Width 13 % (10-15)
[2022-12-04 06:29] LABS: ABS Eosinophils 0.1 10^3/ul (0-0.6); ABS Lymphocytes 0.8 10^3/ul (1.0-4.8); ABS Monocytes 1.6 10^3/ul (0-0.8); ABS Neutrophils 6.5 10^3/ul (1.5-7.7); Eosinophil % 0.7 %; Lymphocyte % 9.2 %
[2022-12-04 06:48] LABS: Calcium 7.5 mg/dL (8.6-10.3); Creatinine, Serum 0.79 mg/dL (0.67-1.17); Magnesium 1.8 mg/dL (1.9-2.7); eGFR CKD-EPI 92.6 (>60)
[2022-12-04] MEDS: NS 0.9% 1000 ml BAG 1,000 ML IV SCH (07:09)
[2022-12-04] MEDS: fentaNYL Patch Check Q Shift NOTE FOLLOW UP SCH ×2 (07:25→18:46)
[2022-12-04] MEDS ORDERED: CALCIUM GLUCONATE 1GM/50ML NS 1 GM/50 ML BAG IV ONE (08:30)
[2022-12-04] MEDS: Carbidopa/Levodop 25/100 MG TAB PO SCH ×3 (08:52→20:31)
[2022-12-04] MEDS: Fluticasone NASAL SPRAY 50MCG 16 gm SPRAY BTL INTRANASAL SCH (08:53)
[2022-12-04] MEDS: Polyethylene Glycol 3350 17 GM PACKET PO SCH (08:53)
[2022-12-04] MEDS: ENTACAPONE 200 MG PO SCH ×3 (10:02→20:35)
[2022-12-04] MEDS: DULoxetine DR 60 mg CAP PO SCH (14:41)
[2022-12-04] MEDS: oxyCODONE/Acetamin 5/325 mg TAB PO PRN (15:11)
[2022-12-05 06:11] LABS: Hematocrit 37 % (42-52); Hemoglobin 12.6 g/dL (14.0-18.0); Mean Corpuscular HGB Conc 35 g/dL (31-36); Mean Corpuscular Hemoglobin 31 pg (27-31); Mean Corpuscular Volume 88 fL (80-94); Mean Platelet Volume 6.9 fL (7.4-10.4); Platelet Count 252 10^3/uL (150-450); Red Blood Count 4.14 10^6 /uL (4.18-5.48); Red Cell Distribution Width 13 % (10-15); White Blood Count 9.9 10^3/uL (3.5-10.8)
[2022-12-05 06:14] LABS: ABS Lymphocytes 0.5 10^3/ul (1.0-4.8); ABS Monocytes 1.6 10^3/ul (0-0.8); ABS Neutrophils 7.8 10^3/ul (1.5-7.7); Eosinophil % 0.4 %; Lymphocyte % 5.2 %
[2022-12-05 06:48] LABS: Albumin 2.8 g/dL (3.2-5.2); Albumin/Globulin Ratio 1.3 (1-3); Calcium 7.7 mg/dL (8.6-10.3); Creatinine, Serum 0.76 mg/dL (0.67-1.17); Globulin 2.2 g/dL (2-4); Magnesium 1.9 mg/dL (1.9-2.7); Potassium 4.3 mmol/L (3.5-5.0); Total Bilirubin 1.1 mg/dL (0.2-1.0); eGFR CKD-EPI 93.7 (>60)
[2022-12-05] MEDS: fentaNYL Patch Check Q Shift NOTE FOLLOW UP SCH ×2 (06:50→19:21)
[2022-12-05] MEDS: Fluticasone NASAL SPRAY 50MCG 16 gm SPRAY BTL INTRANASAL SCH (10:31)
[2022-12-05] MEDS: Polyethylene Glycol 3350 17 GM PACKET PO SCH (10:31)
[2022-12-05] MEDS: ENTACAPONE 200 MG PO SCH ×3 (10:31→20:24)
[2022-12-05] MEDS: Carbidopa/Levodop 25/100 MG TAB PO SCH ×3 (10:31→20:22)
[2022-12-05 12:27] LABS: C Reactive Protein 150.11 mg/L (<8.01)
[2022-12-05] MEDS: DULoxetine DR 60 mg CAP PO SCH (13:46)
[2022-12-05 14:53] LABS: Erythrocyte Sed Rate 53 mm/Hr (0-19)
[2022-12-05 15:17] LABS: Activated Partial Thrombo Time 32.9 seconds (26.0-38.0); INR 1.35 (0.88-1.18)
[2022-12-05] MEDS: oxyCODONE/Acetamin 5/325 mg TAB PO PRN (17:49)
[2022-12-06 05:54] LABS: Hematocrit 37 % (42-52); Hemoglobin 12.4 g/dL (14.0-18.0); Mean Corpuscular HGB Conc 34 g/dL (31-36); Mean Corpuscular Hemoglobin 30 pg (27-31); Mean Corpuscular Volume 88 fL (80-94); Platelet Count 252 10^3/uL (150-450); Red Cell Distribution Width 13 % (10-15)
[2022-12-06 06:13] LABS: Calcium 7.9 mg/dL (8.6-10.3); Creatinine, Serum 0.77 mg/dL (0.67-1.17); Magnesium 1.9 mg/dL (1.9-2.7); Potassium 4.5 mmol/L (3.5-5.0); eGFR CKD-EPI 93.4 (>60)
[2022-12-06] MEDS: fentaNYL Patch Check Q Shift NOTE FOLLOW UP SCH ×2 (07:04→19:13)
[2022-12-06 07:40] LABS: ABS Eosinophils 0.1 10^3/ul (0-0.6); ABS Lymphocytes 0.7 10^3/ul (1.0-4.8); ABS Monocytes 1.6 10^3/ul (0-0.8); ABS Neutrophils 7.6 10^3/ul (1.5-7.7); Eosinophil % 0.6 %; Lymphocyte % 6.6 %
[2022-12-06] MEDS: Polyethylene Glycol 3350 17 GM PACKET PO SCH (08:40)
[2022-12-06] MEDS: Fluticasone NASAL SPRAY 50MCG 16 gm SPRAY BTL INTRANASAL SCH (08:41)
[2022-12-06] MEDS: ENTACAPONE 200 MG PO SCH ×3 (08:46→21:00)
[2022-12-06] MEDS: Carbidopa/Levodop 25/100 MG TAB PO SCH ×3 (08:46→21:00)
[2022-12-06] MEDS ORDERED: methylPREDNISolone SOD 125 mg 250 MG in NS 0.9% 100 ml BAG 100 ML IV ONE (10:15)
[2022-12-06] MEDS: DULoxetine DR 60 mg CAP PO SCH (14:33)
[2022-12-06] MEDS: fentaNYL PATCH 12 MCG/HR 1 PATCH TRANSDERM SCH (21:01)
[2022-12-07 05:45] LABS: ABS Lymphocytes 0.5 10^3/ul (1.0-4.8); ABS Monocytes 0.2 10^3/ul (0-0.8); ABS Neutrophils 6.8 10^3/ul (1.5-7.7); Hematocrit 37 % (42-52); Hemoglobin 12.5 g/dL (14.0-18.0); Lymphocyte % 6.3 %; Mean Corpuscular HGB Conc 34 g/dL (31-36); Mean Corpuscular Hemoglobin 30 pg (27-31); Mean Corpuscular Volume 87 fL (80-94); Mean Platelet Volume 6.8 fL (7.4-10.4); Platelet Count 248 10^3/uL (150-450); Red Blood Count 4.22 10^6 /uL (4.18-5.48); Red Cell Distribution Width 13 % (10-15); White Blood Count 7.5 10^3/uL (3.5-10.8)
[2022-12-07 06:10] LABS: AST 13 U/L (13-39); Albumin 2.8 g/dL (3.2-5.2); Albumin/Globulin Ratio 1.2 (1-3); Alkaline Phosphatase 64 U/L (35-149); Anion Gap 2 mmol/L (2-11); Blood Urea Nitrogen 14 mg/dL (6-24); CO2 Carbon Dioxide 30 mmol/L (22-32); Calcium 7.9 mg/dL (8.6-10.3); Chloride 102 mmol/L (101-111); Creatinine, Serum 0.66 mg/dL (0.67-1.17); Globulin 2.4 g/dL (2-4); Glucose 274 mg/dL (70-100); Magnesium 2.1 mg/dL (1.9-2.7); Potassium 4.6 mmol/L (3.5-5.0); Sodium 134 mmol/L (135-145); Total Protein 5.2 g/dL (6.4-8.9); eGFR CKD-EPI 97.8 (>60)
[2022-12-07 06:16] LABS: ALT < 3 U/L (7-52)
[2022-12-07] MEDS: fentaNYL Patch Check Q Shift NOTE FOLLOW UP SCH ×2 (07:06→18:50)
[2022-12-07] MEDS ORDERED: methylPREDNISolone SOD SUCC 1000 MG ML VIAL IVPB ONE (08:42)
[2022-12-07] MEDS: Polyethylene Glycol 3350 17 GM PACKET PO SCH (08:56)
[2022-12-07] MEDS: Fluticasone NASAL SPRAY 50MCG 16 gm SPRAY BTL INTRANASAL SCH (08:56)
[2022-12-07] MEDS: Carbidopa/Levodop 25/100 MG TAB PO SCH ×3 (08:58→21:13)
[2022-12-07] MEDS: ENTACAPONE 200 MG PO SCH ×3 (08:58→21:13)
[2022-12-07] MEDS ORDERED: methylPREDNISolone SOD SUCC 1,000 MG in NS 0.9% 250 ml 250 ML IVPB ONE (10:00)
[2022-12-07] MEDS: Cholecalciferol (VIT D3) 1,000 unit TAB PO SCH (10:13)
[2022-12-07] MEDS: DULoxetine DR 60 mg CAP PO SCH (13:55)
[2022-12-08 06:35] LABS: ABS Lymphocytes 0.6 10^3/ul (1.0-4.8); ABS Monocytes 0.4 10^3/ul (0-0.8); ABS Neutrophils 13.4 10^3/ul (1.5-7.7); Hematocrit 37 % (42-52); Hemoglobin 12.3 g/dL (14.0-18.0); Lymphocyte % 4.3 %; Mean Corpuscular HGB Conc 34 g/dL (31-36); Mean Corpuscular Hemoglobin 29 pg (27-31); Mean Corpuscular Volume 87 fL (80-94); Mean Platelet Volume 7.1 fL (7.4-10.4); Platelet Count 301 10^3/uL (150-450); Red Blood Count 4.21 10^6 /uL (4.18-5.48); Red Cell Distribution Width 13 % (10-15); White Blood Count 14.5 10^3/uL (3.5-10.8)
[2022-12-08 07:13] LABS: Albumin 2.9 g/dL (3.2-5.2); Albumin/Globulin Ratio 1.3 (1-3); C Reactive Protein 59.09 mg/L (<8.01); Calcium 7.9 mg/dL (8.6-10.3); Creatinine, Serum 0.72 mg/dL (0.67-1.17); Globulin 2.3 g/dL (2-4); Magnesium 2.1 mg/dL (1.9-2.7); Potassium 4.5 mmol/L (3.5-5.0); Total Bilirubin 0.5 mg/dL (0.2-1.0); Total Protein 5.2 g/dL (6.4-8.9); eGFR CKD-EPI 95.3 (>60)
[2022-12-08] MEDS: fentaNYL Patch Check Q Shift NOTE FOLLOW UP SCH ×2 (07:42→19:08)
[2022-12-08] MEDS: Carbidopa/Levodop 25/100 MG TAB PO SCH ×3 (08:13→20:40)
[2022-12-08] MEDS: ENTACAPONE 200 MG PO SCH ×3 (08:15→20:40)
[2022-12-08] MEDS: Cholecalciferol (VIT D3) 1,000 unit TAB PO SCH (08:15)
[2022-12-08] MEDS: Fluticasone NASAL SPRAY 50MCG 16 gm SPRAY BTL INTRANASAL SCH (08:16)
[2022-12-08] MEDS: Polyethylene Glycol 3350 17 GM PACKET PO SCH ×2 (08:16→20:44)
[2022-12-08] MEDS: DULoxetine DR 60 mg CAP PO SCH (14:15)
[2022-12-08] MEDS: oxyCODONE/Acetamin 5/325 mg TAB PO PRN (20:40)
[2022-12-09] MEDS: fentaNYL Patch Check Q Shift NOTE FOLLOW UP SCH (06:58)
[2022-12-09] MEDS: Fluticasone NASAL SPRAY 50MCG 16 gm SPRAY BTL INTRANASAL SCH (08:19)
[2022-12-09] MEDS: Carbidopa/Levodop 25/100 MG TAB PO SCH ×2 (08:20→13:35)
[2022-12-09] MEDS: ENTACAPONE 200 MG PO SCH ×2 (08:20→13:35)
[2022-12-09] MEDS: Polyethylene Glycol 3350 17 GM PACKET PO SCH (08:20)
[2022-12-09] MEDS: Cholecalciferol (VIT D3) 1,000 unit TAB PO SCH (08:20)
[2022-12-09 12:23] VITALS: BP 131/77
== END 2022-12-09 13:57 | DRG 641 ==
LOC: ED 12:26 → EDHOLD 12:26 → MED 20:13 → SUATTDRO 12-04 16:00
PROVIDERS: ADMIT Internal Medicine; ATTEND Internal Medicine Hematology & Oncology

== ENCOUNTER 2022-12-09 08:50 | Inpatient (IN) ==
[2022-12-09] MEDS ORDERED: oxyCODONE/Acetamin 5/325 mg TAB PO PRN (10:02)
[2022-12-09] MEDS: Enoxaparin 40 MG/0.4 ML SYR SUBCUT SCH (14:59)
[2022-12-09] MEDS: Carbidopa/Levodop 25/100 MG TAB PO SCH ×2 (15:06→21:23)
[2022-12-09] MEDS: DULoxetine DR 60 mg CAP PO SCH (15:17)
[2022-12-09] MEDS: fentaNYL Patch Check Q Shift NOTE FOLLOW UP SCH ×2 (15:18→21:16)
[2022-12-09] MEDS: fentaNYL PATCH 12 MCG/HR 1 PATCH TRANSDERM SCH (21:10)
[2022-12-09] MEDS: ENTACAPONE 200 MG PO SCH (21:22)
[2022-12-10 06:50] LABS: ABS Eosinophils 0.1 10^3/ul (0-0.6); ABS Lymphocytes 1.1 10^3/ul (1.0-4.8); ABS Neutrophils 5.6 10^3/ul (1.5-7.7); Eosinophil % 0.7 %; Hematocrit 39 % (42-52); Hemoglobin 13.1 g/dL (14.0-18.0); Lymphocyte % 14.2 %; Mean Corpuscular HGB Conc 34 g/dL (31-36); Mean Corpuscular Hemoglobin 30 pg (27-31); Mean Corpuscular Volume 88 fL (80-94); Mean Platelet Volume 6.9 fL (7.4-10.4); Nucleated Red Blood Cells % 0.1; Platelet Count 289 10^3/uL (150-450); Red Blood Count 4.45 10^6 /uL (4.18-5.48); Red Cell Distribution Width 13 % (10-15); White Blood Count 7.7 10^3/uL (3.5-10.8)
[2022-12-10] MEDS: fentaNYL Patch Check Q Shift NOTE FOLLOW UP SCH ×4 (07:08→23:14)
[2022-12-10 07:09] LABS: Albumin/Globulin Ratio 1.3 (1-3); Calcium 8.4 mg/dL (8.6-10.3); Creatinine, Serum 0.82 mg/dL (0.67-1.17); Globulin 2.3 g/dL (2-4); Potassium 4.4 mmol/L (3.5-5.0); Total Bilirubin 0.6 mg/dL (0.2-1.0); Total Protein 5.3 g/dL (6.4-8.9); eGFR CKD-EPI 91.6 (>60)
[2022-12-10] MEDS: ENTACAPONE 200 MG PO SCH ×3 (09:18→19:59)
[2022-12-10] MEDS: Cholecalciferol (VIT D3) 1,000 unit TAB PO SCH (09:19)
[2022-12-10] MEDS: Carbidopa/Levodop 25/100 MG TAB PO SCH ×3 (09:19→19:59)
[2022-12-10] MEDS: Fluticasone NASAL SPRAY 50MCG 16 gm SPRAY BTL BOTH NARES SCH (09:27)
[2022-12-10] MEDS: Polyethylene Glycol 3350 17 GM PACKET PO SCH (10:22)
[2022-12-10] MEDS: Enoxaparin 40 MG/0.4 ML SYR SUBCUT SCH ×2 (10:22→10:29)
[2022-12-10] MEDS: DULoxetine DR 60 mg CAP PO SCH (14:33)
[2022-12-11] MEDS: fentaNYL Patch Check Q Shift NOTE FOLLOW UP SCH ×3 (07:10→23:19)
[2022-12-11] MEDS: Polyethylene Glycol 3350 17 GM PACKET PO SCH (09:14)
[2022-12-11] MEDS: Cholecalciferol (VIT D3) 1,000 unit TAB PO SCH (09:15)
[2022-12-11] MEDS: ENTACAPONE 200 MG PO SCH ×3 (09:17→20:45)
[2022-12-11] MEDS: Carbidopa/Levodop 25/100 MG TAB PO SCH ×3 (09:17→20:45)
[2022-12-11] MEDS: Fluticasone NASAL SPRAY 50MCG 16 gm SPRAY BTL BOTH NARES SCH (09:18)
[2022-12-11] MEDS: Enoxaparin 40 MG/0.4 ML SYR SUBCUT SCH (09:18)
[2022-12-11] MEDS: DULoxetine DR 60 mg CAP PO SCH (15:18)
[2022-12-12 06:28] LABS: ABS Eosinophils 0.1 10^3/ul (0-0.6); ABS Lymphocytes 1.2 10^3/ul (1.0-4.8); ABS Monocytes 0.6 10^3/ul (0-0.8); ABS Neutrophils 5.7 10^3/ul (1.5-7.7); Eosinophil % 0.7 %; Hematocrit 39 % (42-52); Hemoglobin 13.1 g/dL (14.0-18.0); Lymphocyte % 16.3 %; Mean Corpuscular HGB Conc 34 g/dL (31-36); Mean Corpuscular Hemoglobin 30 pg (27-31); Mean Corpuscular Volume 88 fL (80-94); Mean Platelet Volume 6.9 fL (7.4-10.4); Platelet Count 242 10^3/uL (150-450); Red Blood Count 4.42 10^6 /uL (4.18-5.48); Red Cell Distribution Width 13 % (10-15); White Blood Count 7.6 10^3/uL (3.5-10.8)
[2022-12-12] MEDS: fentaNYL Patch Check Q Shift NOTE FOLLOW UP SCH ×3 (07:01→23:18)
[2022-12-12] MEDS: Polyethylene Glycol 3350 17 GM PACKET PO SCH (09:45)
[2022-12-12] MEDS: Cholecalciferol (VIT D3) 1,000 unit TAB PO SCH (09:45)
[2022-12-12] MEDS: Fluticasone NASAL SPRAY 50MCG 16 gm SPRAY BTL BOTH NARES SCH (09:45)
[2022-12-12] MEDS: Carbidopa/Levodop 25/100 MG TAB PO SCH ×3 (09:45→21:55)
[2022-12-12] MEDS: ENTACAPONE 200 MG PO SCH ×3 (09:45→21:57)
[2022-12-12] MEDS: Enoxaparin 40 MG/0.4 ML SYR SUBCUT SCH (10:10)
[2022-12-12] MEDS: DULoxetine DR 60 mg CAP PO SCH (14:19)
[2022-12-12] MEDS: fentaNYL PATCH 12 MCG/HR 1 PATCH TRANSDERM SCH (21:48)
[2022-12-13] MEDS: fentaNYL Patch Check Q Shift NOTE FOLLOW UP SCH ×3 (07:16→23:28)
[2022-12-13] MEDS: Polyethylene Glycol 3350 17 GM PACKET PO SCH (09:04)
[2022-12-13] MEDS: Fluticasone NASAL SPRAY 50MCG 16 gm SPRAY BTL BOTH NARES SCH (09:05)
[2022-12-13] MEDS: ENTACAPONE 200 MG PO SCH ×3 (09:06→21:18)
[2022-12-13] MEDS: Carbidopa/Levodop 25/100 MG TAB PO SCH ×3 (09:07→21:16)
[2022-12-13] MEDS: Cholecalciferol (VIT D3) 1,000 unit TAB PO SCH (09:07)
[2022-12-13] MEDS: Enoxaparin 40 MG/0.4 ML SYR SUBCUT SCH (09:08)
[2022-12-13] MEDS: DULoxetine DR 60 mg CAP PO SCH (16:15)
[2022-12-14 06:41] VITALS: BP 108/70
[2022-12-14 07:03] LABS: ABS Lymphocytes 1.2 10^3/ul (1.0-4.8); ABS Monocytes 0.7 10^3/ul (0-0.8); Eosinophil % 0.6 %; Hematocrit 40 % (42-52); Hemoglobin 13.2 g/dL (14.0-18.0); Lymphocyte % 17.5 %; Mean Corpuscular HGB Conc 33 g/dL (31-36); Mean Corpuscular Hemoglobin 30 pg (27-31); Mean Corpuscular Volume 91 fL (80-94); Mean Platelet Volume 7.2 fL (7.4-10.4); Platelet Count 208 10^3/uL (150-450); Red Blood Count 4.41 10^6 /uL (4.18-5.48); Red Cell Distribution Width 14 % (10-15)
[2022-12-14] MEDS: fentaNYL Patch Check Q Shift NOTE FOLLOW UP SCH (07:25)
[2022-12-14] MEDS: Fluticasone NASAL SPRAY 50MCG 16 gm SPRAY BTL BOTH NARES SCH (09:42)
[2022-12-14] MEDS: Polyethylene Glycol 3350 17 GM PACKET PO SCH (09:42)
[2022-12-14] MEDS: Carbidopa/Levodop 25/100 MG TAB PO SCH ×2 (09:44→14:33)
[2022-12-14] MEDS: Cholecalciferol (VIT D3) 1,000 unit TAB PO SCH (09:44)
[2022-12-14] MEDS: Enoxaparin 40 MG/0.4 ML SYR SUBCUT SCH (09:44)
[2022-12-14] MEDS: ENTACAPONE 200 MG PO SCH ×2 (09:44→14:34)
[2022-12-14] MEDS: DULoxetine DR 60 mg CAP PO SCH (14:34)
== END 2022-12-14 15:05 | disposition home or self-care (01) | DRG 546 ==
LOC: PMRU 13:58
PROVIDERS: ADMIT Physical Medicine & Rehabilitation; ATTEND Physical Medicine & Rehabilitation